=== PATIENT | female | born 1965 | race Caucasian/White ===

== ENCOUNTER 2017-02-01 09:08 | Emergency (ER) | payer MEDICARE, OTHER ==
[2017-02-01] MEDS ORDERED: NS 0.9% 1000 ML* 2,000 ML IV ONE (09:52)
[2017-02-01 10:03] LABS: Hematocrit 47 % (35-47); Hemoglobin 16.2 g/dl (12.0-16.0); Mean Corpuscular HGB Conc 34 g/dl (31-36); Mean Corpuscular Hemoglobin 29 pg (27-31); Mean Corpuscular Volume 85 fL (80-97); Mean Platelet Volume 7 um3 (7.4-10.4); Red Blood Count 5.52 10^6/ul (4.0-5.4); Red Cell Distribution Width 13 % (10.5-15); White Blood Count 6.3 10^3/ul (3.5-10.8)
[2017-02-01 10:05] LABS: Comments Flag Yes
[2017-02-01 10:06] LABS: Add Diff/Slide Review? Slide Review Added
[2017-02-01 10:24] LABS: ALT 13 U/L (7-52); Albumin 4.6 g/dL (3.2-5.2); Alkaline Phosphatase 62 U/L (34-104); Blood Urea Nitrogen 10 mg/dL (6-24); CO2 Carbon Dioxide 27 mmol/L (22-32); Calcium 10.3 mg/dL (8.6-10.3); Chloride 104 mmol/L (101-111); Creatine Kinase 50 U/L (10-223); EGFR African American 92.5 (>60); EGFR Non-African American 71.9 (>60); Globulin 3.2 g/dL (2-4); Glucose 100 mg/dL (70-100); Sodium 137 mmol/L (133-145); Total Protein 7.8 g/dL (6.4-8.9)
[2017-02-01 10:35] LABS: Cholesterol 251 mg/dL; HDL Cholesterol 54.6 mg/dL; LDL Cholesterol 177 mg/dL; Triglycerides 99 mg/dL
--- NOTE | 2017-02-01 10:47 | RAD ---
Indication: Left-sided weakness, stroke. CT of the brain was performed without IV contrast. Comparison is made with previous exam dated December 05, 2016. Ventricular structures are midline. No midline shift is noted. The extraction spaces are unremarkable. There is no evidence of intracranial mass or hemorrhage. No other high or low density lesions are identified. Mastoid air cells and paranasal sinuses are otherwise unremarkable. IMPRESSION: No intracranial mass or hemorrhage is noted.
[2017-02-01 12:50] LABS: TSH (Thyroid Stimulating Horm) 7.31 mcIU/mL (0.34-5.60)
[2017-02-01] MEDS ORDERED: Aspirin TAB* 325 MG PO ONE (12:51)
[2017-02-01 12:55] LABS: Magnesium 1.9 mg/dL (1.9-2.7)
[2017-02-01 13:07] VITALS: BP 141/68
--- NOTE | 2017-02-01 14:15 | ED ---
Jaime Diaz Auryana, scribed for Ivan Callahan MD on 02/01/17 at 1156 . Neurological HPI - HPI Summary HPI Summary: 51 year old female presents with headache starting 2 days and weakness starting 1 day ago. She reports that she also had palpitations and mild chest tightness yesterday intermittently lasting for about 1 hour. She states that her left side feels heavy but is able to control it extremities. She denies vision changes, SOB, pain with inspiration, abdominal pain, pain/edema in the lower extremities, and dysuria/abnormal urine color. She denies any trouble with ambulation. She reports recent long drive for move to [place]. PMHX of stents and denies any history of stroke or DM. No past stress test and no daily medication. She denies any tobacco, alcohol, or other drug use. She has an appointment with Dr. Oro 02/06/17 to establish care. - History of Current Complaint Chief Complaint: EDGeneral Stated Complaint: LIGHT HEADED, WEAK Time Seen by Provider: 02/01/17 09:54 Last Known Well Date: 01/30/17 Hx Obtained From: Patient Hx Last Menstrual Period: n/a Onset/Duration: Gradual Onset, Started days ago - 2 for the headache , 1 day ago - weakness, Still Present Timing: Constant Onset Severity: Mild Current Severity: Mild Seizure Severity: Moderate Pain Intensity: 7 Pain Scale Used: 0-10 Numeric Character: Weak, Motor Weakness, Other: - headache Associated Signs and Symptoms: Positive: Headache, Weakness. Negative: Unsteady Gait, Visual Changes, Pain, Impaired Speech, Numbness - Allergy/Home Medications Allergies/Adverse Reactions: Allergies Allergy/AdvReac Type Severity Reaction Status Date / Time Codeine Allergy Anaphylatic Verified 06/19/16 15:49 Shock Morphine Allergy Anaphylatic Verified 06/19/16 15:49 Shock Penicillins [PCN] Allergy Anaphylatic Verified 06/19/16 15:49 Shock PMH/Surg Hx/FS Hx/Imm Hx Endocrine/Hematology History: Denies: Hx Diabetes Cardiovascular History: Reports: Hx Cardiomegaly, Hx Coronary Artery Disease, Hx Hypertension, Other Cardiovascular Problems/Disorders - stents x8, ventrical disease, post partem cardiomyopathy Denies: Hx Congestive Heart Failure, Hx Pacemaker/ICD Sensory History: Denies: Hx Hearing Aid Psychiatric History: Reports: Hx Panic Disorder - SEVERE PTSD - QUIET SCANS AND MEDICATION NECESSARY - Cancer History Cancer Type, Location and Year: Throat CA, ovarian cancer - Surgical History Surgery Procedure, Year, and Place: PT KEEPS LEAVING AMA - MRI NEEDS ALL STENT INFO PRIOR TO PT BEING ABLE TO BE SCANNED. Hysterectomy, Lt wrist surgery with orif, right calcaneal surgery, tonsillectomy, appendectomy, laproscopic cholecystectomy. multiple heart cath and stentings - ([facility], [facility], [facility]. [facility], [facility] WAS MULTIPLE HEART PROCEDURES D/T INFECTION/CARDIAC ISSUES) MRI NEEDS ALL INFO PRIOR TO SCANNING D/T MULTIPLE STENTS (PER PT UP TO 8 TOTAL STENTS PLACED). Infectious Disease History: No Infectious Disease History: Denies: Traveled Outside the [place] in Last 30 Days - Family History Known Family History: Positive: Unknown, Cardiac Disease, Other - cancer - Social History Alcohol Use: None Alcohol Amount: unknowm Hx Substance Use: No Substance Use Type: Reports: None Hx Tobacco Use: Yes Smoking Status (MU): Former Smoker Type: Cigarettes Amount Used/How Often: 4-10 daily Length of Time of Smoking/Using Tobacco: 10 years Have You Smoked in the Last Year: Yes Review of Systems Constitutional: Negative Negative: Fever Eyes: Negative ENT: Negative Cardiovascular: Negative Negative: Chest Pain Respiratory: Negative Negative: Shortness Of Breath Positive: Weakness Psychological: Normal All Other Systems Reviewed And Are Negative: Yes Physical Exam - Summary Physical Exam Summary: The patient is well-nourished in no acute distress and in no acute pain. The skin is warm and dry and skin color reflects adequate perfusion. HEENT: The head is normocephalic and atraumatic. The pupils are equal and reactive. The conjunctivae are clear and without drainage. Nares are patent and without drainage. Mouth reveals moist mucous membranes and the throat is without erythema and exudate. The external ears are intact. The ear canals are patent and without drainage. The tympanic membranes are intact. Changes in Visual acuity in the left eye. Neck is supple with full range of motion and non-tender. There are no carotid bruits. There is no neck vein distension. Respiratory: Chest is non-tender. Lungs are clear to auscultation and breath sounds are symmetrical and equal. Cardiovascular: Hear is regular rate and rhythm. There is no murmur or rub auscultated. There is no peripheral edema and pulses are symmetrical and equal. No JVD. Abdomen: The abdomen is soft and non-tender. There are normal bowel sounds heard in all four quadrants and there is no organomegaly palpated. Musculoskeletal: There is no back pain noted. Extremities are non-tender with full range of motion. There is good capillary refill. There is no peripheral edema or calf tenderness elicited. Neurological: Patient is alert and oriented to person, place and time. The patient has symmetrical motor strength in all four extremities. Cranial nerves are grossly intact. Deep tendon reflexes are symmetrical and equal in all four extremities. No numbness in the face. No facial droop. Trouble with left shoulder shrug. Good dentition. Left arm drift and decreased motor strength as compared to the right. Left arm trouble with finger to nose. Left leg drift and trouble with heel to toe. Neg babinski sign. Psychiatric: The patient has an appropriate affect and does not exhibit any anxiety or depression. Triage Information Reviewed: Yes Vital Signs On Initial Exam: Initial Vitals Temp Pulse Resp BP Pulse Ox 98.8 F 90 20 144/92 98 02/01/17 09:10 02/01/17 09:10 02/01/17 09:10 02/01/17 09:10 02/01/17 09:10 Vital Signs Reviewed: Yes Diagnostics - Vital Signs Vital Signs Temp Pulse Resp BP Pulse Ox 02/01/17 09:15 99.2 F 100 20 144/92 98 02/01/17 09:10 98.8 F 90 20 144/92 98 - Laboratory Lab Results: Lab Results 02/01/17 Range/Units 09:45 WBC 6.3 (3.5-10.8) 10^3/ul RBC 5.52 H (4.0-5.4) 10^6/ul Hgb 16.2 H (12.0-16.0) g/dl Hct 47 (35-47) % MCV 85 (80-97) fL MCH 29 (27-31) pg MCHC 34 (31-36) g/dl RDW 13 (10.5-15) % Plt Count 286 (150-450) 10^3/ul MPV 7 L (7.4-10.4) um3 Neut % (Auto) 77.1 (38-83) % Lymph % (Auto) 17.0 L (25-47) % Stephens % (Auto) 4.3 (1-9) % Eos % (Auto) 1.3 (0-6) % Baso % (Auto) 0.3 (0-2) % Absolute Neuts (auto) 4.9 (1.5-7.7) 10^3/ul Absolute Lymphs (auto) 1.1 (1.0-4.8) 10^3/ul Absolute Monos (auto) 0.3 (0-0.8) 10^3/ul Absolute Eos (auto) 0.1 (0-0.6) 10^3/ul Absolute Basos (auto) 0 (0-0.2) 10^3/ul Absolute Nucleated RBC 0.06 10^3/ul Nucleated RBC % 0.9 Result Diagrams: 02/01/17 09:45 02/01/17 11:58 Lab Statement: Any lab studies that have been ordered have been reviewed, and results considered in the medical decision making process. - CT BRAIN CT CT Interpretation: No Acute Changes CT Interpretation Completed By: Radiologist - EKG 09:27 EKG Interpretation: NSR, NML AXIS, NON SPECIFIC CHANGES NIH Scale - NIH Scale Level of Consciousness: Alert/Keenly Responsive Ask Patient the Month and His/Her Age: Both Correct Ask Pt to Open/Close Eyes and Clock And Watch Assembler/Release Non-Paretic Hand: Both Correctly Best Gaze (Only Horizontal Eye Movement): Normal Visual Field Testing: Partial Hemianopia Facial Paresis-Pt to Smile & Close Eyes or Grimace Symmetry: Minor Paralysis Motor Function - Right Arm: No Drift-Holds 10 Seconds Motor Function - Left Arm: Drifts LT 10 seconds Motor Function - Right Leg: No Drift-Holds 10 Seconds Motor Function - Left Leg: Drifts LT 10 seconds Limb Ataxia-Must be out of Proportion to Weakness Present: Absent Sensory (Use Pinprick to Test Arms/Legs/Trunk/Face): Normal Best Language (Describe Picture, Name Items): No Aphasia Dysarthria (Read Several Words): Normal Extinction and Inattention: No Abnormality Total Score: 4 Re-Evaluation - Re-Evaluation First Eval Re-Evaluation Time: 12:19 - discussed labs, imaging, and plan of action Change: Unchanged Second Eval Re-Evaluation Time: 12:44 - Patient still wishes to leave despite recommendation to stay Course/Dx - Course Assessment/Plan: 51 year old female comes in with headache starting 2 days ago and left sided weakness starting yesterday. She also has intermittent episodes of chest tightness and palpitations. SHe has a PMHx of cardiac stents. She is not on any daily medication and has not had a stress test. She recently just moved to [place] and has a PCP appointment on 02/06/17 to establish care. Blood work ordered - TSH 7.31, AST 12, nml D-Dimer, otherwise unremarkable. CT brain ordered - negative. EKG- non-specific changes but otherwise normal. Results were discussed with patient and she wishes to go home despite recommendations for admission. Will have patient sign out AMA, recommend daily ASA, and to keep scheduled follow up appointment. Diagnosis: Stroke. - Differential Dx Differential Diagnoses Neuro: Positive: Cerebrovascular Accident, Hypertension, Transient Ischemic Attack, Other - dehydration, chest pain - Diagnoses Provider Diagnoses: Stroke, Left against medical advice Discharge - Discharge Plan Condition: Critical Disposition: AGAINST MEDICAL ADVICE Patient Education Materials: Transient Ischemic Attack (ED), Weakness (ED) Referrals: Abdirashid Oro MD [Medical Doctor] - (Keep scheduled appointment ) Additional Instructions: RECOMMENDED TO TAKE ASPIRIN DAILY. The documentation as recorded by the Jaime friend Auryana accurately reflects the service I personally performed and the decisions made by me, Ivan Callahan MD.
== END 2017-02-01 13:32 | disposition left against medical advice (07) ==
LOC: ED 09:08
DX: I63.9 Cerebral infarction, unspecified (principal); R51 Headache; R53.1 Weakness; Z87.891 Personal history of nicotine dependence; Z53.21 Procedure and treatment not carried out due to patient leaving prior to being seen by health care provider
CPT/HCPCS: 36415; 70450; 80053; 80061; 82550; 83605; 83735; 83880; 84443; 84484; 85025; 85379; 85610; 93005; 99283

== ENCOUNTER 2017-02-05 12:09 | Emergency (ER) | payer SELFPAY ==
[2017-02-05 17:07] LABS: Hematocrit 43 % (35-47); Hemoglobin 14.7 g/dl (12.0-16.0); Mean Corpuscular HGB Conc 34 g/dl (31-36); Mean Corpuscular Hemoglobin 29 pg (27-31); Mean Corpuscular Volume 84 fL (80-97); Red Blood Count 5.16 10^6/ul (4.0-5.4); Red Cell Distribution Width 13 % (10.5-15); White Blood Count 7.6 10^3/ul (3.5-10.8)
[2017-02-05 17:08] LABS: Add Diff/Slide Review? Slide Review Added; Comments Flag Yes
[2017-02-05 17:21] LABS: Albumin 4.3 g/dL (3.2-5.2); BUN/Creatinine Ratio 17.8 (8-20); Calcium 10.1 mg/dL (8.6-10.3); EGFR African American 107.2 (>60); EGFR Non-African American 83.4 (>60); Potassium 3.7 mmol/L (3.5-5.0); Total Bilirubin 0.4 mg/dL (0.2-1.0); Total Protein 7.3 g/dL (6.4-8.9)
--- NOTE | 2017-02-05 18:22 | ED ---
Jaime Diaz Auryana, scribed for Daniele Vazquez MD on 02/05/17 at 1732 . Neurological HPI - HPI Summary HPI Summary: 51 year old female presents with left sided weakness starting 04:00 this morning. She reports that she also has a headache, nausea, and tongue heaviness. She states that this morning her friend said that she sounded confused. She was seen here in [facility] with left sided weakness 2 days ago - left AMA. Per medical records - admission for left sided weakness 06/20/16. PMHx is significant for CAD, NC with stents, CVA, and ovarian cancer. - History of Current Complaint Chief Complaint: EDWeakness Stated Complaint: NUMBNESS ON LEFT SIDE Time Seen by Provider: 02/05/17 17:14 Last Known Well Date: 02/06/16 04:00 Hx Obtained From: Patient Hx Last Menstrual Period: n/a Onset/Duration: Gradual Onset, Started hours ago - AT 04:00, Still Present Timing: Constant Onset Severity: Mild Current Severity: Mild Neurological Deficit Location: Facial - left sided, LUE, LLE Headache Location: Diffuse (Right), Diffuse (Left) Pain Intensity: 5 Pain Scale Used: 0-10 Numeric Character: Motor Weakness Alleviating: Nothing Associated Signs and Symptoms: Positive: Headache, Impaired Speech - tongue heaviness and impaired speech per friend, Nausea/Vomiting - nausea - Allergy/Home Medications Allergies/Adverse Reactions: Allergies Allergy/AdvReac Type Severity Reaction Status Date / Time Codeine Allergy Anaphylatic Verified 06/19/16 15:49 Shock Morphine Allergy Anaphylatic Verified 06/19/16 15:49 Shock Penicillins [PCN] Allergy Anaphylatic Verified 06/19/16 15:49 Shock PMH/Surg Hx/FS Hx/Imm Hx Endocrine/Hematology History: Denies: Hx Diabetes Cardiovascular History: Reports: Hx Cardiomegaly, Hx Coronary Artery Disease, Hx Hypertension, Other Cardiovascular Problems/Disorders - stents x8, ventrical disease, post partem cardiomyopathy Denies: Hx Congestive Heart Failure, Hx Pacemaker/ICD Sensory History: Denies: Hx Hearing Aid Psychiatric History: Reports: Hx Panic Disorder - SEVERE PTSD - QUIET SCANS AND MEDICATION NECESSARY - Cancer History Cancer Type, Location and Year: Throat CA, ovarian cancer - Surgical History Surgery Procedure, Year, and Place: PT KEEPS LEAVING AMA - MRI NEEDS ALL STENT INFO PRIOR TO PT BEING ABLE TO BE SCANNED. Hysterectomy, Lt wrist surgery with orif, right calcaneal surgery, tonsillectomy, appendectomy, laproscopic cholecystectomy. multiple heart cath and stentings - ([facility], [facility]. [facility], [facility] WAS MULTIPLE HEART PROCEDURES D/T INFECTION/CARDIAC ISSUES) MRI NEEDS ALL INFO PRIOR TO SCANNING D/T MULTIPLE STENTS (PER PT UP TO 8 TOTAL STENTS PLACED). Infectious Disease History: Denies: Traveled Outside the US in Last 30 Days - Family History Known Family History: Positive: Unknown, Cardiac Disease, Other - cancer - Social History Occupation: Unemployed Lives: Alone Alcohol Use: None Alcohol Amount: unknowm Hx Substance Use: No Substance Use Type: Reports: None Hx Tobacco Use: Yes Smoking Status (MU): Former Smoker Type: Cigarettes Amount Used/How Often: 4-10 daily Length of Time of Smoking/Using Tobacco: 10 years Have You Smoked in the Last Year: Yes Review of Systems Constitutional: Negative Negative: Fever Eyes: Negative ENT: Negative Cardiovascular: Negative Respiratory: Negative Gastrointestinal: Negative Genitourinary: Negative Musculoskeletal: Negative Skin: Negative Positive: Weakness Psychological: Normal All Other Systems Reviewed And Are Negative: Yes Physical Exam Triage Information Reviewed: Yes Vital Signs On Initial Exam: Initial Vitals Temp Pulse Resp BP Pulse Ox 97.6 F 93 18 117/88 98 02/05/17 12:11 02/05/17 12:11 02/05/17 12:11 02/05/17 12:11 02/05/17 12:11 Vital Signs Reviewed: Yes Appearance: Positive: Well-Appearing, No Pain Distress Skin: Positive: Warm, Skin Color Reflects Adequate Perfusion, Dry Head/Face: Positive: Normal Head/Face Inspection Eyes: Positive: EOMI, KRISTOPHER ENT: Positive: Normal ENT inspection Neck: Positive: Supple, Nontender Respiratory/Lung Sounds: Positive: Clear to Auscultation, Breath Sounds Present Cardiovascular: Positive: RRR Abdomen Description: Positive: Nontender, Soft Bowel Sounds: Positive: Present Musculoskeletal: Positive: Normal, Strength/ROM Intact Neurological: Positive: Normal, Sensory/Motor Intact, Alert, Oriented to Person Place, Time, CN Intact II-III, Finger to Nose - trouble with finger to nose on L , Facial Symmetry - NML, Pronator Drift Present - on Left arm and leg, Other - reports decreased sensation on the left face,arm, and leg Psychiatric: Positive: Affect/Mood Appropriate Diagnostics - Vital Signs Vital Signs Temp Pulse Resp BP Pulse Ox 02/05/17 16:13 97.7 F 103 18 155/93 100 02/05/17 14:58 115 02/05/17 14:01 97.7 F 104 18 150/84 100 02/05/17 12:11 97.6 F 93 18 117/88 98 - Laboratory Lab Results: Lab Results 02/05/17 02/05/17 Range/Units 16:50 16:50 WBC 7.6 (3.5-10.8) 10^3/ul RBC 5.16 (4.0-5.4) 10^6/ul Hgb 14.7 (12.0-16.0) g/dl Hct 43 (35-47) % MCV 84 (80-97) fL MCH 29 (27-31) pg MCHC 34 (31-36) g/dl RDW 13 (10.5-15) % Plt Count Pending Neut % (Auto) 74.7 (38-83) % Lymph % (Auto) 19.8 L (25-47) % Lynn % (Auto) 3.5 (1-9) % Eos % (Auto) 0.9 (0-6) % Baso % (Auto) 1.1 (0-2) % Absolute Neuts (auto) 5.7 (1.5-7.7) 10^3/ul Absolute Lymphs (auto) 1.5 (1.0-4.8) 10^3/ul Absolute Monos (auto) 0.3 (0-0.8) 10^3/ul Absolute Eos (auto) 0.1 (0-0.6) 10^3/ul Absolute Basos (auto) 0.1 (0-0.2) 10^3/ul Absolute Nucleated RBC 0.02 10^3/ul Nucleated RBC % 0.3 INR (Anticoag Therapy) 0.91 (0.89-1.11) APTT 16.6 L (26.0-36.3) seconds Result Diagrams: 02/05/17 16:50 02/05/17 16:50 Lab Statement: Any lab studies that have been ordered have been reviewed, and results considered in the medical decision making process. 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 LEFT Best Gaze (Only Horizontal Eye Movement): Normal Visual Field Testing: Partial Hemianopia - trouble with finger to nose on the left Facial Paresis-Pt to Smile & Close Eyes or Grimace Symmetry: Normal/Symmetrical Motor Function - Right Arm: No Drift-Holds 10 Seconds Motor Function - Left Arm: Drifts LT 10 seconds Motor Function - Right Leg: No Drift-Holds 10 Seconds Motor Function - Left Leg: Drifts LT 10 seconds Limb Ataxia-Must be out of Proportion to Weakness Present: Absent Sensory (Use Pinprick to Test Arms/Legs/Trunk/Face): Pinprick Less on Affected - reports decreased sensation on left arm, and leg Best Language (Describe Picture, Name Items): No Aphasia Dysarthria (Read Several Words): Normal Extinction and Inattention: No Abnormality - reports decreased sensation on left side of face, arm, and leg Total Score: 5 Course/Dx - Course Course Of Treatment: NO CRITICAL CARE TIME Assessment/Plan: DISCUSSED WITH DR MICHELLE. ADMIT HOSPITALIST STABLE. - Diagnoses Provider Diagnoses: Left-sided weakness - Physician Notifications Discussed Care of Patient With: Dr. Laughlin Time Discussed With Above Provider: 17:45 - agrees to admit Discharge - Discharge Plan Condition: Stable Disposition: ADMITTED TO [facility] Referrals: Non Staff,Doctor [Primary Care Provider] - The documentation as recorded by the Jaime friend Auryana accurately reflects the service I personally performed and the decisions made by me, Daniele Vazquez MD.
[2017-02-05 18:46] LABS: TSH (Thyroid Stimulating Horm) 13.05 mcIU/mL (0.34-5.60)
[2017-02-05] MEDS ORDERED: Aspirin TAB* 325 MG PO ONE (18:56)
[2017-02-05] MEDS ORDERED: Atorvastatin* 40 MG TAB PO SCH (18:57)
[2017-02-05] MEDS ORDERED: LORazepam TAB(*) 1 MG PO PRN (18:58)
[2017-02-05] MEDS ORDERED: Metoprolol Succinate XL TAB* 25 MG PO SCH (19:00)
[2017-02-05 19:45] VITALS: BP 105/69
[2017-02-05 21:56] LABS: HDL Cholesterol 56.9 mg/dL
[2017-02-05 22:16] LABS: Free T4 0.62 ng/dL (0.61-1.12)
--- NOTE | 2017-02-06 00:09 | HP ---
HISTORY AND PHYSICAL: DATE OF ADMISSION: 02/05/17 - EMERGENCY DEPT PRIMARY CARE PHYSICIAN: Dr. Gerber Oro. CHIEF COMPLAINT: Left-sided weakness and heaviness. HISTORY OF PRESENT ILLNESS: Ms. Can is a 51-year-old female with a past medical history of hypertension; CAD, status post multiple stents; PTSD; ovarian cancer; aortic insufficiency, status post TAVR within the past 1 to 2 months; reported history of bulimia; possibly newly diagnosed throat cancer, who presents to the hospital with recent syncopal episode and left-sided weakness. The patient seems to have some mild confusion with somewhat limited history, although certainly clear on some aspects. Her friend, Pavithra, is at the bedside with the patient, asked to leave the room twice during our interaction. It seems that the patient's symptoms with left-sided weakness have been ongoing for some time. She states that 2 days ago, she was visiting her brother in assisted and apparently while she was in the assisted, while sitting at a table, she syncopized, slipped forward, and hit her head on the table. She states that she does not remember this. Her friend, Pavithra, who is present here was not there for the event; however, she spoke to the people present for it, who confirmed this. The patient is currently in the process of moving to this area from [place] to try to establish care here and get more help. The patient went back to Pavithra's house that night, was feeling very tired and fatigued, felt that her left side was "dragging." Yesterday, she went to work with Pavithra. She seemed to be doing okay throughout the day, although spent most of the day resting. That night, she made dinner for the family, although she did feel quite fatigued. This morning, the fatigue and confusion seemed to get worse and she felt that her left-sided weakness was also getting worse. States that her tongue has been heavy. Denies any dysphagia. Has not had any fever or chills, although reports some occasional sweats. Denies any shortness of breath. Has chronic nausea and vomiting. No abdominal pain. States she has frequent epistaxis and has needed transfusions in the past for hemoglobin less than 7.5. The patient was here on February 01 with similar symptoms and had a CT scan that was negative; however, she left against medical advice before she could be admitted to the hospital. The patient was also admitted here in May 2016 with similar symptoms. She was evaluated by Neurology at that time and it was felt that her symptoms may be psychosomatic in nature, as she was having large amount of stress in her life at that time, which she states she is also having now. The patient again left AMA prior to getting an MRI. PAST MEDICAL HISTORY: Hypertension; CAD, status post multiple stents; PTSD; ovarian cancer; history of bulimia; aortic insufficiency, status post TAVR; questionable throat cancer. PAST SURGICAL HISTORY: TAVR 1 to [address] [facility]; multiple stent placements; left oophorectomy and salpingectomy. HOME MEDICATIONS: None. The patient states she has tried to treat herself holistically. ALLERGIES: Reports allergies to MORPHINE, CODEINE, and PENICILLIN. FAMILY HISTORY: Significant for her mother with lung cancer. Father with Parkinson's and CAD. Paternal grandmother and paternal grandfather both with cancer. Maternal grandmother with breast cancer. SOCIAL HISTORY: The patient occasionally smokes cigarettes. States the most she smoked was about a half a pack per day for 15 years. Has an occasional glass of wine. Denies any illicit drug use. REVIEW OF SYSTEMS: A 12-point review of systems is negative except for that as noted in the HPI PHYSICAL EXAMINATION GENERAL: The patient is a middle-aged female, lying in bed, in no apparent distress. VITAL SIGNS: On admission, temperature 97.6, heart rate of 93, respiratory rate of 18, O2 saturation 98% on room air, blood pressure of 117/88. HEENT: Pupils equal, round, reactive to light and accommodation. Anicteric sclerae. Moist mucous membranes. NECK: No cervical adenopathy. LUNGS: Clear to auscultation bilaterally. No wheezes, rales, or rhonchi. CARDIOVASCULAR: Regular rate and rhythm. S1, S2 present. No murmurs, gallops , or rubs. ABDOMEN: Soft, nontender, and nondistended. Bowel sounds positive. EXTREMITIES: No cyanosis, clubbing, or edema. NEURO: The patient is alert and oriented x3. Some left-sided gaze abnormalities, left-sided facial droop. Reports decreased sensation over V2 and V3 on the left side. Left-sided weakness with shoulder shrug. Left upper extremity 4/5 strength throughout. Right upper extremity 5/5 strength throughout. Left lower extremity 4/5 strength throughout. Right lower extremity 5/5 strength throughout. No pronator drift on the left; however, she does drop the left arm. The patient also had a staring episode and some left eye twitching. DIAGNOSTIC STUDIES/LAB DATA: White blood cell count of 7.6, hemoglobin of 14.7 , hematocrit of 43, platelets of 242. INR of 0.91. Sodium of 139, potassium 3.7, chloride of 104, carbon dioxide 29, BUN of 13, creatinine 0.73. LFTs within normal limits. Troponin of 0.00. TSH of 13.05. EKG: Personally reviewed shows left ventricular hypertrophy, sinus rhythm, no acute ST changes. Recent CT of the brain, on 02/01/17, shows no intracranial mass or hemorrhage. ASSESSMENT AND PLAN: Left-sided weakness, fatigue, possibly some confusion in a 51- year-old female with past medical history of hypertension; coronary artery disease, status post stenting; posttraumatic stress disorder; ovarian cancer; aortic regurgitation, status post transcatheter aortic valve replacement ; reported history of bulimia; throat cancer, who is currently off medications. 1. Left-sided weakness. The patient is exhibiting a number of neurological symptoms. She has been seen in the hospital multiple times in the past and has signed out AMA prior to getting an MRI. She has also been evaluated by Neurology and had an EEG during the last visit as well that is within normal limits. I think there is a good chance that some or all of her symptoms are psychosomatic in nature; however, it would be prudent to rule out stroke on imaging. The patient states she has had an MRI within the past few years and would ask to be premedicated if she is to get one here. I will order an MRI and Ativan for the patient to get prior to the study. We will start the patient on aspirin and a statin. We will recheck an echocardiogram as the patient reports having a transcatheter aortic valve replacement in the interim since the last echo. We will also monitor the patient on telemetry. 2. Hypertension; coronary artery disease, status post stent placement. As noted above, we will start the patient on aspirin and atorvastatin. We will also start a low-dose beta paty. 3. Aortic insufficiency, status post transcatheter aortic valve replacement. We will try to obtain records from the patient's [facility] stay. She states she had been on blood thinners prior to admission to the hospital; however, she left AMA. It is unclear if the plan is for her to remain on blood thinners or not, but she has not been compliant. 4. Possible throat cancer. The patient states she had a biopsy at [facility]. We will try to obtain records from this as well. 5. Hypothyroidism. The patient's TSH is elevated at 13. We will a check free T4. I will plan to start the patient on thyroid replacement tomorrow morning. 6. DVT prophylaxis: SCDs. The patient states she will refuse Lovenox or subcu heparin. 7. Disposition: The patient has an appointment with PCP tomorrow. Seems she has a very complex medical history and I will try my best to have this workup done and hopefully the patient can keep her appointment tomorrow. She would benefit greatly from more consistent outpatient followup to help juggle her multiple complex medical issues. 8. Code status: The patient is a full code. TIME SPENT: Total time spent on this admission 65 minutes, with over half the time spent [id number] with the patient in counseling and coordinating care. CC: Dr. Gerber Oro* [id number]/[facility] #: [id number] DANAE
[2017-02-06] MEDS ORDERED: Levothyroxine TAB* 50 MCG TAB PO SCH (06:00)
[2017-02-06] MEDS ORDERED: Aspirin Low Dose CHEW TAB* 81 MG PO SCH (09:00)
--- NOTE | 2017-02-06 23:40 | DS ---
DISCHARGE SUMMARY: DATE OF ADMISSION: 02/05/2017. DATE OF DISCHARGE: 02/05/2017. PRIMARY CARE PHYSICIAN: Dr. Gerber Oro. HISTORY: The patient left against medical advice. Please see my full history and physical for full details. Shortly after seeing the patient and dictating the history and physical, I was called back down to the emergency department that the patient wanted to leave immediately. She said she did not want to stay for the MRI and she would instead prefer to go home. The patient signed the AMA paperwork and was sent home against medical advice as she has done numerous times in the past. TIME SPENT: Total time spent on this discharge 5 minutes. This is a summary of the hospitalization, please see the full medical record for further details. [id number]/[facility] #: [id number] MTDD
== END 2017-02-05 20:03 | disposition left against medical advice (07) ==
LOC: ED 12:09 → EEVIPCON 12:09 → UNDOADMOB 18:54 → MEDTELE 18:54 → ED 20:03
DX: R53.1 Weakness (principal); I25.10 Atherosclerotic heart disease of native coronary artery without angina pectoris; F43.10 Post-traumatic stress disorder, unspecified; I25.2 Old myocardial infarction; Z95.818 Presence of other cardiac implants and grafts; Z95.2 Presence of prosthetic heart valve; Z88.5 Allergy status to narcotic agent; Z88.0 Allergy status to penicillin; Z82.49 Family history of ischemic heart disease and other diseases of the circulatory system; F17.210 Nicotine dependence, cigarettes, uncomplicated
CPT/HCPCS: 36415; 80053; 80061; 82550; 82553; 84439; 84443; 84484; 85025; 85610; 85730; 93005; 99284

== ENCOUNTER → 2017-03-12 18:12 | Emergency (ER) | payer MEDICARE | END | disposition left against medical advice (07) | LOC: ED 18:12 | DX: K92.1 Melena (principal); Z53.21 Procedure and treatment not carried out due to patient leaving prior to being seen by health care provider ==

== ENCOUNTER → 2017-04-03 10:30 | Emergency (ER) | payer MEDICARE ==
[~2017-04-03 10:30] MED LIST: NS 0.9% 1000 ML* 1,000 ML IV ONE; Ondansetron INJ* 2 MG/ML VIAL IV ONE
[2017-04-03 12:07] LABS: Hematocrit 44 % (35-47); Hemoglobin 15.1 g/dl (12.0-16.0); Mean Corpuscular HGB Conc 35 g/dl (31-36); Mean Corpuscular Hemoglobin 30 pg (27-31); Mean Corpuscular Volume 86 fL (80-97); Mean Platelet Volume 7 um3 (7.4-10.4); Red Blood Count 5.08 10^6/ul (4.0-5.4); Red Cell Distribution Width 13 % (10.5-15); White Blood Count 5.1 10^3/ul (3.5-10.8)
--- NOTE | 2017-04-03 12:13 | RAD ---
HISTORY: COPD, febrile COMPARISONS: December 05, 2016 VIEWS: 2: Frontal dual-energy and lateral views of the chest. FINDINGS: CARDIOMEDIASTINAL SILHOUETTE: The cardiomediastinal silhouette is normal. AYDEN: The ayden are normal. PLEURA: The costophrenic angles are sharp. No pleural abnormalities are noted. LUNG PARENCHYMA: There is hyperinflation with flattening of the diaphragm . ABDOMEN: The upper abdomen is clear. There is no subphrenic gas. BONES AND SOFT TISSUES: No bone or soft tissue abnormalities are noted. OTHER: None. IMPRESSION: HYPERINFLATION, WHICH CAN BE SEEN WITH COPD OR REACTIVE AIRWAY DISEASE. NO ACTIVE CARDIOPULMONARY DISEASE.
[2017-04-03 12:17] LABS: Albumin 4.1 g/dL (3.2-5.2); BUN/Creatinine Ratio 15.1 (8-20); C Reactive Protein 4.15 mg/L (< 5.00); Calcium 9.6 mg/dL (8.6-10.3); EGFR African American 107.2 (>60); EGFR Non-African American 83.4 (>60); Globulin 2.9 g/dL (2-4); Potassium 3.8 mmol/L (3.5-5.0)
[2017-04-03 12:26] LABS: Total Bilirubin 0.7 mg/dL (0.2-1.0)
[2017-04-03 13:26] VITALS: BP 137/71
--- NOTE | 2017-04-03 14:50 | ED ---
HPI Febrile Illness - HPI Summary HPI Summary: Patient presents to ED with N/V, fever, weakness and diarrhea which has been bustamante in color x 4 days. She states she has been putting off a colonoscopy and follow up with her PCP. She denies SOB or chest pain. N/V a few times per day for several day and diarrhea x 4 days. She feels dehydrated. She states she would not like her information to be sent to her PCP. Denies other symptoms and upon arrival she is requesting to be discharged. - History of Current Complaint Chief Complaint: EDFluSymptoms Time Seen by Provider: 04/03/17 11:28 Hx Obtained From: Patient Onset/Duration: Started Days Ago Timing: Constant Initial Severity: Severe Current Severity: Severe Pain Intensity: 4 Pain Scale Used: 0-10 Numeric Aggravating Factors: Nothing Alleviating Factors: Nothing Associated Signs and Symptoms: Cough, Diaphoresis, Diarrhea, Dizziness, Headache , Nausea, Sore Throat, Vomiting, Weakness - Risk Factors Pseudomonas Risk Factors: Chronic Lung Disease Serious Bacterial Infection Risk Factors: Negative - Allergy/Home Medications Allergies/Adverse Reactions: Allergies Allergy/AdvReac Type Severity Reaction Status Date / Time Codeine Allergy Anaphylatic Verified 04/06/17 03:03 Shock Morphine Allergy Anaphylatic Verified 04/06/17 03:03 Shock Penicillins [PCN] Allergy Anaphylatic Verified 04/06/17 03:03 Shock PMH/Surg Hx/FS Hx/Imm Hx Previously Healthy: Yes Endocrine/Hematology History: Denies: Hx Diabetes Cardiovascular History: Reports: Hx Cardiomegaly, Hx Coronary Artery Disease, Hx Hypertension, Other Cardiovascular Problems/Disorders - stents x8, ventrical disease, post partem cardiomyopathy Denies: Hx Congestive Heart Failure, Hx Pacemaker/ICD Sensory History: Denies: Hx Hearing Aid Psychiatric History: Reports: Hx Panic Disorder - SEVERE PTSD - QUIET SCANS AND MEDICATION NECESSARY - Cancer History Cancer Type, Location and Year: Throat CA, ovarian cancer - Surgical History Surgery Procedure, Year, and Place: PT KEEPS LEAVING AMA - MRI NEEDS ALL STENT INFO PRIOR TO PT BEING ABLE TO BE SCANNED. Hysterectomy, Lt wrist surgery with orif, right calcaneal surgery, tonsillectomy, appendectomy, laproscopic cholecystectomy. multiple heart cath and stentings - ([facility], [facility], [facility]. [facility], [facility] WAS MULTIPLE HEART PROCEDURES D/T INFECTION/CARDIAC ISSUES) MRI NEEDS ALL INFO PRIOR TO SCANNING D/T MULTIPLE STENTS (PER PT UP TO 8 TOTAL STENTS PLACED). Hx Anesthesia Reactions: No - Immunization History Hx Pertussis Vaccination: No Immunizations Up to Date: Unable to Obtain/Confirm Infectious Disease History: No Infectious Disease History: Denies: Traveled Outside the [place] in Last 30 Days - Family History Known Family History: Positive: Unknown, Cardiac Disease, Other - cancer - Social History Occupation: Employed Full-time Lives: With Family Alcohol Use: None Alcohol Amount: unknowm Hx Substance Use: No Substance Use Type: Reports: None Hx Tobacco Use: Yes Smoking Status (MU): Former Smoker Type: Cigarettes Amount Used/How Often: 4-10 daily Length of Time of Smoking/Using Tobacco: 10 years Have You Smoked in the Last Year: Yes Review of Systems Positive: Fever, Chills, Fatigue, Skin Diaphoresis Eyes: Negative Positive: Sore Throat, Nasal Discharge Cardiovascular: Negative Positive: Shortness Of Breath, Cough Positive: Vomiting, Diarrhea, Nausea Positive: no symptoms reported, see HPI Positive: Myalgia Positive: Headache, Weakness, Paresthesia Psychological: Normal All Other Systems Reviewed And Are Negative: Yes Physical Exam Triage Information Reviewed: Yes Vital Signs On Initial Exam: Initial Vitals Temp Pulse Resp BP Pulse Ox 98.4 F 88 15 123/84 98 04/03/17 10:38 04/03/17 10:38 04/03/17 10:38 04/03/17 10:38 04/03/17 10:38 Vital Signs Reviewed: Yes Appearance: Positive: Well-Appearing, No Pain Distress, Well-Nourished Skin: Positive: Warm, Skin Color Reflects Adequate Perfusion Head/Face: Positive: Normal Head/Face Inspection Eyes: Positive: EOMI, KRISTOPHER, Conjunctiva Clear Neck: Positive: Supple, Nontender, No Lymphadenopathy Respiratory/Lung Sounds: Positive: Wheezes Cardiovascular: Positive: RRR, Pulses are Symmetrical in both Upper and Lower Extremities Musculoskeletal: Positive: Normal, Strength/ROM Intact Neurological: Positive: Sensory/Motor Intact, Alert, Oriented to Person Place, Time, Speech Normal Psychiatric: Positive: Normal Diagnostics - Vital Signs Vital Signs Temp Pulse Resp BP Pulse Ox 04/03/17 13:45 99.1 F 70 16 04/03/17 13:24 99.1 F 70 16 137/71 100 04/03/17 11:25 98.7 F 16 04/03/17 10:38 98.4 F 88 15 123/84 98 - Laboratory Lab Results: Lab Results 04/03/17 04/03/17 04/03/17 Range/Units 10:41 11:40 11:55 WBC 5.1 (3.5-10.8) 10^3/ul RBC 5.08 (4.0-5.4) 10^6/ul Hgb 15.1 (12.0-16.0) g/dl Hct 44 (35-47) % MCV 86 (80-97) fL MCH 30 (27-31) pg MCHC 35 (31-36) g/dl RDW 13 (10.5-15) % Plt Count 257 (150-450) 10^3/ul MPV 7 L (7.4-10.4) um3 Neut % (Auto) 71.8 (38-83) % Lymph % (Auto) 19.7 L (25-47) % [place] % (Auto) 6.1 (1-9) % Eos % (Auto) 1.7 (0-6) % Baso % (Auto) 0.7 (0-2) % Absolute Neuts (auto) 3.7 (1.5-7.7) 10^3/ul Absolute Lymphs (auto) 1.0 (1.0-4.8) 10^3/ul Absolute Monos (auto) 0.3 (0-0.8) 10^3/ul Absolute Eos (auto) 0.1 (0-0.6) 10^3/ul Absolute Basos (auto) 0 (0-0.2) 10^3/ul Absolute Nucleated RBC 0 10^3/ul Nucleated RBC % 0.1 Sodium (133-145) mmol/L Potassium (3.5-5.0) mmol/L Chloride (101-111) mmol/L Carbon Dioxide (22-32) mmol/L Anion Gap (2-11) mmol/L BUN (6-24) mg/dL Creatinine (0.51-0.95) mg/dL Est GFR ( Amer) (>60) Est GFR (Non-Af Amer) (>60) BUN/Creatinine Ratio (8-20) Glucose (70-100) mg/dL Lactic Acid (0.5-2.0) mmol/L Calcium (8.6-10.3) mg/dL Total Bilirubin (0.2-1.0) mg/dL AST (13-39) U/L ALT (7-52) U/L Alkaline Phosphatase (34-104) U/L C-Reactive Protein (< 5.00) mg/L Total Protein (6.4-8.9) g/dL Albumin (3.2-5.2) g/dL Globulin (2-4) g/dL Albumin/Globulin Ratio (1-3) Influenza A (Rapid) Negative (Negative) Influenza B (Rapid) Negative (Negative) Group A Strep Rapid Negative (Negative) 04/03/17 04/03/17 Range/Units 11:55 11:55 WBC (3.5-10.8) 10^3/ul RBC (4.0-5.4) 10^6/ul Hgb (12.0-16.0) g/dl Hct (35-47) % MCV (80-97) fL MCH (27-31) pg MCHC (31-36) g/dl RDW (10.5-15) % Plt Count (150-450) 10^3/ul MPV (7.4-10.4) um3 Neut % (Auto) (38-83) % Lymph % (Auto) (25-47) % [place] % (Auto) (1-9) % Eos % (Auto) (0-6) % Baso % (Auto) (0-2) % Absolute Neuts (auto) (1.5-7.7) 10^3/ul Absolute Lymphs (auto) (1.0-4.8) 10^3/ul Absolute Monos (auto) (0-0.8) 10^3/ul Absolute Eos (auto) (0-0.6) 10^3/ul Absolute Basos (auto) (0-0.2) 10^3/ul Absolute Nucleated RBC 10^3/ul Nucleated RBC % Sodium 137 (133-145) mmol/L Potassium 3.8 (3.5-5.0) mmol/L Chloride 105 (101-111) mmol/L Carbon Dioxide 28 (22-32) mmol/L Anion Gap 4 (2-11) mmol/L BUN 11 (6-24) mg/dL Creatinine 0.73 (0.51-0.95) mg/dL Est GFR ( Amer) 107.2 (>60) Est GFR (Non-Af Amer) 83.4 (>60) BUN/Creatinine Ratio 15.1 (8-20) Glucose 110 H (70-100) mg/dL Lactic Acid 1.3 (0.5-2.0) mmol/L Calcium 9.6 (8.6-10.3) mg/dL Total Bilirubin 0.70 (0.2-1.0) mg/dL AST 17 (13-39) U/L ALT 16 (7-52) U/L Alkaline Phosphatase 68 (34-104) U/L C-Reactive Protein 4.15 (< 5.00) mg/L Total Protein 7.0 (6.4-8.9) g/dL Albumin 4.1 (3.2-5.2) g/dL Globulin 2.9 (2-4) g/dL Albumin/Globulin Ratio 1.4 (1-3) Influenza A (Rapid) (Negative) Influenza B (Rapid) (Negative) Group A Strep Rapid (Negative) Result Diagrams: 04/03/17 11:55 04/03/17 11:55 Lab Statement: Any lab studies that have been ordered have been reviewed, and results considered in the medical decision making process. Course/Dx - Course Course Of Treatment: Flu/Strep negative. Febrile at 102. Labs WNL. Patient made aware and requests to leave. Advised to stay and have further workup, patient admits to being behind on her colonoscopy and has cancer in her family. She has a nosebleed on exam and continue to have a cough with sputum production. Patient states she will follow up with PCP tomorrow. Again advised to stay, but patient refuses. - Febrile Illness Differential Diagnoses: Bacteremia, Fever of Unknown Origin, GI Disease, Pyelonephritis - Diagnoses Provider Diagnoses: Fever Discharge - Discharge Plan Condition: Stable Disposition: HOME Patient Education Materials: Viral Syndrome (ED) Referrals: Abdirashid Oro MD [Primary Care Provider] - Additional Instructions: Follow up with your PCP tomorrow. If you develop worsening symptoms, return to the ED immediately Drink plenty of gatorade and other fluids Eat a bland diet Rest Tylenol 650mg three times daily for pain and fevers
== END | disposition home or self-care (01) ==
LOC: ED 10:30
DX: R05 Cough (principal); R19.7 Diarrhea, unspecified; R42 Dizziness and giddiness; R51 Headache; R11.0 Nausea; J02.9 Acute pharyngitis, unspecified; R11.10 Vomiting, unspecified; R53.1 Weakness; Z87.891 Personal history of nicotine dependence; R50.9 Fever, unspecified
CPT/HCPCS: 36415; 71020; 80053; 83605; 85025; 86140; 87502; 87651; 99282; J2405

== ENCOUNTER 2017-04-06 02:30 | Emergency (ER) | payer MEDICARE ==
[2017-04-06] MEDS ORDERED: Aspirin Low Dose CHEW TAB* 81 MG PO ONE (03:13)
[2017-04-06 04:35] VITALS: BP 130/76
--- NOTE | 2017-04-06 08:49 | RAD ---
HISTORY: Chest pain COMPARISONS: None VIEWS:1: Single frontal portable view of the chest at 3:40 AM FINDINGS: LINES AND TUBES: None. CARDIOMEDIASTINAL SILHOUETTE: The cardiomediastinal silhouette is normal for portable technique. PLEURA: The costophrenic angles are sharp. No pleural abnormalities are noted. LUNG PARENCHYMA: The lungs are clear. ABDOMEN: The upper abdomen is clear. There is no subphrenic gas. BONES AND SOFT TISSUES: No bone or soft tissue abnormalities are noted. IMPRESSION: NO ACTIVE CARDIOPULMONARY DISEASE.
--- NOTE | 2017-04-06 09:00 | ED ---
Progress - Progress Note Progress Note: Pt presented with chest pain. Based upon nursing triage and discussion with nurse, elected to start evaluation of pt with labs, EKG and CXR. Pt with hx CA and stents in her 30's due to post cardiomyopathy. Pt also reported cough, fever. Fever not documented in ED. Pt refused labs. EKG showed SR,66, NH 200, nl IVCT, nl QTc, nl axis, no acute changes. No significant change c/w . CXR shows NAD. 0420 went to evaluate pt, and pt was not in room, LWBS and left without notifying staff. Course/Dx - Diagnoses Provider Diagnoses: Patient left without being seen
== END 2017-04-06 04:30 | disposition left against medical advice (07) ==
LOC: EEVIPCON 02:30 → ED 02:30
DX: R06.02 Shortness of breath (principal); Z53.21 Procedure and treatment not carried out due to patient leaving prior to being seen by health care provider
CPT/HCPCS: 71010; 93005; A9270-GY

== ENCOUNTER 2017-05-20 10:41 | Observation (INO) | payer MEDICARE ==
--- NOTE | 2017-05-20 12:47 | RAD ---
INDICATION: Chest pain. Coronary artery disease with stents. Post cardiomyopathy. COMPARISON: April 06, 2017 chest radiograph and June 11, 2016 CT. TECHNIQUE: Dual energy PA and routine lateral views of the chest were obtained. REPORT: Clear lungs and pleural spaces. Negative for pneumothorax. The heart, pulmonary vasculature, and mediastinal contours are unremarkable. Unremarkable osseous structures and soft tissue contours. IMPRESSION: No evidence for acute intrathoracic disease.
[2017-05-20] MEDS ORDERED: Nitroglycerin 2% OINT* 1 GM PAK TOPICAL ONE (13:32)
[2017-05-20] MEDS ORDERED: Ondansetron ODT TAB* 4 MG PO ONE (13:33)
[2017-05-20 13:38] LABS: Hematocrit 42 % (35-47); Hemoglobin 14.3 g/dl (12.0-16.0); Mean Corpuscular HGB Conc 34 g/dl (31-36); Mean Corpuscular Hemoglobin 29 pg (27-31); Mean Corpuscular Volume 85 fL (80-97); Mean Platelet Volume 7 um3 (7.4-10.4); Red Blood Count 4.92 10^6/ul (4.0-5.4); Red Cell Distribution Width 13 % (10.5-15); White Blood Count 6.3 10^3/ul (3.5-10.8)
[2017-05-20 13:57] LABS: Albumin 4.1 g/dL (3.2-5.2); BUN/Creatinine Ratio 18.2 (8-20); Calcium 9.6 mg/dL (8.6-10.3); EGFR African American 100.8 (>60); EGFR Non-African American 78.4 (>60); Globulin 2.7 g/dL (2-4); Potassium 3.8 mmol/L (3.5-5.0); Total Bilirubin 0.5 mg/dL (0.2-1.0); Total Protein 6.8 g/dL (6.4-8.9)
[2017-05-20 13:58] LABS: Troponin I 0.01 ng/mL (<0.04)
--- NOTE | 2017-05-20 15:58 | ADMNOTE ---
Subjective Date of Service: 05/20/17 Interval History: ADMISSION HISTORY AND PHYSICAL EXAM: Allergies Allergy/AdvReac Type Severity Reaction Status Date / Time Codeine Allergy Anaphylatic Verified 04/06/17 03:03 Shock Morphine Allergy Anaphylatic Verified 04/06/17 03:03 Shock Penicillins [PCN] Allergy Anaphylatic Verified 04/06/17 03:03 Shock Home Medications Medication Instructions Recorded Confirmed Type Aspirin Low Dose CHEW TAB* 81 mg PO DAILY 05/20/17 05/20/17 History [Aspirin Low Dose TAB*] oxyCODONE/Acetamin 10/325(NF) 1 tab PO Q6HR PRN 05/20/17 05/20/17 History [Percocet 10/325 (NF)] HPI: Patient awoke at 4 AM today with chest pain L parasternal, radiating to L arm and L face. She had emesis in the ED waiting room. The pain subsided but never went away. No cough or SOB. No diaphoresis. She hasn't had a similar pain before. SHe has NTG at home but it is very old. She hasn't seen a general maintenance technician for years. Family History: Findings - Mother of lung ca, father had Parkinson's and CAD. GM had breast cancer. Social History: Findings - , lives alone. 4 children. Son Man Can in [facility] is her SDM. Quit smoking about 2 yrs ago. No alcohol abuse. 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 Past Medical History: Findings - [place], stents in past. TAVR in [place] about 2016. Trauma L hand and R foot, both have hardware. L ovarian cancer, L oophorectomy. PTSD. ?? throat cancer Review of Systems - Measurements Intake and Output: Intake and Output Last 24 Hours 05/18/17 05/19/17 05/20/17 05/21/17 06:59 06:59 06:59 06:59 Weight 129 lb - Review of Systems Constitutional Symptoms: Negative: Weight Gain, Weight Loss, Weakness, Fatigue, Fever, Night Sweats, Unexplained Falls, Other Dermatology: Positive: Normal HEENT: Positive: Normal Eyes: Positive: Normal Thyroid: Positive: Normal Pulmonary: Positive: Normal Cardiology: Positive: Chest Pain Gastroenterology: Positive: Vomiting Genital - Urinary: Positive: Normal Genitourinay - Female: Positive: Menopause Musculoskeletal: Positive: Other - L hip pain/sciatica Endocrinology: Positive: Normal Hematologic/Lymphatic: Negative: Anemia, Easy Brusing, Hx Leukemia, Hx Lymphoma, Use of Anticoagulant, Use of Antiplatelet Drugs, Other Neurology: Positive: Normal Psychiatry: Positive: Normal Allergic/Immunologic: Negative: Hx Anaphylaxis, Hx Angioedema, Hx Environmental, Hx Seasonal, Athsma, Hx HIV, Immunocompromise, Swollen Glands LymphNodes, Other Objective Vital Signs 05/20/17 05/20/17 05/20/17 10:57 11:49 13:04 Temperature 98.6 F 98.8 F 98.0 F Pulse Rate 96 91 84 Respiratory 20 20 20 Rate Blood Pressure 139/74 125/97 126/67 (mmHg) O2 Sat by Pulse 97 97 96 Oximetry Oxygen Devices in Use Now: None Appearance: Alert, partly up on ED stretcher. In fair spirits. Looks comfortable. Eyes: No Scleral Icterus Ears/Nose/Mouth/Throat: Clear Oropharnyx, Mucous Membranes Moist Neck: NL Appearance and Movements; NL JVP, No Thyroid Enlargement, Masses Respiratory: Symmetrical Chest Expansion and Respiratory Effort, Clear to Auscultation, Clear to Percussion Cardiovascular: RRR, No Edema, - - 1-2/6 systolic murmur LSB Abdominal: NL Sounds; No Tenderness; No Distention, No Hepatosplenomegaly, - Extremities: No Edema, No Clubbing, Cyanosis, - Skin: No Rash or Ulcers, No Nodules or Sclerosis, - Neurological: Alert and Oriented x 3, NL Sensation Result Diagrams: 05/20/17 13:20 05/20/17 13:20 Additional Lab and Data: Lab Results 05/20/17 05/20/17 Range/Units 13:20 13:20 WBC 6.3 (3.5-10.8) 10^3/ul RBC 4.92 (4.0-5.4) 10^6/ul Hgb 14.3 (12.0-16.0) g/dl Hct 42 (35-47) % MCV 85 (80-97) fL MCH 29 (27-31) pg MCHC 34 (31-36) g/dl RDW 13 (10.5-15) % Plt Count 292 (150-450) 10^3/ul MPV 7 L (7.4-10.4) um3 Neut % (Auto) 75.6 (38-83) % Lymph % (Auto) 16.6 L (25-47) % [place] % (Auto) 4.7 (1-9) % Eos % (Auto) 2.5 (0-6) % Baso % (Auto) 0.6 (0-2) % Absolute Neuts (auto) 4.7 (1.5-7.7) 10^3/ul Absolute Lymphs (auto) 1.0 (1.0-4.8) 10^3/ul Absolute Monos (auto) 0.3 (0-0.8) 10^3/ul Absolute Eos (auto) 0.2 (0-0.6) 10^3/ul Absolute Basos (auto) 0 (0-0.2) 10^3/ul Absolute Nucleated RBC 0 10^3/ul Nucleated RBC % 0.1 Sodium 136 (133-145) mmol/L Potassium 3.8 (3.5-5.0) mmol/L Chloride 104 (101-111) mmol/L Carbon Dioxide 29 (22-32) mmol/L Anion Gap 3 (2-11) mmol/L BUN 14 (6-24) mg/dL Creatinine 0.77 (0.51-0.95) mg/dL Est GFR ( Amer) 100.8 (>60) Est GFR (Non-Af Amer) 78.4 (>60) BUN/Creatinine Ratio 18.2 (8-20) Glucose 108 H (70-100) mg/dL Calcium 9.6 (8.6-10.3) mg/dL Total Bilirubin 0.50 (0.2-1.0) mg/dL AST 14 (13-39) U/L ALT 12 (7-52) U/L Alkaline Phosphatase 63 (34-104) U/L Troponin I 0.01 (<0.04) ng/mL Total Protein 6.8 (6.4-8.9) g/dL Albumin 4.1 (3.2-5.2) g/dL Globulin 2.7 (2-4) g/dL Albumin/Globulin Ratio 1.5 (1-3) Assess/Plan/Problems-Billing Assessment: - Patient Problems (1) Chest pain Current Visit: Yes Status: Acute Code(s): R07.9 - CHEST PAIN, UNSPECIFIED SNOMED Code(s): 97089695 Comment: Atypical pain. Troponin and ECG unremarkable 9 and 7 hours after onset of pain. Tele, second troponin, nuclear stress test. Pt wants to try treadmill. Continue ASA. LD 138 on 02/05/17, should be on statin. Pt has stated she does not like medicine, treats herself "holistically". I will discuss statin tx with her on discharge. (2) PTSD (post-traumatic stress disorder) Current Visit: Yes Status: Acute Code(s): F43.10 - POST-TRAUMATIC STRESS DISORDER, UNSPECIFIED SNOMED Code(s): 61979169 Comment: Dx noted. Patient evidently not interested in drug tx.
[2017-05-20] MEDS: Nitroglycerin TAB 0.4 MG* 0.4 MG TAB SL PRN ×4 (16:43→21:13)
[2017-05-20] MEDS ORDERED: Ondansetron INJ* 2 MG/ML VIAL IV ONE (17:25)
[2017-05-20] MEDS ORDERED: Metoprolol Tartrate IV* 1 MG/ML 5 ML VIAL IV ONE (17:25)
[2017-05-20] MEDS ORDERED: Morphine INJ* 2 MG/ML 1 ML SYRINGE IV ONE (17:25)
[2017-05-20] MEDS ORDERED: Morphine INJ* 2 MG/ML 1 ML SYRINGE ONE (17:28)
[2017-05-20] MEDS ORDERED: Metoprolol Tartrate IV* 1 MG/ML 5 ML VIAL ONE (17:35)
[2017-05-20] MEDS ORDERED: Midazolam* 1 MG/ML 5 ML VIAL (5 MG) ONE (17:44)
[2017-05-20] MEDS ORDERED: fentaNYL* 50 MCG/ML 2 ML VIAL (100 MCG VIAL) ONE (17:44)
[2017-05-20] MEDS ORDERED: Heparin 2 UNITS/ML IVPREMIX* 0 ML IV ONE (17:44)
[2017-05-20] MEDS ORDERED: nitroGLYCERIN DRIP* 0 ML ONE (17:45)
[2017-05-20] MEDS ORDERED: Heparin VIAL(*) 5000 UNITS/ML VIAL (FIVE THOUSAND) IV ONE (17:45)
[2017-05-20] MEDS ORDERED: Lidocaine 1% INJ* 10 MG/ML 30 ML SDV ONE (17:45)
[2017-05-20] MEDS ORDERED: Iohexol 350 (CONTRAST) 200 ML MDV IV ONE (17:45)
[2017-05-20] MEDS ORDERED: Heparin VIAL(*) 5000 UNITS/ML VIAL (FIVE THOUSAND) ONE (17:49)
[2017-05-20] MEDS ORDERED: Ondansetron INJ* 2 MG/ML VIAL ONE (17:50)
[2017-05-20 17:56] LABS: Hematocrit 41 % (35-47); Hemoglobin 14.1 g/dl (12.0-16.0); Mean Corpuscular HGB Conc 35 g/dl (31-36); Mean Corpuscular Hemoglobin 29 pg (27-31); Mean Corpuscular Volume 84 fL (80-97); Mean Platelet Volume 7 um3 (7.4-10.4); Red Blood Count 4.81 10^6/ul (4.0-5.4); Red Cell Distribution Width 13 % (10.5-15); White Blood Count 5.6 10^3/ul (3.5-10.8)
[2017-05-20 18:13] LABS: BUN/Creatinine Ratio 22.4 (8-20); Calcium 9.6 mg/dL (8.6-10.3); EGFR African American 102.4 (>60); EGFR Non-African American 79.6 (>60); Globulin 2.6 g/dL (2-4); Potassium 3.5 mmol/L (3.5-5.0); Total Bilirubin 0.3 mg/dL (0.2-1.0); Total Protein 6.6 g/dL (6.4-8.9)
[2017-05-20 18:15] LABS: Troponin I 0.01 ng/mL (<0.04)
[2017-05-20] MEDS ORDERED: Heparin 2 UNITS/ML IVPREMIX* 1,000 ML IV ONE (18:23)
--- NOTE | 2017-05-20 18:47 | ED ---
Lucy Diaz Edward, scribed for Ashok Rodriguez MD on 05/20/17 at 1333 . HPI Chest Pain - HPI Summary HPI Summary: 51 y/o female presents to the ED c/o CP starting at 04:00 this morning. The pain is rated at a 7/10 in severity, described as a pressure like someone is "sitting on her chest". It is still present in the ED. Associated sx: diaphoresis, N/V, dizziness, SOB. Light smoker. Non drinker. PMHx HTN, TIA's and CAD. FHx cardiac disease, CVA. - History of Current Complaint Chief Complaint: EDChestPainROMI Time Seen by Provider: 05/20/17 13:27 Hx Obtained From: Patient Hx Last Menstrual Period: n/a Onset/Duration: Started Hours Ago - 04:00 today, Still Present Current Severity: Moderate Pain Intensity: 7 Pain Scale Used: 0-10 Numeric Character: Other: - "someone sitting on my chest" Associated Signs and Symptoms: Positive: Chest Pain, Dizziness, Shortness of Breath, Diaphoresis, Nausea, Vomiting - Allergy/Home Medications Allergies/Adverse Reactions: Allergies Allergy/AdvReac Type Severity Reaction Status Date / Time Codeine Allergy Anaphylatic Verified 04/06/17 03:03 Shock Morphine Allergy Anaphylatic Verified 04/06/17 03:03 Shock Penicillins [PCN] Allergy Anaphylatic Verified 04/06/17 03:03 Shock Home Medications: Home Medications Aspirin Low Dose CHEW TAB* [Aspirin Low Dose TAB*] 81 mg PO DAILY 05/20/17 [ History Confirmed 05/20/17] oxyCODONE/Acetamin 10/325(NF) [Percocet 10/325 (NF)] 1 tab PO Q6HR PRN 05/20/17 [History Confirmed 05/20/17] PMH/Surg Hx/FS Hx/Imm Hx Previously Healthy: No Endocrine/Hematology History: Denies: Hx Diabetes Cardiovascular History: Reports: Hx Cardiomegaly, Hx Coronary Artery Disease, Hx Hypertension, Other Cardiovascular Problems/Disorders - stents x8, ventrical disease, post partem cardiomyopathy Denies: Hx Congestive Heart Failure, Hx Pacemaker/ICD Sensory History: Denies: Hx Hearing Aid Psychiatric History: Reports: Hx Panic Disorder - SEVERE PTSD - QUIET SCANS AND MEDICATION NECESSARY - Cancer History Cancer Type, Location and Year: Throat CA, ovarian cancer - Surgical History Surgery Procedure, Year, and Place: PT KEEPS LEAVING AMA - MRI NEEDS ALL STENT INFO PRIOR TO PT BEING ABLE TO BE SCANNED. Hysterectomy, Lt wrist surgery with orif, right calcaneal surgery, tonsillectomy, appendectomy, laproscopic cholecystectomy. multiple heart cath and stentings - ([facility], [place] - [facility], [place]. [facility], [facility] WAS MULTIPLE HEART PROCEDURES D/T INFECTION/CARDIAC ISSUES) MRI NEEDS ALL INFO PRIOR TO SCANNING D/T MULTIPLE STENTS (PER PT UP TO 8 TOTAL STENTS PLACED). Hx Anesthesia Reactions: No Infectious Disease History: Yes Infectious Disease History: Denies: Traveled Outside the [place] in Last 30 Days - Family History Known Family History: Positive: Unknown, Cardiac Disease, Other - cancer - Social History Alcohol Use: None Alcohol Amount: unknowm Hx Substance Use: No Substance Use Type: Reports: None Hx Tobacco Use: Yes Smoking Status (MU): Former Smoker Type: Cigarettes Amount Used/How Often: 4-10 daily Length of Time of Smoking/Using Tobacco: 10 years Have You Smoked in the Last Year: Yes Review of Systems Positive: Skin Diaphoresis Eyes: Negative ENT: Negative Positive: Chest Pain Positive: Shortness Of Breath Positive: Vomiting, Nausea Genitourinary: Negative Musculoskeletal: Negative Skin: Negative Neurological: Other - Dizziness Psychological: Normal All Other Systems Reviewed And Are Negative: Yes Physical Exam Triage Information Reviewed: Yes Vital Signs On Initial Exam: Initial Vitals Temp Pulse Resp BP Pulse Ox 98.6 F 96 20 139/74 97 05/20/17 10:57 05/20/17 10:57 05/20/17 10:57 05/20/17 10:57 05/20/17 10:57 Vital Signs Reviewed: Yes Appearance: Positive: Well-Appearing, No Pain Distress Skin: Positive: Warm, Skin Color Reflects Adequate Perfusion Head/Face: Positive: Normal Head/Face Inspection Eyes: Positive: EOMI ENT: Positive: Pharynx normal Neck: Positive: Nontender Respiratory/Lung Sounds: Positive: Clear to Auscultation, Breath Sounds Present Cardiovascular: Positive: RRR. Negative: Murmur Abdomen Description: Positive: Nontender Musculoskeletal: Negative: Edema Left, Edema Right Neurological: Positive: Sensory/Motor Intact, CN Intact II-III Psychiatric: Positive: Normal AVPU Assessment: Alert - Mehul Coma Scale Coma Scale Total: 15 Diagnostics - Vital Signs Vital Signs Temp Pulse Resp BP Pulse Ox 05/20/17 13:04 98.0 F 84 20 126/67 96 05/20/17 11:49 98.8 F 91 20 125/97 97 05/20/17 10:57 98.6 F 96 20 139/74 97 - Laboratory Lab Results: Lab Results 05/20/17 05/20/17 Range/Units 13:20 13:20 WBC 6.3 (3.5-10.8) 10^3/ul RBC 4.92 (4.0-5.4) 10^6/ul Hgb 14.3 (12.0-16.0) g/dl Hct 42 (35-47) % MCV 85 (80-97) fL MCH 29 (27-31) pg MCHC 34 (31-36) g/dl RDW 13 (10.5-15) % Plt Count 292 (150-450) 10^3/ul MPV 7 L (7.4-10.4) um3 Neut % (Auto) 75.6 (38-83) % Lymph % (Auto) 16.6 L (25-47) % [place] % (Auto) 4.7 (1-9) % Eos % (Auto) 2.5 (0-6) % Baso % (Auto) 0.6 (0-2) % Absolute Neuts (auto) 4.7 (1.5-7.7) 10^3/ul Absolute Lymphs (auto) 1.0 (1.0-4.8) 10^3/ul Absolute Monos (auto) 0.3 (0-0.8) 10^3/ul Absolute Eos (auto) 0.2 (0-0.6) 10^3/ul Absolute Basos (auto) 0 (0-0.2) 10^3/ul Absolute Nucleated RBC 0 10^3/ul Nucleated RBC % 0.1 Sodium 136 (133-145) mmol/L Potassium 3.8 (3.5-5.0) mmol/L Chloride 104 (101-111) mmol/L Carbon Dioxide 29 (22-32) mmol/L Anion Gap 3 (2-11) mmol/L BUN 14 (6-24) mg/dL Creatinine 0.77 (0.51-0.95) mg/dL Est GFR ( Amer) 100.8 (>60) Est GFR (Non-Af Amer) 78.4 (>60) BUN/Creatinine Ratio 18.2 (8-20) Glucose 108 H (70-100) mg/dL Calcium 9.6 (8.6-10.3) mg/dL Total Bilirubin 0.50 (0.2-1.0) mg/dL AST 14 (13-39) U/L ALT 12 (7-52) U/L Alkaline Phosphatase 63 (34-104) U/L Troponin I 0.01 (<0.04) ng/mL Total Protein 6.8 (6.4-8.9) g/dL Albumin 4.1 (3.2-5.2) g/dL Globulin 2.7 (2-4) g/dL Albumin/Globulin Ratio 1.5 (1-3) Result Diagrams: 05/20/17 17:45 05/20/17 17:45 Lab Statement: Any lab studies that have been ordered have been reviewed, and results considered in the medical decision making process. - Radiology CXR Xray Interpretation: No Acute Changes - No evidence for acute intrathoracic disease. Radiology Interpretation Completed By: Radiologist - EKG 1 EKG Interpretation: 11:02 - SINUS RHYTHM @ 85 BPM. NO STEMI Chest Pain Course/Dx - Diagnoses Provider Diagnoses: Chest pain - Provider Notifications Discussed Care Of Patient With: Brigitte Villarreal Time Discussed With Above Provider: 15:15 Discharge - Discharge Plan Condition: Fair Disposition: ADMITTED TO [facility] documentation as recorded by the Lucy friend Edward accurately reflects the service I personally performed and the decisions made by Jennifer vegas Walter, MD.
[2017-05-20] MEDS: Morphine INJ* 2 MG/ML 1 ML SYRINGE IV PRN ×2 (19:08→21:22)
[2017-05-20] MEDS ORDERED: Heparin DRIP 25,000 UNITS(*) 25,000 UNITS/500 ML BAG IV SCH (20:15)
[2017-05-20] MEDS ORDERED: Heparin VIAL(*) 5000 UNITS/ML VIAL (FIVE THOUSAND) IV SCH (21:00)
[2017-05-20 21:24] LABS: Hematocrit 41 % (35-47); Hemoglobin 13.8 g/dl (12.0-16.0); Mean Corpuscular HGB Conc 34 g/dl (31-36); Mean Corpuscular Hemoglobin 29 pg (27-31); Mean Corpuscular Volume 85 fL (80-97); Mean Platelet Volume 7 um3 (7.4-10.4); Red Blood Count 4.78 10^6/ul (4.0-5.4); Red Cell Distribution Width 13 % (10.5-15); White Blood Count 5.4 10^3/ul (3.5-10.8)
[2017-05-20 21:42] LABS: Troponin I 0.01 ng/mL (<0.04)
[2017-05-21 00:44] LABS: Troponin I 0.01 ng/mL (<0.04)
[2017-05-21] MEDS: Morphine INJ* 2 MG/ML 1 ML SYRINGE IV PRN ×2 (05:38→20:20)
--- NOTE | 2017-05-21 07:39 | PN ---
Subjective Date of Service: 05/21/17 Interval History: No chest pain overnight. No new c/o. Family History: Findings - Mother of lung ca, father had Parkinson's and CAD. GM had breast cancer. Social History: Findings - , lives alone. 4 children. Son Man Can in [facility] is her SDM. Quit smoking about 2 yrs ago. No alcohol abuse. 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 Past Medical History: Findings - [place], stents in past. TAVR in [place] about 2016. Trauma L hand and R foot, both have hardware. L ovarian cancer, L oophorectomy. PTSD. ?? throat cancer Objective Active Medications: Aspirin (Aspirin Low Dose Tab*) 81 mg PO DAILY [place] Heparin Sodium (Porcine) (Heparin Vial(*)) 0 units IV .PER PROTOCOL [place] PRN Reason: Protocol Heparin Sodium/Dextrose (Heparin Drip 25,000 Units(*)) 25,000 units in 500 mls @ 0 mls/hr IV .NO INITIAL BOLUS [facility]; As Directed PRN Reason: Protocol Last Admin: 05/20/17 21:55 Dose: 19 mls/hr Morphine Sulfate (Morphine Inj (Syringe)*) 2 mg IV Q2H PRN PRN Reason: PAIN Last Admin: 05/21/17 05:38 Dose: 2 mg Nitroglycerin (Nitroglycerin Tab 0.4 Mg*) 0.4 mg SL Q5M PRN PRN Reason: ANGINA Last Admin: 05/20/17 21:13 Dose: 0.4 mg Vital Signs 05/20/17 05/20/17 05/20/17 15:30 16:00 16:40 Temperature 97.9 F Pulse Rate 73 76 69 Respiratory 17 16 40 Rate Blood Pressure 107/56 120/81 122/68 (mmHg) O2 Sat by Pulse 96 96 100 Oximetry 05/20/17 05/20/17 05/20/17 18:34 18:36 18:45 Temperature 99 F Pulse Rate 66 66 70 Respiratory 25 32 21 Rate Blood Pressure 118/81 118/81 127/70 (mmHg) O2 Sat by Pulse 98 98 97 Oximetry 05/20/17 05/20/17 05/20/17 18:56 19:00 19:01 Temperature Pulse Rate 74 71 Respiratory 40 24 18 Rate Blood Pressure 152/85 (mmHg) O2 Sat by Pulse 97 99 Oximetry 05/20/17 05/20/17 05/20/17 19:08 19:16 19:30 Temperature Pulse Rate 73 68 Respiratory 14 18 21 Rate Blood Pressure 127/75 143/94 (mmHg) O2 Sat by Pulse 95 99 Oximetry 05/20/17 05/20/17 05/20/17 19:45 20:00 20:02 Temperature Pulse Rate 67 66 68 Respiratory 17 20 17 Rate Blood Pressure 132/77 138/74 (mmHg) O2 Sat by Pulse 98 98 98 Oximetry 05/20/17 05/20/17 05/20/17 20:31 20:45 21:00 Temperature Pulse Rate 74 72 73 Respiratory 18 21 21 Rate Blood Pressure 87/76 110/81 123/78 (mmHg) O2 Sat by Pulse 96 96 94 Oximetry 05/20/17 05/20/17 05/20/17 21:10 21:16 21:22 Temperature Pulse Rate 80 Respiratory 21 22 24 Rate Blood Pressure 109/82 (mmHg) O2 Sat by Pulse 94 Oximetry 05/20/17 05/20/17 05/20/17 21:39 21:45 22:00 Temperature Pulse Rate 64 74 69 Respiratory 19 17 18 Rate Blood Pressure 139/71 103/56 (mmHg) O2 Sat by Pulse 95 99 98 Oximetry 05/20/17 05/20/17 05/20/17 22:01 22:15 22:32 Temperature Pulse Rate 72 64 65 Respiratory 18 17 16 Rate Blood Pressure 105/45 118/67 155/146 (mmHg) O2 Sat by Pulse 96 98 98 Oximetry 05/20/17 05/20/17 05/21/17 23:00 23:30 00:00 Temperature Pulse Rate 66 72 67 Respiratory 15 13 13 Rate Blood Pressure 123/66 97/52 98/62 (mmHg) O2 Sat by Pulse 93 95 98 Oximetry 05/21/17 05/21/17 05/21/17 00:29 00:30 01:00 Temperature Pulse Rate 63 61 67 Respiratory 24 15 15 Rate Blood Pressure 109/53 86/50 (mmHg) O2 Sat by Pulse 92 92 93 Oximetry 05/21/17 05/21/17 05/21/17 01:30 02:00 02:30 Temperature Pulse Rate 63 65 61 Respiratory 14 20 16 Rate Blood Pressure 98/55 94/52 102/46 (mmHg) O2 Sat by Pulse 93 93 94 Oximetry 05/21/17 05/21/17 05/21/17 03:00 03:31 04:00 Temperature 97.3 F Pulse Rate 61 58 57 Respiratory 15 21 15 Rate Blood Pressure 95/51 114/58 91/52 (mmHg) O2 Sat by Pulse 94 97 96 Oximetry 05/21/17 05/21/17 05/21/17 04:30 05:00 05:30 Temperature Pulse Rate 59 61 63 Respiratory 18 10 14 Rate Blood Pressure 101/52 101/49 87/53 (mmHg) O2 Sat by Pulse 95 95 93 Oximetry 05/21/17 05/21/17 05/21/17 05:32 05:38 06:00 Temperature Pulse Rate 61 Respiratory 17 17 15 Rate Blood Pressure (mmHg) O2 Sat by Pulse 96 Oximetry 05/21/17 05/21/17 06:01 06:30 Temperature Pulse Rate 60 62 Respiratory 13 15 Rate Blood Pressure 105/61 101/50 (mmHg) O2 Sat by Pulse 96 95 Oximetry Oxygen Devices in Use Now: None Appearance: Alert, supine in bed. In good spirits. Looks comfortable. Eyes: No Scleral Icterus Neck: NL Appearance and Movements; NL JVP, No Thyroid Enlargement, Masses Respiratory: Symmetrical Chest Expansion and Respiratory Effort, Clear to Auscultation, Clear to Percussion Cardiovascular: NL Sounds; No Murmurs; No JVD, RRR, No Edema, - Extremities: No Edema, No Clubbing, Cyanosis, - Skin: No Rash or Ulcers, No Nodules or Sclerosis, - Neurological: Alert and Oriented x 3, NL Sensation Result Diagrams: 05/20/17 21:15 05/20/17 21:15 Additional Lab and Data: Lab Results 05/20/17 05/20/17 Range/Units 13:20 13:20 WBC 6.3 (3.5-10.8) 10^3/ul RBC 4.92 (4.0-5.4) 10^6/ul Hgb 14.3 (12.0-16.0) g/dl Hct 42 (35-47) % MCV 85 (80-97) fL MCH 29 (27-31) pg MCHC 34 (31-36) g/dl RDW 13 (10.5-15) % Plt Count 292 (150-450) 10^3/ul MPV 7 L (7.4-10.4) um3 Neut % (Auto) 75.6 (38-83) % Lymph % (Auto) 16.6 L (25-47) % [place] % (Auto) 4.7 (1-9) % Eos % (Auto) 2.5 (0-6) % Baso % (Auto) 0.6 (0-2) % Absolute Neuts (auto) 4.7 (1.5-7.7) 10^3/ul Absolute Lymphs (auto) 1.0 (1.0-4.8) 10^3/ul Absolute Monos (auto) 0.3 (0-0.8) 10^3/ul Absolute Eos (auto) 0.2 (0-0.6) 10^3/ul Absolute Basos (auto) 0 (0-0.2) 10^3/ul Absolute Nucleated RBC 0 10^3/ul Nucleated RBC % 0.1 Sodium 136 (133-145) mmol/L Potassium 3.8 (3.5-5.0) mmol/L Chloride 104 (101-111) mmol/L Carbon Dioxide 29 (22-32) mmol/L Anion Gap 3 (2-11) mmol/L BUN 14 (6-24) mg/dL Creatinine 0.77 (0.51-0.95) mg/dL Est GFR ( Amer) 100.8 (>60) Est GFR (Non-Af Amer) 78.4 (>60) BUN/Creatinine Ratio 18.2 (8-20) Glucose 108 H (70-100) mg/dL Calcium 9.6 (8.6-10.3) mg/dL Total Bilirubin 0.50 (0.2-1.0) mg/dL AST 14 (13-39) U/L ALT 12 (7-52) U/L Alkaline Phosphatase 63 (34-104) U/L Troponin I 0.01 (<0.04) ng/mL Total Protein 6.8 (6.4-8.9) g/dL Albumin 4.1 (3.2-5.2) g/dL Globulin 2.7 (2-4) g/dL Albumin/Globulin Ratio 1.5 (1-3) Assess/Plan/Problems-Billing Assessment: - Patient Problems (1) Chest pain Current Visit: Yes Status: Acute Code(s): R07.9 - CHEST PAIN, UNSPECIFIED SNOMED Code(s): 58556377 Comment: Atypical pain. All troponins, CKMB, myoglobin wnl, also repeat ECG' s. Nuclear stress test. Pt wants to try treadmill. Continue ASA. LD 138 on 02/05/17, should be on statin. Pt has stated she does not like medicine, treats herself "holistically". Start high-dose statin tx--I discussed reason for this with the patient. (2) PTSD (post-traumatic stress disorder) Current Visit: Yes Status: Acute Code(s): F43.10 - POST-TRAUMATIC STRESS DISORDER, UNSPECIFIED SNOMED Code(s): 95600117 Comment: Dx noted. Patient evidently not interested in drug tx for this.
[2017-05-21] MEDS: Aspirin Low Dose CHEW TAB* 81 MG PO SCH (08:40)
--- NOTE | 2017-05-21 11:44 | ECHO ---
Patient: YOSELIN JOSEPH [facility] Rec#: [id number] : 1965 Date: 05/21/2017 Age: 51y Height: 165 cm / 65.0 in Weight: 62.3 kg / 137.3 lbs Sex: F BSA: 1.7 Room#: ICU 9 Admit Date#: 05/20/2017 Type: Inpatient Referring: Matt Marmolejo MD Reading: Matt Marmolejo MD Fast Food Delivery Driver: Eladia Rousseau RN RDCS CC: Abdirashid Oro MD Transthoracic Echocardiogram Indication: Chest pain BP: 106/66 HR: 65 Rhythm: NSR Findings History: CAD with AK and multiple stents, HTN, cardiomyopathy, TIAs, smoker, possible throat cancer, ovarian cancer, PTSD Technical Comments: The study quality is fair. The study is technically limited due to the patient's smoking history. Left Ventricle: The left ventricular chamber size is normal. Mild concentric left ventricular hypertrophy is observed. There is increased basal septal hypertrophy noted without evidence of an increased gradient across the left ventricular outflow tract. The septal knuckle measures 1.3cm. Global left ventricular wall motion and contractility are within normal limits. There is normal left ventricular systolic function. The estimated ejection fraction is 55-60%. There is no consistent Doppler evidence of clinically significant diastolic dysfunction. Left Atrium: The left atrial chamber size is normal. Right Ventricle: The right ventricular chamber size and systolic function are within normal limits. Right Atrium: The right atrial cavity size is normal. Aortic Valve: The aortic valve is trileaflet. There is no evidence of aortic regurgitation. There is no evidence of aortic stenosis. Mitral Valve: The mitral valve leaflets are mildly thickened. There is a trace of mitral regurgitation. There is no evidence of mitral stenosis. Tricuspid Valve: The tricuspid valve leaflets are normal. There is trace to mild tricuspid regurgitation. No pulmonary hypertension is noted. There is no tricuspid stenosis. Pulmonic Valve: The pulmonic valve structure is not well visualized. There is no evidence of pulmonic regurgitation. There is no pulmonic stenosis. Pericardium: There is no significant pericardial effusion. A pericardial fat pad is visualized. Aorta: There is no dilatation of the ascending aorta. There is no dilatation of the aortic arch. There is no dilation of the aortic root. Pulmonary Artery: The main pulmonary artery is not well visualized. Venous: The inferior vena cava appears normal in size. There is a greater than 50% respiratory change in the inferior vena cava dimension. Conclusions Mild concentric left ventricular hypertrophy is observed. Global left ventricular wall motion and contractility are within normal limits. There is normal left ventricular systolic function. The estimated ejection fraction is 55-60%. No significant valvular disease: There is a trace of mitral regurgitation. There is trace to mild tricuspid regurgitation. Compared to report of full study of 06/21/2016 there are no significant changes with mild incease to the degree reported of tricuspid regurgitation (was trace). Measurements Name Value Normal Range RVDdMajor (2D) 3.2 cm (2.2 - 4.4) RAd ISD 4CH 4.2 cm (3.4 - 4.9) RA (A4C)W 3.2 cm (2.9 - 4.6) IVSd (2D) 1.1 cm (0.6 - 1) LVPWd (2D) 1.1 cm (0.6 - 1) LVIDd (2D) 3.8 cm (3.6 - 5.4) LVIDs (2D) 2.6 cm - LV FS (2D) 32 % (25 - 45) Aortic Annulus 2.1 cm (1.4 - 2.6) Ao root diameter (2D) 2.9 cm (2.1 - 3.5) Ascending Ao 2.7 cm (2.1 - 3.4) Aortic arch 2.5 cm (1.8 - 3.4) LA dimension (AP) 2D 2.5 cm (2.3 - 3.8) LAd ISD 4CH 4 cm (2.9 - 5.3) LA ISD 4CH W 4 cm (2.5 - 4.5) Name Value Normal Range LA ESV SP 4CH (A/L) 37.6 ml - LA ESV SP 2CH (A/L) 41.8 ml - LA ESV BP (A/L) 41.7 ml - LA ESV BP (A/L) index 24.7 ml/m2 - LA ESV SP 4CH (MOD) 36.4 ml - LA ESV SP 2CH (MOD) 39.4 ml - Name Value Normal Range MV E-wave Vmax 0.64 m/sec - MV deceleration time 248 msec - MV A-wave Vmax 0.83 m/sec - MV E:A ratio 0.78 ratio - LV septal e' Vmax 0.07 m/sec - LV lateral e' Vmax 0.07 m/sec - LV E:e' septal ratio 9.1 ratio - LV E:e' lateral ratio 9.1 ratio - Name Value Normal Range AV Vmax 1.1 m/sec - AV VTI 27.2 cm - AV peak gradient 5 mmHg - AV mean gradient 3 mmHg - LVOT diameter 2 cm - LVOT Vmax 0.87 m/sec - LVOT VTI 18.8 cm - LVOT peak gradient 3 mmHg - LVOT mean gradient 1.9 mmHg - DOI (VTI) 0.69 ratio - DOI (Vmax) 0.79 ratio - SV LVOT 62 ml - KARIS (continuity Vmax) 2.5 cm2 - KARIS (continuity VTI) 2.2 cm2 - MIESHA Vmax 0.93 m/sec - Name Value Normal Range TR Vmax 2 m/sec - TR peak gradient 16 mmHg - RAP 3 mmHg - RVSP 19 mmHg - IVC diameter 1.1 cm - Name Value Normal Range PV Vmax 0.72 m/sec -
[2017-05-21] MEDS ORDERED: Regadenoson* 0.4 MG/5 ML SYRINGE ONE (11:56)
--- NOTE | 2017-05-21 13:18 | RAD ---
HISTORY: Chest pain, hypertension, hyperlipidemia, previous HI and angioplasty, family history of heart disease COMPARISONS: None TECHNIQUE: A 1 day stress/rest myocardial perfusion study was performed, with pharmacologic stress. The stress portion was monitored by Dr. Mckeon. Gated SPECT imaging was performed, with CT-based attenuation correction DOSE: Stress: Technetium 99m tetrofosmin, 25.05 millicuries, injected at 11:59 AM on May 21, 2017 Rest: Technetium 99m tetrofosmin, 10.3 millicuries, injected at 9:45 AM on May 21, 2017 Pharmacologic agent: Lexiscan FINDINGS: CARDIAC MONITORING: Resting EKG abnormalities without change EF: 66 % TID: 1 MOTION: Normal motion, with normal wall thickening. PERFUSION: There is a small partially reversible defect of the junction of the septum. OTHER: None IMPRESSION: SMALL PARTIALLY REVERSIBLE DEFECT OF THE SEPTUM. ASSESSMENT: LOW RISK. Based on imaging criteria from ACC/AHA 2002. Guideline Update for the Management of Patient's with Chronic Stable Angina, table 23. Noninvasive Risk Stratification.
--- NOTE | 2017-05-21 13:46 | CONS ---
CC: Dr. Gerber Oro * CARDIOLOGY CONSULT: DATE OF CONSULT: 05/20/17 INDICATION FOR CONSULT: Patient presents with severe chest discomfort, abnormal EKG with a STEMI alert call. HISTORY OF PRESENT ILLNESS: The patient is a 51-year-old female whose history is very difficult at best to get in discussing with her she mentions may facts that do not appear to be the case after retrospective review. She stated that she had a history of having had multiple stents placed in the past for her coronary arteries, in addition to having had cardiomyopathy. She presented to the emergency room on 05/20/17. Reportedly, she woke with severe chest discomfort at 4 a.m. with radiation to the left arm and the left face. She apparently eventually decided to go to the emergency room and actually presented there at 10:41 a.m. some 6 hours at least later. She stated, although the pain got less and less, it never completely went away and did vomit in the emergency room. She denied definitive shortness of breath or diaphoresis. She, in the emergency room was noted to have negative cardiac enzymes and her EKG did not show any acute ST-T wave changes. She was admitted to the floor and several hours later had recurrent severe discomfort that had worsened and a repeat EKG raised a question of possible ST segment elevations in the early precordial leads, although the ST configuration was concave upward. A STEMI alert was called by Dr. Carballo who saw the patient who was evaluating the patient. On my arrival the patient was appearing quite distressed and crying. Interestingly, during the course of my interview I was able to calm her down enough to get some basic questions answered and as I did that she seem to be calm enough with no evidence of significant chest discomfort ongoing at that moment. The EKG was assessed and possible early repolarization changes were suggested. A repeat troponin was pending at the time that I initially saw the patient and eventually came back at 0.01. The patient's cardiac risk factors include her denying a history of hypertension although it was written in a prior hospitalization a question hypertension. She denied any hyperlipidemia, any diabetes. She stated she had significant family history of coronary artery disease with a sister at the age of 25 with stents placed and mother had some type of aortic procedure that we came to find out most likely was a TAVR procedure and she had a [id number] history of smoking. She denied any other significant medical problems that she took medications for, but in retrospect I am discussing with her that she mentioned that she had a stroke before. She was also evaluated back in January of this year for stroke in the emergency room and refused to have a complete workup performed. Back in 2015, she was hospitalized with a question of a stroke and was seen by Dr. Kaylin Reddy, neurologist who actually felt that she was having emotional distress with no clear evidence of a stroke, but she never stayed in at that point to get an MRI as well. CURRENT MEDICATIONS: At home none. REVIEW OF SYSTEMS: Unchanged from Dr. Carballo's admission notes. PHYSICAL EXAM: When I see her at the time of consult revealed blood pressure 120/70, pulse was in the 70s, afebrile, respirations were 18 to 20. Neck was supple. There was no increased JVP. Carotids had good upstroke but no bruits. Conjunctivae were pink. Sclerae clear. Lungs: Revealed no accessory muscle usage. There was good excursion. There were no active rales, rhonchi, or wheezes. Heart: Revealed no visible heaves. No palpable heaves or thrills. Normal S1, S2. I did not appreciate any significant S3, S4 gallop. No significant systolic or diastolic murmur was appreciated. Abdomen: Soft, nontender without definitive organomegaly. Extremities: Without clubbing, cyanosis, or significant pitting edema. The peripheral pulses were intact. The femoral pulse was noted without significant bruits. Neuro: The patient was alert, oriented, moves all extremities appropriate. Psychological: The patient with quite a labile affect appearing in extreme emotional distress at some point, otherwise able to talk well without appearing in distress. DIAGNOSTIC STUDIES/LAB DATA: When I saw her revealed initial white count 6,300 , hemoglobin and hematocrit 14.3 and 42 and platelet count 292,000. On repeat white count was 5600, hemoglobin and hematocrit 14.1 and 41, platelet count 282, 000. Initial BNP revealed sodium 136, potassium 3.8, chloride 104, bicarb 29, BUN and creatinine of 14 and 0.7 with glucose 108. Repeat BUN and creatinine was 17 and 0.7. Initial troponin was 0.01 and as mentioned on repeat was 0.01 again. BNP was 11, myoglobin done on the second troponin sample with a 11.4, total CPK on the second sample was 24 with an MB of 0.8. SGOT and SGPT were 13 and 11 respectively. Her bedside echo unofficially performed revealed contractility of all segments of the left ventricle with low normal EF of 50% to 55%. It should be noted the apex appear to contract and there was no evidence of a definitive focal wall motion abnormality, possibility of left ventricular hypertrophy mild in nature was raised. Review of the electrocardiogram: 1. From the emergency room normal sinus rhythm, nonspecific ST segment depression, V4 through V6 and II and a question of slight J-point elevation of 1 mm in V1. 2. Repeat EKG #2 with suggestion of the precordial leads being more rightward place, revealed mild J-point elevation in V1 through V3 but poor R-waves in those leads suggest misplacement of the leads. There was nonspecific ST segment depression again seen certainly in V5 and V6. 3. Repeat EKG #3 suggested minimal J-point elevation in V1 and V2 with nonspecific changes, again elsewhere as mentioned. OVERALL ASSESSMENT: Lakesha presents now with chest discomfort, with now 2 cardiac enzymes that appeared to be negative, and ability to calm her down well enough to the point where I am able to carry on discussion without her actively in distress. At this point in time, she was given a bolus of heparin 4000 units. I believe that it will be reasonable to move her to the unit until we have a better sense given her reported history of multiple stents in the past. I discussed with her at length her last cardiac catheterization which she states that it was performed in [place], [place], at hospital called [facility]. We will try to get the cardiac catheterization report and see if we can glean more information from this. In the meantime, Dr. Carballo will move her to the intensive care unit. We will cycle cardiac enzymes and see how she fares. Consideration for a formal echocardiogram in the morning and a stress test might be appropriate if cardiac enzymes remain negative. If the cardiac enzymes become positive at all, consideration for early cardiac catheterization intervention will be made. ADDENDUM: I was able to personally call the medical records department at [facility] in [place], [place], and they faxed a cardiac catheterization from 27/05. The report stated that the left anterior descending artery had a rather large diagonal branch vessel, free of obstruction, the left anterior descending artery had a smooth 40% to 50% narrowing in its mid portion. Circumflex had no disease and the right coronary artery had no disease and ejection fraction was 65%. There was no mention at all of any comments of stents placed and this was viewed as her most recent cardiac catheterization. I then personally tracked down a assurance manager insurance in the group that performed a cardiac catheterization on her. I spoke with Dr. George a assurance manager insurance, [place], [place], who explained to me they had no office records suggesting that she was followed on a routine basis. He did go into [facility] notes and reviewed an inventory accountant's note from a time when she presented for question of a stroke and at that point in time apparently they did an MRI and it was found to be negative with no evidence of a stroke. She was treated medically in general. On that evaluation, there was no mention of the patient having had stents placed. There was always a mention of the idea of coronary artery disease, whether or not that referred to the mild disease noted by catheterization in 2008, is unclear. [id number]/[facility] #: [id number] MTDD
[2017-05-21] MEDS ORDERED: LORazepam TAB(*) 1 MG PO ONE (15:59)
[2017-05-21] MEDS ORDERED: Atorvastatin* 80 MG TAB PO SCH (17:00)
--- NOTE | 2017-05-21 17:57 | RAD ---
HISTORY: Left hemiparesis COMPARISONS: CT of the brain dated February 01, 2017 TECHNIQUE: The following sequences were obtained of the head: Sagittal T1-weighted images, axial T2-weighted images, axial FLAIR images, axial susceptibility weighted images, axial T1-weighted images. Additionally, axial diffusion-weighted images were obtained with calculated apparent diffusion coefficients.. FINDINGS: HEMORRHAGE/INFARCT: There is no hemorrhage or acute infarct. MASSES/SHIFT: There is no mass or shift. EXTRA-AXIAL SPACES/MENINGES: There are no extra-axial fluid collections. SULCI AND VENTRICLES: The sulci and ventricles are normal in size and position for the patient's stated age. CEREBRUM: There are no focal parenchymal abnormalities. BRAINSTEM: There are no focal parenchymal abnormalities. CEREBELLUM: There are no focal parenchymal abnormalities. The cerebellar tonsils are normal in size and position. SELLA: The sella is normal. PINEAL: The pineal region is clear. CP ANGLE/TEMPORAL BONES: The labyrinthine structures are grossly normal. VESSELS: Normal flow-voids are noted within the visualized vertebral vasculature. DIFFUSION ABNORMALITIES: There are no diffusion abnormalities. PARANASAL SINUSES/MASTOIDS: The paranasal sinuses are clear. ORBITS: The orbits are unremarkable. BONES AND SOFT TISSUE: No bone or soft tissue abnormalities are noted. IMPRESSION: NORMAL MRI OF THE BRAIN.
[2017-05-21 20:18] LABS: Hematocrit 39 % (35-47); Hemoglobin 13.5 g/dl (12.0-16.0); Mean Corpuscular HGB Conc 35 g/dl (31-36); Mean Corpuscular Hemoglobin 29 pg (27-31); Mean Corpuscular Volume 84 fL (80-97); Mean Platelet Volume 7 um3 (7.4-10.4); Red Blood Count 4.65 10^6/ul (4.0-5.4); Red Cell Distribution Width 13 % (10.5-15)
[2017-05-22] MEDS: Nitroglycerin TAB 0.4 MG* 0.4 MG TAB SL PRN ×2 (01:20→01:29)
[2017-05-22 04:11] VITALS: BP 102/64
--- NOTE | 2017-05-22 10:31 | PN ---
Progress Note - Progress Note Date of Service: 05/22/17 Note: Time spent on discharge 45 minutes.
[2017-05-22] MEDS: Aspirin Low Dose CHEW TAB* 81 MG PO SCH (11:34)
--- NOTE | 2017-05-23 04:15 | DS ---
CC: Gerber Oro MD; Aakash Juarez DO * DISCHARGE SUMMARY: DATE OF ADMISSION: 05/20/17 DATE OF DISCHARGE: 05/22/17 HISTORY OF PRESENT ILLNESS: This is a 51-year-old woman who presented with chest pain. The history is detailed on my admission note. She was admitted to the telemetry unit initially, although she had further bout of severe chest pain. There was some degree of ST elevation in V1, 2 and 3. There was concern that she might be having STEMI. Dr. Marmolejo evaluated her. He did a bedside echo, there was no wall motion abnormality at all. Left ventricular function seemed good. Serial troponins as well as CK-MB and myoglobin were all normal. Her chest pain subsided. She underwent a treadmill stress test the next day, which showed small area of partially reversible septal ischemia. As the area was small and the clinical significance was uncertain, she was going to be followed as an outpatient. I did start her on a statin. I am not sure why she had never been on a statin in the past. I note her LDL on 02/05/17 was 138. Her HDL was 56.9, triglycerides 149. I did not repeat them on this admission. There is no reason for there to be any significant change in the past 3 months. FINAL DIAGNOSES: 1. History of non-obstructive coronary artery disease based on cath from 2008. 2. Chronic obstructive pulmonary disease. 3. Posttraumatic stress disorder. DISCHARGE MEDICATIONS: 1. Atorvastatin 80 mg daily at 5 p.m. 2. Nitroglycerin 0.4 mg sublingual every 5 minutes p.r.n. 3. Aspirin 81 mg daily. [id number]/[facility] #: [id number] MTDD
== END 2017-05-22 11:26 | disposition home or self-care (01) ==
LOC: ED 10:41 → MEDTELE 15:18 → ICU 18:05 → MEDTELE 05-21 19:40
PROVIDERS: ADMIT Internal Medicine; ATTEND Internal Medicine
DX: R07.9 Chest pain, unspecified (principal); R11.2 Nausea with vomiting, unspecified; R06.02 Shortness of breath; Z87.891 Personal history of nicotine dependence; F43.10 Post-traumatic stress disorder, unspecified; I25.2 Old myocardial infarction; Z95.5 Presence of coronary angioplasty implant and graft; R00.1 Bradycardia, unspecified; I51.7 Cardiomegaly
CPT/HCPCS: 36415; 70551; 71020; 78452; 80053; 82550; 82553; 83721; 83874; 83880; 84484; 84520; 85025; 85027; 85610; 85730; 86850; 86900; 86901; 87641; 93005; 93017; 93306; 93308; 96374; 96375; 96376; 99284; A9270-GY; A9502; G0378; J1644; J2001; J2250; J2270; J2405; J2785; J3010

== ENCOUNTER 2017-07-11 00:53 | Emergency (ER) | payer MEDICARE, OTHER ==
[2017-07-11 01:02] VITALS: BP 129/81
== END 2017-07-11 01:54 | disposition left against medical advice (07) ==
LOC: EEVIPCON 00:53 → ED 00:53
DX: R05 Cough (principal); Z53.21 Procedure and treatment not carried out due to patient leaving prior to being seen by health care provider

== ENCOUNTER 2017-09-03 11:36 | Emergency (ER) | payer MEDICARE, OTHER ==
[2017-09-03] MEDS ORDERED: Ketorolac INJ* 60 MG/2 ML VIAL IM ONE (13:06)
--- NOTE | 2017-09-03 13:06 | RAD ---
INDICATION: Lateral foot and ankle pain 3 weeks after injury COMPARISON: None. TECHNIQUE: 3 views of the right ankle and 3 views of the right foot were obtained. FINDINGS: The bones are normal alignment. Joint spaces appear maintained. No fracture is seen. IMPRESSION: NO RADIOGRAPHICALLY APPARENT FRACTURE OR DISLOCATION INVOLVING THE RIGHT FOOT OR ANKLE. If the patient's symptoms persist, follow-up imaging is recommended.
[2017-09-03 13:25] VITALS: BP 155/69
--- NOTE | 2017-09-03 18:26 | ED ---
Jose Diaz Angela, scribed for Ashok Ramirez MD on 09/03/17 at 1227 . Lower Extremity - HPI Summary HPI Summary: This pt is a 51 y/o female [facility] [place] [facility] [place]/o right foot pain x2 days s/p fall. Pt reports she fell down the stairs 2 days ago. She states she has difficulty walking secondary to pain. Pt notes she is able to bear weight on right foot but with pain. She currently rates her pain 8/10 in severity. She denies any knee pain, leg pain, hip pain, or any other injury. PMHx includes AK, HTN, CAD, stents x8. - History of Current Complaint Chief Complaint: EDExtremityLower Stated Complaint: RIGHT LEG PAIN Time Seen by Provider: 09/03/17 12:18 Hx Obtained From: Patient Hx Last Menstrual Period: n/a Mechanism Of Injury: Fall From A Standing Position Onset of Pain: Immediate Onset/Duration: Days Severity Currently: Severe Pain Intensity: 7 Pain Scale Used: 0-10 Numeric Timing: Lasting Days Location: Is Discrete @ - right ankle Associated Signs And Symptoms: Negative: Knee Pain Aggravating Factor(s): Ambulation, Movement - Allergies/Home Medications Allergies/Adverse Reactions: Allergies Allergy/AdvReac Type Severity Reaction Status Date / Time Codeine Allergy Anaphylatic Verified 09/03/17 11:48 Shock Morphine Allergy Anaphylatic Verified 09/03/17 11:48 Shock Penicillins [PCN] Allergy Anaphylatic Verified 09/03/17 11:48 Shock PMH/Surg Hx/FS Hx/Imm Hx Endocrine/Hematology History: Denies: Hx Diabetes Cardiovascular History: Reports: Hx Angina, Hx Cardiomegaly - Post-partem cardiomyopathy;, Hx Coronary Artery Disease, Hx Hypercholesterolemia, Hx Hypertension, Hx Myocardial Infarction, Other Cardiovascular Problems/Disorders - stents x8, ventrical disease, post partem cardiomyopathy Denies: Hx Congestive Heart Failure, Hx Pacemaker/ICD, Hx Valvular Heart Disease Respiratory History: Denies: Hx Asthma, Hx Chronic Obstructive Pulmonary Disease (COPD) GI History: Reports: Hx Gall Bladder Disease - Removed in 2006 Sensory History: Denies: Hx Contacts or Glasses, Hx Hearing Aid Opthamlomology History: Denies: Hx Contacts or Glasses Psychiatric History: Reports: Hx Post Traumatic Stress Disorder - Severe PTSD Denies: Hx Panic Disorder - Cancer History Cancer Type, Location and Year: Throat CA, ovarian cancer Hx Radiation Therapy: Yes - 2013; she states she walked away from radiation therapy - Surgical History Surgery Procedure, Year, and Place: Hysterectomy, Lt wrist surgery with orif, right calcaneal surgery, tonsillectomy, appendectomy, laproscopic cholecystectomy, ovarian cancer removal. multiple heart cath and stentings - ( [facility], [facility]. [facility] Hx Anesthesia Reactions: No - Immunization History Immunizations Up to Date: Yes Infectious Disease History: No Infectious Disease History: Denies: Traveled Outside the [place] in Last 30 Days - Family History Known Family History: Positive: Unknown, Cardiac Disease, Other - cancer - Social History Alcohol Use: None Alcohol Amount: unknowm Hx Substance Use: No Substance Use Type: Reports: None Hx Tobacco Use: Yes Smoking Status (MU): Current Some Day Smoker Type: Cigarettes Amount Used/How Often: 4-10 daily Length of Time of Smoking/Using Tobacco: 10 years Have You Smoked in the Last Year: Yes Review of Systems Constitutional: Other - difficulty ambulating secondary to pain Negative: Fever, Chills Eyes: Negative ENT: Negative Cardiovascular: Negative Respiratory: Negative Gastrointestinal: Negative Musculoskeletal: Other - right foot pain Skin: Negative Neurological: Negative All Other Systems Reviewed And Are Negative: Yes Physical Exam - Summary Physical Exam Summary: VITAL SIGNS: Reviewed. GENERAL: Patient is a well-developed and nourished female who is lying comfortable in the stretcher. Patient is not in any acute respiratory distress. HEAD AND FACE: No signs of trauma. No ecchymosis, hematomas or skull depressions. No sinus tenderness. EYES: PERRLA, EOMI x 2, No injected conjunctiva, no nystagmus. EARS: Hearing grossly intact. Ear canals and tympanic membranes are within normal limits. MOUTH: Oropharynx within normal limits. NECK: Supple, trachea is midline, no adenopathy, no JVD, no carotid bruit, no c- spine tenderness, neck with full ROM. CHEST: Symmetric, no tenderness at palpation LUNGS: Clear to auscultation bilaterally. No wheezing or crackles. CVS: Regular rate and rhythm, S1 and S2 present, no murmurs or gallops appreciated. ABDOMEN: Soft, non-tender. No signs of distention. No rebound no guarding, and no masses palpated. Bowel sounds are normal. EXTREMITIES: No edema, no cyanosis or clubbing. RLE: There is tenderness in the right lateral malleolus. There is no swelling, no deformity and no ecchymosis. Decreased ROM on right lower extremity. NEURO: Alert and oriented x 3. No acute neurological deficits. Speech is normal and follows commands. SKIN: Dry and warm Triage Information Reviewed: Yes Vital Signs On Initial Exam: Initial Vitals Temp Pulse Resp BP Pulse Ox 97.2 F 88 16 159/85 100 09/03/17 11:49 09/03/17 11:49 09/03/17 11:49 09/03/17 11:49 09/03/17 11:49 Vital Signs Reviewed: Yes - Mehul Coma Scale Coma Scale Total: 15 Diagnostics - Vital Signs Vital Signs Temp Pulse Resp BP Pulse Ox 09/03/17 11:49 97.2 F 88 16 159/85 100 - Laboratory Lab Statement: Any lab studies that have been ordered have been reviewed, and results considered in the medical decision making process. - Radiology Right ankle XR Xray Interpretation: No Acute Changes - IMPRESSION: No radiographically apparent fracture or dislocation involving the right foot or ankle. If the patient's symptoms persist, follow-up imaging is recommended. ED physician has reviewed this radiology report and agrees. Radiology Interpretation Completed By: Radiologist Right foot XR Xray Interpretation: No Acute Changes - IMPRESSION: No radiographically apparent fracture or dislocation involving the right foot or ankle. If the patient's symptoms persist, follow-up imaging is recommended. ED physician has reviewed this radiology report and agrees. Radiology Interpretation Completed By: Radiologist Lower Extremity Course/Dx - Course Assessment/Plan: This pt is a 51 y/o female [facility] [place] [facility] [place]/o right foot pain x2 days s/p fall. Pt reports she fell down the stairs 2 days ago. She states she has difficulty walking secondary to pain. Pt notes she is able to bear weight on right foot but with pain. She currently rates her pain 8/10 in severity. She denies any knee pain, leg pain, hip pain, or any other injury. PMHx includes AK, HTN, CAD, stents x8. Right foot and right ankle XRs show no radiographically apparent fracture or dislocation involving the right foot or ankle. If the patient's symptoms persist, follow-up imaging is recommended. There is no fracture or dislocation. Pt was given Toradol for the pain in the ED. She was placed in a gel splint and was discharged home. The pt ambulated out of the Emergency Department. Pt is hemodynamically stable, alert and oriented x3. - Diagnoses Differential Diagnosis/HQI/PQRI: Positive: Bursitis, Fracture (Closed), Sprain, Strain Provider Diagnoses: Ankle sprain Discharge - Discharge Plan Condition: Stable Disposition: HOME Patient Education Materials: Ankle Sprain (ED) Referrals: [facility] [place] [facility]YSICIAN REFERRAL [Outside] No Primary Care Phys,NOPCP [Primary Care Provider] - Additional Instructions: Please follow up with your primary care provider. If you don't have one, establish a primary by calling the [facility] Physician Referral number. RETURN TO THE ED FOR ANY WORSENING OR NEW SYMPTOMS. The documentation as recorded by the Jose friend Angela accurately reflects the service I personally performed and the decisions made by James vegas Walter, MD.
== END 2017-09-03 13:35 | disposition home or self-care (01) ==
LOC: ED 11:36
DX: S93.401A Sprain of unspecified ligament of right ankle, initial encounter (principal); M79.671 Pain in right foot; Z72.0 Tobacco use; W10.9XXA Fall (on) (from) unspecified stairs and steps, initial encounter; Y93.9 Activity, unspecified; Y92.9 Unspecified place or not applicable
CPT/HCPCS: 99281; J1885

== ENCOUNTER 2017-09-11 08:43 | Emergency (ER) | payer MEDICARE, OTHER ==
[2017-09-11] MEDS ORDERED: Ondansetron ODT TAB* 4 MG PO ONE (10:17)
[2017-09-11] MEDS ORDERED: Acetaminophen TAB* 325 MG PO ONE (10:37)
[2017-09-11 10:42] LABS: Hematocrit 46 % (35-47); Hemoglobin 15.8 g/dl (12.0-16.0); Mean Corpuscular HGB Conc 34 g/dl (31-36); Mean Corpuscular Hemoglobin 29 pg (27-31); Mean Corpuscular Volume 85 fL (80-97); Mean Platelet Volume 7 um3 (7.4-10.4); Red Blood Count 5.47 10^6/ul (4.0-5.4); Red Cell Distribution Width 14 % (10.5-15); White Blood Count 5.3 10^3/ul (3.5-10.8)
--- NOTE | 2017-09-11 10:43 | ED ---
Influenza-Like Illness - HPI Summary HPI Summary: Pt here w/ flu-like sx x 3 days. Started as vomiting followed by diarrhea. She has not vomited since last night but diarrhea persists and ab is sore (no lindsay pain). Has developed URI sx today - nasal congestion, ST, cough (dry, intermittent), low grade fever + chills. Nausea persists today. Denies chest pain, SOB, difficulty breathing other than from nasal congestion. Has not tried anything prior to arrival. Sick contacts - son w/ brandon currently. - History of Current Complaint Chief Complaint: EDNauseaVomitDiarrh Time Seen by Provider: 09/11/17 09:29 Hx Obtained From: Patient - Allergy/Home Medications Allergies/Adverse Reactions: Allergies Allergy/AdvReac Type Severity Reaction Status Date / Time Codeine Allergy Anaphylatic Verified 09/11/17 08:50 Shock Morphine Allergy Anaphylatic Verified 09/11/17 08:50 Shock Penicillins [PCN] Allergy Anaphylatic Verified 09/11/17 08:50 Shock PMH/Surg Hx/FS Hx/Imm Hx Previously Healthy: Yes Endocrine/Hematology History: Denies: Hx Diabetes Cardiovascular History: Reports: Hx Angina, Hx Cardiomegaly - Post-partem cardiomyopathy;, Hx Coronary Artery Disease, Hx Hypercholesterolemia, Hx Hypertension, Hx Myocardial Infarction - in her 20's d/t virus 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 , Other Cardiovascular Problems/Disorders - stents x8, ventrical disease, post partem cardiomyopathy Denies: Hx Congestive Heart Failure, Hx Pacemaker/ICD, Hx Valvular Heart Disease Respiratory History: Denies: Hx Asthma, Hx Chronic Obstructive Pulmonary Disease (COPD), Hx Pneumonia, Hx Seasonal Allergies GI History: Reports: Hx Gall Bladder Disease - Removed in 2006 Sensory History: Denies: Hx Contacts or Glasses, Hx Hearing Aid Opthamlomology History: Denies: Hx Contacts or Glasses Psychiatric History: Reports: Hx Post Traumatic Stress Disorder - Severe PTSD Denies: Hx Panic Disorder - Cancer History Cancer Type, Location and Year: Throat CA, ovarian cancer Hx Radiation Therapy: Yes - 2013; she states she walked away from radiation therapy - Surgical History Surgery Procedure, Year, and Place: Hysterectomy, Lt wrist surgery with orif, right calcaneal surgery, tonsillectomy, appendectomy, laproscopic cholecystectomy, ovarian cancer removal. multiple heart cath and stentings - ( [facility] [place] [facility], [facility]. [facility], [facility] Hx Anesthesia Reactions: No Infectious Disease History: No Infectious Disease History: Denies: Traveled Outside the [place] in Last 30 Days - Family History Known Family History: Positive: Cardiac Disease, Other - cancer - Social History Lives: With Family Alcohol Use: None Hx Substance Use: No Substance Use Type: Reports: None Hx Tobacco Use: Yes Smoking Status (MU): Current Some Day Smoker Type: Cigarettes Amount Used/How Often: 4-10 daily Length of Time of Smoking/Using Tobacco: 10 years Have You Smoked in the Last Year: Yes Review of Systems Positive: Fever, Chills, Fatigue - generalized - feels wiped out - hasn't eaten in past few days as everything goes through her Eyes: Negative Negative: Photophobia, Blurred Vision, Diplopia, Drainage, Erythema Positive: Sore Throat, Nasal Discharge. Negative: Epistaxis, Dental Pain, Ear Ache Cardiovascular: Negative Negative: Palpitations, Chest Pain Positive: Cough - dry. Negative: Shortness Of Breath Positive: Vomiting, Diarrhea, Nausea. Negative: Abdominal Pain Positive: no symptoms reported Positive: Arthralgia - generalized, Myalgia Skin: Negative Neurological: Negative Negative: Headache, Weakness, Paresthesia, Numbness, Syncope, Slurred Speech Psychological: Normal All Other Systems Reviewed And Are Negative: Yes Physical Exam Triage Information Reviewed: Yes Vital Signs On Initial Exam: Initial Vitals Temp Pulse Resp BP Pulse Ox 97.9 F 95 17 154/92 98 09/11/17 08:45 09/11/17 08:45 09/11/17 08:45 09/11/17 08:45 09/11/17 08:45 Vital Signs Reviewed: Yes Appearance: Positive: Well-Nourished, Ill-Appearing - appears mildly fatigued, bundled up under mulitple blankets, nasal congestion, resting w/ lights out, Pain Distress - mild Skin: Positive: Warm, Dry - no rash observed Head/Face: Positive: Normal Head/Face Inspection Eyes: Positive: Normal, EOMI, Conjunctiva Clear - anicteric sclera ENT: Positive: Normal ENT inspection, Hearing grossly normal, Pharyngeal erythema - cobblestoning - no tonsils visualized (pt sp tonsilectomy), Nasal congestion, Nasal drainage - clear, TMs normal. Negative: Tonsillar swelling, Tonsillar exudate Neck: Positive: Supple, Nontender, No Lymphadenopathy Respiratory/Lung Sounds: Positive: Clear to Auscultation, Breath Sounds Present. Negative: Rales, Rhonchi, Stridor, Tracheal Deviation, Wheezes Cardiovascular: Positive: Normal, RRR, S1, S2. Negative: Leg Edema Left, Leg Edema Right Abdomen Description: Positive: Nontender, No Organomegaly, Soft Bowel Sounds: Positive: Present Musculoskeletal: Positive: Normal, Strength/ROM Intact Neurological: Positive: Normal, Sensory/Motor Intact, Alert, Oriented to Person Place, Time, CN Intact II-III Psychiatric: Positive: Normal - [place] Coma Scale Coma Scale Total: 14 Diagnostics - Vital Signs Vital Signs Temp Pulse Resp BP Pulse Ox 09/11/17 08:45 97.9 F 95 17 154/92 98 - Laboratory Lab Results: Lab Results 09/11/17 09/11/17 Range/Units 09:59 09:59 Influenza A (Rapid) Negative (Negative) Influenza B (Rapid) Negative (Negative) Group A Strep Rapid Negative (Negative) Result Diagrams: 09/11/17 10:30 Lab Statement: Any lab studies that have been ordered have been reviewed, and results considered in the medical decision making process. Discharge - Discharge Plan Referrals: No Primary Care Phys,NOPCP [Primary Care Provider] -
[2017-09-11 11:00] LABS: Albumin 4.5 g/dL (3.2-5.2); BUN/Creatinine Ratio 15.7 (8-20); Calcium 9.8 mg/dL (8.6-10.3); EGFR African American 92.5 (>60); EGFR Non-African American 71.9 (>60); Globulin 2.9 g/dL (2-4); Magnesium 2.3 mg/dL (1.9-2.7); Potassium 3.8 mmol/L (3.5-5.0); Total Bilirubin 0.6 mg/dL (0.2-1.0); Total Protein 7.4 g/dL (6.4-8.9)
[2017-09-11 11:15] LABS: Manual Entry Verification GRE0060; Mono Internal Control QC Line Present
--- NOTE | 2017-09-11 11:40 | RAD ---
INDICATION: Cough. Smoker. COMPARISON: May 20, 2017 TECHNIQUE: PA and lateral dual-energy views were obtained. FINDINGS: Bones/Soft Tissues: There are no acute bony findings. Cardiomediastinal: The cardiomediastinal silhouette is normal. Lungs: There are no infiltrates. Pleura: There are no pleural effusions. Other: None IMPRESSION: NO ACTIVE DISEASE.
[2017-09-11 12:18] VITALS: BP 150/84
== END 2017-09-11 12:17 | disposition home or self-care (01) ==
LOC: ED 08:43
DX: R05 Cough (principal); R11.2 Nausea with vomiting, unspecified; R19.7 Diarrhea, unspecified; Z72.0 Tobacco use
CPT/HCPCS: 36415; 71020; 80053; 83735; 85025; 86308; 87502; 87651; 99282; A9270-GY

== ENCOUNTER 2017-12-02 11:13 | Observation (INO) | payer MEDICARE ==
--- NOTE | 2017-12-02 12:21 | RAD ---
INDICATION: Chest pain. COMPARISON: Comparison is made with prior study from September 11, 2017. TECHNIQUE: Dual-energy PA and lateral views of the chest were obtained. FINDINGS: The heart is within normal limits in size. Mediastinal and hilar contours appear within normal limits. The lungs are clear. No pleural effusion is present. IMPRESSION: NO EVIDENCE FOR ACTIVE CARDIOPULMONARY DISEASE.
[2017-12-02 13:26] LABS: INR 0.86 (0.77-1.02)
[2017-12-02] MEDS ORDERED: Ondansetron ODT TAB* 4 MG PO ONE (13:47)
[2017-12-02] MEDS ORDERED: Ondansetron ODT TAB* 4 MG ONE (13:49)
[2017-12-02] MEDS ORDERED: Nitroglycerin TAB 0.4 MG* 0.4 MG TAB SL ONE (13:52)
[2017-12-02 13:54] LABS: EGFR Non-African American 56.5 (>60)
[2017-12-02] MEDS ORDERED: LORazepam INJ* 2 MG/ML 1 ML VIAL IV ONE (15:18)
[2017-12-02] MEDS ORDERED: LORazepam TAB(*) 1 MG PO ONE (15:55)
[2017-12-02] MEDS ORDERED: Morphine INJ* 2 MG/ML 1 ML CARPUJECT IV PRN ×2 (16:10→18:56)
[2017-12-02] MEDS ORDERED: Acetaminophen TAB* 325 MG PO PRN (16:10)
[2017-12-02 18:28] LABS: ABS Basophils 0 10^3/ul (0-0.2); ABS Eosinophils 0.1 10^3/ul (0-0.6); ABS Lymphocytes 1.4 10^3/ul (1.0-4.8); ABS Monocytes 0.3 10^3/ul (0-0.8); ABS Neutrophils 3.4 10^3/ul (1.5-7.7); ABS Nucleated RBC 0 10^3/ul; Eosinophil % 2.4 % (0-6); Hematocrit 40 % (35-47); Hemoglobin 13.6 g/dl (12.0-16.0); Lymphocyte % 26.8 % (25-47); Mean Corpuscular HGB Conc 34 g/dl (31-36); Mean Corpuscular Hemoglobin 29 pg (27-31); Mean Corpuscular Volume 84 fL (80-97); Mean Platelet Volume 7 um3 (7.4-10.4); Nucleated Red Blood Cells % 0.2; Platelet Count 290 10^3/ul (150-450); Red Blood Count 4.68 10^6/ul (4.0-5.4); Red Cell Distribution Width 14 % (10.5-15); White Blood Count 5.3 10^3/ul (3.5-10.8)
--- NOTE | 2017-12-02 18:51 | ADMNOTE ---
Subjective Date of Service: 12/02/17 Interval History: ADMISSION HISTORY AND PHYSICAL EXAM: Allergies Allergy/AdvReac Type Severity Reaction Status Date / Time codeine Allergy Anaphylatic Verified 12/02/17 16:10 Shock Penicillins Allergy Anaphylatic Verified 12/02/17 16:10 Shock Home Medications Medication Instructions Recorded Confirmed Type Diazepam TAB(*) [Valium TAB(*)] 1 mg PO DAILY PRN 12/02/17 12/02/17 History Levothyroxine TAB* [Synthroid TAB*] 50 mcg PO DAILY 12/02/17 12/02/17 History HPI: The patient was in her usual state of health until 3 AM today. She awoke with palpitations. When she got out of bed she passed out briefly. The plapitations lasted about a minute. Later this morning she was sitting on her couch paying bills. She developed palpitations again, and passed out, her head falling on the table in front of her. These palpitations also lasted about a minute. BOth times she had a heaviness on her anterior chest. She thinks she had this happen to her one previous time but did not seek medical attention then. She does no regular exercise. She states she gets SOB with mild exertion. Family History: Findings - Mother had lung ca, GM had breast ca, father had parkinson's and CAD. Social History: Findings - Quit smoking 3 yrs ago. No alcohol abuse. Light caffeine user. Son Man Can in [facility] is her SDM. L hand and L foot have hardware. Past Medical History: Findings - [place], stents. L Ovarian ca, PTSD, ? TAVR in [place]. Review of Systems - Review of Systems Constitutional Symptoms: Negative: Weight Gain, Weight Loss, Weakness, Fatigue, Fever, Night Sweats, Unexplained Falls, Other Dermatology: Positive: Normal HEENT: Positive: Normal Eyes: Positive: Normal Thyroid: Positive: Goiter, Primary Hypothyroidism - Pt ran out of levothyroxine 1.5 months ago. Pulmonary: Positive: Exercise Intolerance Cardiology: Positive: Chest Pain, Palpitations Gastroenterology: Positive: Normal Musculoskeletal: Positive: Joint Pain - both hands Endocrinology: Positive: Thyroid Problems Hematologic/Lymphatic: Negative: Anemia, Easy Brusing, Hx Leukemia, Hx Lymphoma, Use of Anticoagulant, Use of Antiplatelet Drugs, Other Neurology: Positive: Normal Psychiatry: Positive: Normal Allergic/Immunologic: Positive: Hx Anaphylaxis - ?? history. Objective Active Medications: Acetaminophen (Tylenol Tab*) 650 mg PO Q4H PRN PRN Reason: FEVER/PAIN Aspirin (Aspirin Tab*) 325 mg PO DAILY [facility] Diazepam (Valium Tab(*)) 1.25 mg PO DAILY PRN PRN Reason: ANXIETY Heparin Sodium (Porcine) (Heparin Vial(*)) 5,000 units SUBCUT Q8HR [facility] Levothyroxine Sodium (Synthroid Tab*) 50 mcg PO 0600 [place] Morphine Sulfate (Morphine Inj (Syringe)*) 1 mg IV Q4H PRN PRN Reason: PAIN Vital Signs - 8 hr 12/02/17 12/02/17 12/02/17 16:00 16:05 17:00 Pulse Rate 69 73 Respiratory 18 16 15 Rate Blood Pressure (mmHg) O2 Sat by Pulse 96 96 Oximetry 12/02/17 12/02/17 12/02/17 18:00 18:25 18:30 Pulse Rate 71 70 71 Respiratory 13 16 13 Rate Blood Pressure 112/69 121/63 (mmHg) O2 Sat by Pulse 96 95 96 Oximetry Oxygen Devices in Use Now: None Appearance: Alert, partly up on ED stretcher. In fair spirits. Looks comfortable. Eyes: No Scleral Icterus Ears/Nose/Mouth/Throat: Clear Oropharnyx, Mucous Membranes Moist Neck: NL Appearance and Movements; NL JVP, - - moderate symmetric goiter Respiratory: Symmetrical Chest Expansion and Respiratory Effort, Clear to Auscultation, Clear to Percussion Cardiovascular: NL Sounds; No Murmurs; No JVD, RRR, No Edema, - Abdominal: NL Sounds; No Tenderness; No Distention, No Hepatosplenomegaly, - Extremities: No Clubbing, Cyanosis, - - Tr edema both hands Skin: No Rash or Ulcers, No Nodules or Sclerosis, - Neurological: Alert and Oriented x 3, NL Sensation Result Diagrams: 12/02/17 18:15 12/02/17 13:00 Assess/Plan/Problems-Billing Assessment: - Patient Problems (1) Syncope Current Visit: Yes Status: Acute Code(s): R55 - SYNCOPE AND COLLAPSE SNOMED Code(s): 874655483 Comment: Possible arrhythmia, possible ischemia. Second troponin pending. Chemical stress test 12/03, echo. Tele. Consider loop recorder implantation shortly after discharge. Start high-dose statin--not clear why she didn't t continue this after her last discharge. (2) Goiter Current Visit: Yes Status: Acute Code(s): E04.9 - NONTOXIC GOITER, UNSPECIFIED SNOMED Code(s): 4359798 Comment: add on TSH pending. Levothyroxine ordered. Consider endocrinology referral on discharge.
[2017-12-02] MEDS ORDERED: Morphine INJ* 2 MG/ML 1 ML CARPUJECT ONE (18:57)
[2017-12-02] MEDS: Diazepam TAB(*) 5 MG PO PRN (20:08)
[2017-12-02] MEDS: Atorvastatin* 80 MG TAB PO ONE ×2 (20:08→21:05)
[2017-12-02] MEDS ORDERED: LORazepam INJ* 2 MG/ML 1 ML VIAL IV PUSH ONE (20:16)
[2017-12-02] MEDS: Morphine INJ* 2 MG/ML 1 ML CARPUJECT IV PRN (20:56)
[2017-12-02] MEDS: Aspirin TAB* 325 MG PO SCH (21:04)
[2017-12-03] MEDS: Heparin VIAL(*) 5000 UNITS/ML VIAL (FIVE THOUSAND) SUBCUT SCH ×3 (00:06→16:28)
[2017-12-03] MEDS: Diazepam TAB(*) 5 MG PO PRN (01:48)
[2017-12-03] MEDS: Morphine INJ* 2 MG/ML 1 ML CARPUJECT IV PRN ×3 (01:53→10:14)
[2017-12-03] MEDS ORDERED: Levothyroxine TAB* 50 MCG TAB PO SCH (06:00)
[2017-12-03] MEDS: Aspirin TAB* 325 MG PO SCH (08:00)
--- NOTE | 2017-12-03 10:10 | ECHO ---
Patient: YOSELIN JOSEPH [facility] Rec#: [id number] : 1965 Date: 12/03/2017 Age: 52y Height: 162.56 cm / 64.0 in Weight: 59.42 kg / 131.0 lbs Sex: F BSA: 1.63 Room#: 440 Admit Date#: 12/02/2017 Type: Inpatient Referring: Sid Carballo MD Reading: Homero Mckeon MD Speech Correction Assistant: [facility] Tr[facility]ch[facility] Indication: Syncope, palpitations BP: 98/53 HR: 70 Rhythm: NSR Findings History: CAD with ND and PCI, HTN, TIAs, PTSD, smoker, ovarian cancer, cardiomyopathy. Technical Comments: The study quality is fair. The study is technically limited due to the patient's smoking history. Completed at 0950. Left Ventricle: The left ventricular chamber size is normal. Mild concentric left ventricular hypertrophy is observed. Global left ventricular wall motion and contractility are within normal limits. There is normal left ventricular systolic function. The estimated ejection fraction is 55-60%. Normal left ventricular diastolic filling is observed. Left Atrium: The left atrial chamber size is normal. Right Ventricle: The right ventricular cavity size is normal. The right ventricular global systolic function is normal. Right Atrium: The right atrial cavity size is normal. Aortic Valve: The aortic valve is trileaflet. The aortic valve leaflets are mildly thickened. There is no evidence of aortic regurgitation. There is no evidence of aortic stenosis. Mitral Valve: The mitral valve leaflets are mildly thickened. There is trace to mild mitral regurgitation. There is no evidence of mitral stenosis. Tricuspid Valve: The tricuspid valve leaflets are normal. There is a physiologic tricuspid regurgitation. The right ventricular systolic pressure is estimated at 16 mmHg. No pulmonary hypertension is noted. There is no tricuspid stenosis. Pulmonic Valve: The pulmonic valve appears normal. There is a trace pulmonic regurgitation. There is no pulmonic stenosis. Pericardium: There is no significant pericardial effusion. Aorta: There is no dilatation of the ascending aorta. There is no dilatation of the aortic arch. The aortic root is normal in size. Pulmonary Artery: The main pulmonary artery is not well visualized. Venous: The inferior vena cava appears normal in size. There is a greater than 50% respiratory change in the inferior vena cava dimension. Summary: There are no significant changes when compared to the previous study done on 05/21/17 Conclusions Global left ventricular wall motion and contractility are within normal limits. There is normal left ventricular systolic function. The estimated ejection fraction is 55-60%. The right ventricular global systolic function is normal. There is no evidence of aortic stenosis. There is trace to mild mitral regurgitation. There is a physiologic tricuspid regurgitation. No pulmonary hypertension is noted. There is no significant pericardial effusion. There are no significant changes when compared to the previous study done on 05/21/17 Measurements Name Value Normal Range RVIDd (AP) 2D 2.9 cm (0.9 - 2.6) RVDdMajor (2D) 4 cm (2.2 - 4.4) RAd ISD 4CH 4.9 cm (3.4 - 4.9) RA (A4C)W 3.9 cm (2.9 - 4.6) IVSd (2D) 1.1 cm (0.6 - 1) LVPWd (2D) 1.1 cm (0.6 - 1) LVIDd (2D) 4.5 cm (3.6 - 5.4) LVIDs (2D) 3 cm - LV FS (2D) 32 % (25 - 45) Aortic Annulus 2.1 cm (1.4 - 2.6) Ao root diameter (2D) 3 cm (2.1 - 3.5) Ascending Ao 3.1 cm (2.1 - 3.4) Aortic arch 2.6 cm (1.8 - 3.4) LA dimension (AP) 2D 3.3 cm (2.3 - 3.8) LAd ISD 4CH 4.5 cm (2.9 - 5.3) LA ISD 4CH W 3.8 cm (2.5 - 4.5) Name Value Normal Range LA ESV SP 4CH (A/L) 31 ml - LA ESV SP 2CH (A/L) 58 ml - LA ESV BP (A/L) 45 ml - LA ESV BP (A/L) index 27 ml/m2 - LA ESV SP 4CH (MOD) 29 ml - LA ESV SP 2CH (MOD) 49 ml - Name Value Normal Range MV E-wave Vmax 0.7 m/sec - MV deceleration time 208.3 msec - MV A-wave Vmax 0.55 m/sec - MV E:A ratio 1.25 ratio - LV septal e' Vmax 0.06 m/sec - LV lateral e' Vmax 0.07 m/sec - LV E:e' septal ratio 11.67 ratio - LV E:e' lateral ratio 10 ratio - Name Value Normal Range AV Vmax 1.05 m/sec - AV VTI 19.94 cm - AV peak gradient 4.44 mmHg - AV mean gradient 2.09 mmHg - LVOT Vmax 0.77 m/sec - LVOT VTI 15.56 cm - LVOT peak gradient 2.35 mmHg - LVOT mean gradient 1.16 mmHg - MIESHA Vmax 0.88 m/sec - Name Value Normal Range TR Vmax 1.8 m/sec - TR peak gradient 13 mmHg - RAP 3 mmHg - RVSP 16 mmHg - IVC diameter 1.4 cm - Name Value Normal Range PV Vmax 0.77 m/sec - PV peak gradient 2.39 mmHg -
[2017-12-03 13:23] LABS: EGFR Non-African American 67.9 (>60)
[2017-12-03] MEDS ORDERED: Regadenoson* 0.4 MG/5 ML SYRINGE ONE (14:01)
--- NOTE | 2017-12-03 14:42 | ED ---
Jose Manuel Diaz Julia, scribed for Jorge Orellana MD on 12/02/17 at 1221 . HPI Chest Pain - HPI Summary HPI Summary: This patient is a 52 year old F presenting to [facility] with a chief complaint of sudden palpitations and chest pain that woke her at 3:48 this morning lasting for 3-4 minutes. She reports diaphoresis and states it felt like she just got done with intense exercise upon waking. She reports consistent chest pain radiating to her left jaw and shoulder and SOB since her onset of symptoms this morning. She describes her chest pain as someones sitting on me. She took two baby Aspirin at 4:00 this morning. She has a hx of SC at age 23 and cardiomyopathy. 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 Marmolejo. - History of Current Complaint Chief Complaint: EDChestPainROMI Time Seen by Provider: 12/02/17 11:18 Hx Obtained From: Patient Hx Last Menstrual Period: n/a Onset/Duration: Started Hours Ago, Still Present Time of Onset: 03:45 Timing: Constant - chest pain, Lasting Minutes - palpitations Pain Intensity: 0 Chest Pain Location: Mid Sternal Chest Pain Radiates: Yes Chest Pain Radiates To:: Shoulder - L, Jaw - L Character: Pressure/Squeezing - someone sitting on chest Associated Signs and Symptoms: Positive: Chest Pain, Shortness of Breath, Diaphoresis, Palpitations Related History: Similar Episode/Dx as: - SC, and cardiomyopathy - Additional Pertinent History Primary Care Physician: [id number] - Allergy/Home Medications Allergies/Adverse Reactions: Allergies Allergy/AdvReac Type Severity Reaction Status Date / Time codeine Allergy Anaphylatic Verified 12/02/17 16:10 Shock Penicillins Allergy Anaphylatic Verified 12/02/17 16:10 Shock Home Medications: Home Medications Diazepam TAB(*) [Valium TAB(*)] 1 mg PO DAILY PRN 12/02/17 [History Confirmed ] Levothyroxine TAB* [Synthroid TAB*] 50 mcg PO DAILY 12/02/17 [History Confirmed 12/02/17] PMH/Surg Hx/FS Hx/Imm Hx Endocrine/Hematology History: Denies: Hx Diabetes Cardiovascular History: Reports: Hx Angina, Hx Cardiomegaly - Post-partem cardiomyopathy;, Hx Coronary Artery Disease, Hx Hypercholesterolemia, Hx Hypertension, Hx Myocardial Infarction - in her 20's d/t virus 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 , Other Cardiovascular Problems/Disorders - stents x8, ventrical disease, post partem cardiomyopathy Denies: Hx Congestive Heart Failure, Hx Pacemaker/ICD, Hx Valvular Heart Disease Respiratory History: Denies: Hx Asthma, Hx Chronic Obstructive Pulmonary Disease (COPD), Hx Pneumonia, Hx Seasonal Allergies GI History: Reports: Hx Gall Bladder Disease - Removed in 2006 Sensory History: Denies: Hx Contacts or Glasses, Hx Hearing Aid Opthamlomology History: Denies: Hx Contacts or Glasses Psychiatric History: Reports: Hx Post Traumatic Stress Disorder - Severe PTSD Denies: Hx Panic Disorder - Cancer History Cancer Type, Location and Year: Throat CA, ovarian cancer Hx Radiation Therapy: Yes - 2013; she states she walked away from radiation therapy - Surgical History Surgery Procedure, Year, and Place: Hysterectomy, Lt wrist surgery with orif, right calcaneal surgery, tonsillectomy, appendectomy, laproscopic cholecystectomy, ovarian cancer removal. multiple heart cath and stentings - [facility], [facility] - [facility], [facility]. [facility] Hx Anesthesia Reactions: No Infectious Disease History: No Infectious Disease History: Denies: Traveled Outside the [place] in Last 30 Days - Family History Known Family History: Positive: Cardiac Disease, Other - cancer - Social History Alcohol Use: None Alcohol Amount: unknowm Hx Substance Use: No Substance Use Type: Reports: None Hx Tobacco Use: Yes Smoking Status (MU): Current Some Day Smoker Type: Cigarettes Amount Used/How Often: 4-10 daily Length of Time of Smoking/Using Tobacco: 10 years Have You Smoked in the Last Year: Yes Review of Systems Positive: Skin Diaphoresis Positive: Palpitations, Chest Pain Positive: Shortness Of Breath Positive: Myalgia - L jaw and shoulder pain All Other Systems Reviewed And Are Negative: Yes Physical Exam - Summary Physical Exam Summary: Appearance: The patient is well-nourished in no acute distress and in no acute pain. Skin: The skin is warm and dry and skin color reflects adequate perfusion. HEENT: The head is normocephalic and atraumatic. The pupils are equal and reactive. The conjunctivae are clear and without drainage. Nares are patent and without drainage. Mouth reveals moist mucous membranes and the throat is without erythema and exudate. The external ears are intact. The ear canals are patent and without drainage. The tympanic membranes are intact. Neck: the neck is supple with full range of motion and non-tender. There are no carotid bruits. There is no neck vein distension. Respiratory: Chest is non-tender. Lungs are clear to auscultation and breath sounds are symmetrical and equal. Cardiovascular: Heart is regular rate and rhythm. There is no murmur or rub auscultated. There is no peripheral edema and pulses are symmetrical and equal. Abdomen: The abdomen is soft and non-tender. There are normal bowel sounds heard in all four quadrants and there is no organomegaly palpated. Musculoskeletal: There is no back tenderness noted. Extremities are non-tender with full range of motion. There is good capillary refill. There is no peripheral edema or calf tenderness elicited. Neurological: Patient is alert and oriented to person, place and time. The patient has symmetrical motor strength in all four extremities. Cranial nerves are grossly intact. Deep tendon reflexes are symmetrical and equal in all four extremities. Psychiatric: The patient has an appropriate affect and does not exhibit any anxiety or depression. Triage Information Reviewed: Yes Vital Signs On Initial Exam: Initial Vitals Temp Pulse Resp BP Pulse Ox 98.4 F 88 16 167/96 99 12/02/17 11:15 12/02/17 11:15 12/02/17 11:15 12/02/17 11:15 12/02/17 11:15 Vital Signs Reviewed: Yes Diagnostics - Vital Signs Vital Signs Temp Pulse Resp BP Pulse Ox 12/02/17 11:15 98.4 F 88 16 167/96 99 - Laboratory Lab Results: Lab Results 12/02/17 12/02/17 Range/Units 13:00 13:00 INR (Anticoag Therapy) 0.86 (0.77-1.02) D-Dimer, Quantitative < 200 (Less Than 230) ng/mL Sodium 137 (133-145) mmol/L Potassium 3.9 (3.5-5.0) mmol/L Chloride 104 (101-111) mmol/L Carbon Dioxide 29 (22-32) mmol/L Anion Gap 4 (2-11) mmol/L BUN 10 (6-24) mg/dL Creatinine 1.02 H (0.51-0.95) mg/dL Est GFR ( Amer) 72.6 (>60) Est GFR (Non-Af Amer) 56.5 (>60) BUN/Creatinine Ratio 9.8 (8-20) Glucose 98 (70-100) mg/dL Calcium 9.7 (8.6-10.3) mg/dL Total Bilirubin 0.30 (0.2-1.0) mg/dL AST 14 (13-39) U/L ALT 10 (7-52) U/L Alkaline Phosphatase 67 (34-104) U/L Troponin I 0.00 (<0.04) ng/mL Total Protein 6.9 (6.4-8.9) g/dL Albumin 4.2 (3.2-5.2) g/dL Globulin 2.7 (2-4) g/dL Albumin/Globulin Ratio 1.6 (1-3) Result Diagrams: 12/02/17 18:15 12/03/17 12:41 Lab Statement: Any lab studies that have been ordered have been reviewed, and results considered in the medical decision making process. - Radiology CXR Radiology Interpretation Completed By: Radiologist - NO EVIDENCE FOR ACTIVE CARDIOPULMONARY DISEASE. - EKG 1119 Cardiac Rate: NL - 86 BPM EKG Rhythm: Sinus Rhythm EKG Interpretation: possible LVH EKG Comparison: Other - changed from 05/27/17 1409 Cardiac Rate: NL - at 73 BPM EKG Rhythm: Sinus Rhythm EKG Interpretation: possible LVH, likely early repolarization Re-Evaluation - Re-Evaluation 1 Re-Evaluation Time: 15:05 Change: Unchanged - Patient agrees to admission. Chest Pain Course/Dx - Course Course Of Treatment: Ms. Can had an episode of rapid palpitations that awoke her this AM. She has had CP since and has a history of CAD. Her initial W/U is negative. She is being admitted by the hospitalist. Interesting, her ECG shows a mild LVH. Her most recent ECG shows probable old inferior and anterior MIs. These Q's are gone and I'm not sure what that means. - Diagnoses Provider Diagnoses: Chest pain - Provider Notifications Discussed Care Of Patient With: Kallie Laughlin - hospitalist Time Discussed With Above Provider: 14:37 Instructed by Provider To: Admit As Inpatient - States if patient wants to be admitted she will admit Discharge - Discharge Plan Condition: Stable Disposition: ADMITTED TO [facility] The documentation as recorded by the Jose Manuel friend Julia accurately reflects the service I personally performed and the decisions made by me, Jorge Orellana MD.
--- NOTE | 2017-12-03 15:40 | RAD ---
Edited for charges. INDICATION: Palpitations and chest pain. COMPARISON: Correlation is made with a prior study from May 21, 2017. Technique: A single day myocardial perfusion stress study was performed. Initially the resting study was performed. The patient was given an intravenous injection of 10.1 mCi of technetium 99m tetrofosmin and and the heart was imaged in multiple projections. The patient returned later in the day and under the direction of Dr. Mckeon, the patient was given intervenous injection of Lexiscan. Subsequently the patient was given intravenous injection of 25.2 mCi of technetium 99m tetrofosmin and the heart was imaged in multiple projections. Images were reconstructed in the axial, sagittal and coronal planes and in a 3- D format. FINDINGS: There appears to be normal wall motion and myocardial thickening. The left ventricular ejection fraction was calculated to be 71%. Review of the images demonstrates a moderate size area of decreased activity in the anteroseptal wall which appears similar on both the post pharmacologic stress and resting images. There appears to be normal wall motion in this area which would favor attenuation artifact over infarct. There is also a small area of decreased activity in the inferior wall adjacent to the apex on the post pharmacologic stress images which appears normal on the resting set of images most consistent with a small area of ischemia. IMPRESSION: 1. FINDINGS SUGGESTIVE OF A SMALL AREA OF ISCHEMIA IN THE INFERIOR WALL ADJACENT TO THE APEX WHICH APPEARS NEW FROM THE PRIOR STUDY. 2. DECREASED ACTIVITY IN THE ANTEROSEPTAL WALL SUGGESTIVE OF ATTENUATION ARTIFACT LESS LIKELY INFARCT. ASSESSMENT: Low risk Based on imaging criteria from ACC/AHA 2002 Guideline Update for the Management of Patients With Chronic Stable Angina Table 23. Noninvasive Risk Stratification. MTDD
[2017-12-03 16:29] VITALS: BP 135/57
[2017-12-03] MEDS ORDERED: Atorvastatin* 80 MG TAB PO SCH (17:00)
[2017-12-04] MEDS ORDERED: Aspirin Low Dose CHEW TAB* 81 MG PO SCH (09:00)
--- NOTE | 2017-12-04 14:42 | DS ---
DISCHARGE SUMMARY: DATE OF ADMISSION: 12/02/17 DATE OF DISCHARGE: 12/03/17 HOSPITAL COURSE: This 52-year-old woman presented after 2 episodes of palpitations and syncope, one occurred at 3 a.m. when she was in bed and woke up with palpitations and passed out getting up. Late r in the morning, she was sitting at the couch, writing bills on the table in front of her. She felt the palpitations and passed out with her head ending up on the table. Both these episodes lasted ab out a minute. She notes she is very sedentary. From her previous hospital stay, we found that she had cardiac catheterization in 2007 with a 40% to 50% LAD lesion. She has never had stenting. Although the history states she had a TAVR, it is stacey lly her mother that had a TAVR. Her sister, I believe may have had stenting. The patient states she goes around, I think 3 or 4 different states where her children live and never sees a physician. She did not follow up from her April 2017 admission here. The patient states she ran out of her levothyroxine about a month and a half ago. She could not expla in why she did really nothing to try to obtain more. The rest of the history is detailed in admission note. The patient was admitted to the telemetry unit. She had 4 troponin tests, all of which were within n ormal limits. I note that the IV access was very difficult and she had a midline catheter placed for IV access. She had an echocardiogram, which showed a normal ejection fraction and no wall motion ab normalities. The radiologist's interpretation of the chemical nuclear stress test was a small area o f photopenia near the apex and some in the anterior wall, both were small and she was considered low risk. The anterior wall problem was felt more likely to be attenuation defect rather than ischemia. I think the same was probably true of the apical photopenia as well. The patient was encouraged to get a primary care physician, so she could get a referral to cardiologi st. I think consideration of a loop recorder is reasonable. I have started her on atorvastatin 80 mg daily. She could not get any in the hospital as she was vom iting when the nurse tried to administer it. I note she got a prescription for this last time, but I do not think she ever filled it. I renewed her levothyroxine prescription. I note her TSH was 11. This reflects her not having replacement for over a month. She will be checked in about another sat. She was also instructed to take aspirin 81 mg daily. FINAL DIAGNOSES: 1. Palpitations and syncope. 2. Nonobstructive coronary artery disease. 3. History of smoking. DISCHARGE MEDICATIONS: 1. Aspirin 81 mg daily. 2. Atorvastatin 80 mg daily. 3. Levothyroxine 50 mcg daily. [id number]/[facility] #: [id number]
== END 2017-12-03 17:09 | disposition home or self-care (01) ==
LOC: ED 11:13 → MEDTELE 15:35
PROVIDERS: ADMIT Internal Medicine; ATTEND Internal Medicine
DX: R07.9 Chest pain, unspecified (principal); R55 Syncope and collapse; R06.02 Shortness of breath; E04.9 Nontoxic goiter, unspecified; R00.2 Palpitations; Z72.0 Tobacco use
CPT/HCPCS: 36415; 71046; 78452; 80048; 80053; 80061; 84443; 84484; 85025; 85379; 85610; 93005; 93017; 93306; 96374; 99284; A9270-GY; A9502; C1751; G0378; J1644; J2060; J2270; J2785

== ENCOUNTER → 2018-04-22 23:18 | Emergency (ER) | payer MEDICARE ==
[2018-04-22 23:28] VITALS: BP 125/74
== END | disposition left against medical advice (07) ==
LOC: ED 23:18
DX: R55 Syncope and collapse (principal)

== ENCOUNTER 2018-06-09 09:15 | Emergency (ER) | payer MEDICARE ==
[2018-06-09] MEDS ORDERED: traMADol TAB* 50 MG PO ONE (10:12)
--- NOTE | 2018-06-09 11:07 | RAD ---
Indication: Fall, back pain. CT of the cervical spine was obtained in the axial plane. Sagittal and coronal reconstructed images were obtained. The skull base demonstrates no evidence of fracture. Mastoid air cells are unremarkable. Degenerative changes of the atlantoaxial joint is noted. At C2-C3 there is no disc protrusion noted. No central or foraminal stenosis is noted. At C3-C4 no evidence of disc protrusion is noted. No central or foraminal stenosis is noted. At C4-C5 spondylitic ridge flattens the thecal sac. There is right uncovertebral joint hypertrophy narrowing the right foramen. At C5-C6 spondylitic ridge flattens the thecal sac with right uncovertebral joint hypertrophy narrows the right foramen. At C6-C7 spondylitic ridge flattens the thecal sac. No central or foraminal stenosis is noted. At C7-T1 and T1-T2 no disc protrusion is noted. IMPRESSION: No fracture of the cervical spine is noted. Degenerative disc disease at C4-C5, C5-C6 and C6-C7.
--- NOTE | 2018-06-09 11:16 | RAD ---
Indication: Back pain. CT of the thoracic spine was obtained in the axial plane. Sagittal and coronal reconstructed images were obtained. There is disc space narrowing at multiple levels in the thoracic spine. No fracture is noted. The spinous processes and the posterior ribs are unremarkable. IMPRESSION: No fracture of the thoracic spine is present.
--- NOTE | 2018-06-09 11:19 | RAD ---
Indication: RIGHT low back and RIGHT hip pain; fall 3 weeks ago. Comparison: June 11, 2016 CT. Technique: Multidetector CT pelvis without contrast. Multiplanar reformation with bone algorithm. Report: Moderate diverticulosis of the sigmoid colon without evidence for acute inflammatory change. Negative for ascites or free air within the [id number]. Negative for dilatation of the distal ureters. Unremarkable partially distended urinary bladder as well as the uterus and adnexal regions. Negative for lymphadenopathy. Negative for proximal femur or pelvic fracture or articular malalignment. Both hips are remarkable for mild osteophytosis and axial joint space narrowing without change. Unchanged 0.9 cm sclerotic lesion at the L4 vertebral body compared with the 2016 exam consistent with a benign bone island without concern. Negative for suspicious focal osseous lesions. Variant sacralization of L5. Lumbar sacral spine degenerative spondylosis and facet joint osteoarthritis. Negative for soft tissue plane hematoma or conspicuous soft tissue plane lesions. IMPRESSION: #. No CT evidence for hip or pelvic fracture. #. Mild bilateral hip joint osteoarthritis. #. Refer to dedicated lumbar sacral spine CT report of the same date for further description of degenerative spondylosis and facet joint osteoarthritis. #. Diverticulosis of the colon without findings of diverticulitis within the [id number].
--- NOTE | 2018-06-09 11:23 | RAD ---
INDICATION: Fall, back pain. COMPARISON: Comparison is made with a prior CT of the abdomen and pelvis from June 11, 2016. TECHNIQUE: Contiguous axial sections were obtained beginning above the L1 vertebra and continuing through the L5-S1 disc space. Images were reconstructed in the sagittal and coronal planes. FINDINGS: VERTEBRA: There is a segmentation anomaly at the lumbar sacral junction. For numbering purposes the last full size intervertebral disc will assumed to be the L5-S1 disc space. There is a mild lumbar scoliosis convex toward the left side. The vertebra are otherwise in normal alignment. No acute fracture is seen. There is a sclerotic lesion present within the L5 vertebral body measuring 1 cm in size which is unchanged significantly from the prior study. L1-L2: There is a small left posterior lateral disc protrusion. No significant spinal canal or neural foraminal narrowing is seen. L2-L3: There is a mild broad-based disc bulge and mild hypertrophic changes within the facet joints. No significant spinal canal or neural foraminal narrowing is seen. L3-L4: There is a mild to moderate right posterior lateral and foraminal disc protrusion. There are mild hypertrophic changes within the facet joints. There is mild spinal canal narrowing and mild to moderate neural foraminal narrowing on the right side. L4-L5: There is a moderate broad-based disc bulge which is not well-defined on this study and mild to moderate hypertrophic changes within the facet joints. There appears to be moderate spinal canal narrowing and mild bilateral neural foraminal narrowing. L5-S1: There is a mild broad-based disc bulge and moderate hypertrophic changes within the facet joints. There appears to be mild spinal canal narrowing and mild bilateral neural foraminal narrowing. IMPRESSION: 1. NO EVIDENCE FOR FRACTURE. 2. MODERATE LUMBAR SPONDYLOSIS DESCRIBED WHICH CAN BE FURTHER EVALUATED WITH MR IMAGING CLINICALLY NEEDED. 3. SEGMENTATION ANOMALY NOTED.
--- NOTE | 2018-06-09 11:24 | RAD ---
HISTORY: Right lower extremity pain TECHNIQUE: Multiple transverse and longitudinal ultrasound images were obtained of the veins of the right lower extremity using grayscale, color Doppler, and spectral Doppler imaging with and without compression and with augmentation. FINDINGS: VEINS: The common femoral vein, deep femoral vein, femoral vein and popliteal vein are compressible throughout their course, with normal flow on color Doppler imaging and normal response to augmentation on spectral Doppler imaging. SOFT TISSUES: Grossly normal. No large popliteal fossa cyst was identified. IMPRESSION: No sonographic evidence of deep vein thrombosis.
[2018-06-09 12:12] VITALS: BP 0/0
--- NOTE | 2018-06-09 16:52 | ED ---
Back Pain - HPI Summary HPI Summary: Patient is a 52-year-old female presenting to the ED 3 weeks after sustaining a fall to her right hip. She states since that time she has been having some low right back pain which radiates into the buttocks and to the anterior and posterior upper leg without radiation into the lower leg or foot. She endorses some weakness, however denies any bladder or bowel dysfunction. She remains ambulatory. She has never had these types of symptoms in the past and has never had any trauma to the back. She denies any numbness or tingling to the ipsilateral leg or any radiation of pain throughout the leg in terms of shooting pain. She has been taking ibuprofen 3 weeks with minimal relief. She has not used massage, ice, heat. She has been seen by a chiropractor 1. - History of Current Complaint Chief Complaint: EDBackInjuryPain Stated Complaint: BACK/HIP PAIN Time Seen by Provider: 06/09/18 09:19 Hx Obtained From: Patient Hx Last Menstrual Period: n/a Onset/Duration: Sudden Onset Onset/Duration: Started Hours Ago Timing: Constant Back Pain Location: Is Discrete @ - right sided low back extending to the buttocks and Pain Intensity: 6 Pain Scale Used: 0-10 Numeric Character: Aching Aggravating Symptom(s): Movement Alleviating Symptom(s): Rest Associated Signs And Symptoms: Positive: Negative - Risk Factors AAA Risk Factors: Negative TAD Risk Factors: Negative Cauda Equina Risk Factors: Negative Epidural Abscess Risk Factors: Negative - Allergies/Home Medications Allergies/Adverse Reactions: Allergies Allergy/AdvReac Type Severity Reaction Status Date / Time codeine Allergy Anaphylatic Verified 12/02/17 16:10 Shock morphine Allergy Unknown Verified 06/09/18 11:15 Reaction Details Penicillins Allergy Anaphylatic Verified 12/02/17 16:10 Shock PMH/Surg Hx/FS Hx/Imm Hx Previously Healthy: Yes Endocrine/Hematology History: Reports: Hx Thyroid Disease Denies: Hx Diabetes Cardiovascular History: Reports: Hx Angina, Hx Cardiomegaly - Post-partem cardiomyopathy;, Hx Coronary Artery Disease, Hx Hypercholesterolemia, Hx Hypertension, Hx Myocardial Infarction - in her 20's d/t virus 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 , Other Cardiovascular Problems/Disorders - stents x8, ventrical disease, post partem cardiomyopathy Denies: Hx Congestive Heart Failure, Hx Pacemaker/ICD, Hx Valvular Heart Disease Respiratory History: Denies: Hx Asthma, Hx Chronic Obstructive Pulmonary Disease (COPD), Hx Pneumonia, Hx Seasonal Allergies GI History: Reports: Hx Gall Bladder Disease - Removed in 2006 Sensory History: Denies: Hx Contacts or Glasses, Hx Hearing Aid Opthamlomology History: Denies: Hx Contacts or Glasses Psychiatric History: Reports: Hx Post Traumatic Stress Disorder - Severe PTSD Denies: Hx Panic Disorder - Cancer History Cancer Type, Location and Year: Throat CA, ovarian cancer Hx Radiation Therapy: Yes - 2013; she states she walked away from radiation therapy - Surgical History Surgery Procedure, Year, and Place: Hysterectomy, Lt wrist surgery with orif, right calcaneal surgery, tonsillectomy, appendectomy, laproscopic cholecystectomy, ovarian cancer removal. multiple heart cath and stentings - ( [facility], [facility] - [facility], [facility]. [facility], [facility] Hx Anesthesia Reactions: No - Immunization History Hx Pertussis Vaccination: No Immunizations Up to Date: Yes Infectious Disease History: No Infectious Disease History: Denies: Traveled Outside the [place] in Last 30 Days - Family History Known Family History: Positive: Cardiac Disease, Other - cancer - Social History Occupation: Employed Full-time Lives: With Family Alcohol Use: None Alcohol Amount: unknowm Hx Substance Use: No Substance Use Type: Reports: Other Substance Use Comment - Amount & Last Used: CBD oil Hx Tobacco Use: Yes Smoking Status (MU): Current Some Day Smoker Type: Cigarettes Amount Used/How Often: 4-10 daily Length of Time of Smoking/Using Tobacco: 10 years Have You Smoked in the Last Year: Yes Review of Systems Constitutional: Negative Negative: Fever, Fatigue, Skin Diaphoresis Negative: Palpitations, Chest Pain Negative: Shortness Of Breath, Cough Negative: Abdominal Pain, Vomiting, Diarrhea Positive: Arthralgia, Myalgia Skin: Negative Neurological: Negative All Other Systems Reviewed And Are Negative: Yes Physical Exam Triage Information Reviewed: Yes Vital Signs On Initial Exam: Initial Vitals Temp Pulse Resp BP Pulse Ox 98.8 F 105 16 127/93 97 06/09/18 09:17 06/09/18 09:17 06/09/18 09:17 06/09/18 09:17 06/09/18 09:17 Vital Signs Reviewed: Yes Appearance: Positive: Well-Appearing, Well-Nourished Skin: Positive: Warm, Skin Color Reflects Adequate Perfusion Head/Face: Positive: Normal Head/Face Inspection Eyes: Positive: EOMI, KRISTOPHER, Conjunctiva Clear Neck: Positive: Supple, No Lymphadenopathy Respiratory/Lung Sounds: Positive: Clear to Auscultation, Breath Sounds Present Cardiovascular: Positive: Normal, RRR, Pulses are Symmetrical in both Upper and Lower Extremities Musculoskeletal: Positive: Pain @ - right low back extending to R buttocks and R anterior and posterior upper leg. Negative: Kim Sign Left, Kim Sign Right , Edema Left, Edema Right Neurological: Positive: Speech Normal Psychiatric: Positive: Normal, Affect/Mood Appropriate AVPU Assessment: Alert Diagnostics - Vital Signs Vital Signs Temp Pulse Resp BP Pulse Ox 06/09/18 12:10 0 F 0 0 0/0 0 06/09/18 11:29 77 39 95 06/09/18 11:28 78 24 138/76 97 06/09/18 10:01 20 06/09/18 09:59 15 126/73 06/09/18 09:29 102 6 97 06/09/18 09:28 105 152/107 96 06/09/18 09:17 98.8 F 105 16 127/93 97 - Laboratory Lab Statement: Any lab studies that have been ordered have been reviewed, and results considered in the medical decision making process. Back Pain Course/Dx - Course Course Of Treatment: CT spine cervical, thoracic, lumbar, pelvis as well as ultrasound of the right leg obtained all which was WNL except for some moderate spondylosis. No obvious signs of protrusions which could be a concern for entrapment. Likely this is nerve innervation pain extending into the anterior and posterior thigh. I have offered Flexeril and steroids, both of which she has declined. She will follow-up with neurosurgery. 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 She is diagnosed with lumbar radiculopathy. - Diagnoses Differential Diagnosis/HQI/PQRI: Positive: Strain, Sprain Provider Diagnoses: Lumbar radiculopathy Discharge - Sign-Out/Discharge Documenting (check all that apply): Patient Departure - Discharge Plan Condition: Stable Disposition: HOME Referrals: No Primary Care Phys,NOPCP [Primary Care Provider] - Cholo Ash MD [Medical Doctor] - Additional Instructions: Ibuprofen, gentle low back exercises and stretches, physical therapy could help (through your PCP), moist heat to the area and youth care worker If symptoms persist or fail to improve despite these measures, it could help to see a neurosurgeon (however I feel at this point you are not a surgical candidate) and these other measures will be initially more helpful! - Billing Disposition and Condition Condition: STABLE Disposition: Home
== END 2018-06-09 12:10 | disposition home or self-care (01) ==
LOC: ED 09:15
DX: M54.16 Radiculopathy, lumbar region (principal); M25.551 Pain in right hip; M54.5 Low back pain; Z88.0 Allergy status to penicillin; Z72.0 Tobacco use
CPT/HCPCS: 72125; 72128; 72131; 72192; 99283; A9270-GY

== ENCOUNTER 2018-07-08 15:12 | Emergency (ER) | payer MEDICARE ==
[2018-07-08 20:09] VITALS: BP 142/81
--- NOTE | 2018-07-08 20:40 | ED ---
HPI Cardiac - HPI Summary HPI Summary: A 52 y/o female presents to the ED c/o feeling tachycardic since last night. She had two episodes when lying in bed watching TV. Each episode lasted a couple minutes with 45 mins in between episodes last night where she was feeling tachycardic before her HR would drop. She also c/o dizziness, diaphoresis, feeling disoriented and mid-sternal CP with weakness radiating to her left shoulder. She claims to have a PHx of cardiomyopathy, [place] at 23 years old, cardiac catheterizations and 6 stents. She takes daily Aspirin. She admits to not following up with her cardiologists and she smokes occasionally. The patient eloped. - History of Current Complaint Chief Complaint: EDChestPainROMI Stated Complaint: PALPATATIONS/RT LEG NUMBNESS Time Seen by Provider: 07/08/18 16:12 Hx Obtained From: Patient Hx Last Menstrual Period: n/a Onset/Duration: Started Days Ago Timing: Constant Initial Severity: Severe Current Severity: Severe Pain Intensity: 10 Pain Scale Used: 0-10 Numeric Chest Pain Location: Mid Sternal Chest Pain Radiates: Yes Chest Pain Radiates To:: Shoulder - Additional Pertinent History Primary Care Physician: [id number] - Allergy/Home Medications Allergies/Adverse Reactions: Allergies Allergy/AdvReac Type Severity Reaction Status Date / Time codeine Allergy Anaphylatic Verified 07/08/18 15:38 Shock morphine Allergy Unknown Verified 07/08/18 15:38 Reaction Details Penicillins Allergy Anaphylatic Verified 07/08/18 15:38 Shock PMH/Surg Hx/FS Hx/Imm Hx Endocrine/Hematology History: Reports: Hx Thyroid Disease Denies: Hx Diabetes Cardiovascular History: Reports: Hx Angina, Hx Cardiomegaly - Post-partem cardiomyopathy;, Hx Coronary Artery Disease, Hx Hypercholesterolemia, Hx Hypertension, Hx Myocardial Infarction - in her 20's d/t virus 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 , Other Cardiovascular Problems/Disorders - stents x8, ventrical disease, post partem cardiomyopathy Denies: Hx Congestive Heart Failure, Hx Pacemaker/ICD, Hx Valvular Heart Disease Respiratory History: Denies: Hx Asthma, Hx Chronic Obstructive Pulmonary Disease (COPD), Hx Pneumonia, Hx Seasonal Allergies GI History: Reports: Hx Gall Bladder Disease - Removed in 2006 Sensory History: Denies: Hx Contacts or Glasses, Hx Hearing Aid Opthamlomology History: Denies: Hx Contacts or Glasses Psychiatric History: Reports: Hx Post Traumatic Stress Disorder - Severe PTSD Denies: Hx Panic Disorder - Cancer History Cancer Type, Location and Year: Throat CA, ovarian cancer Hx Radiation Therapy: Yes - 2013; she states she walked away from radiation therapy - Surgical History Surgery Procedure, Year, and Place: Hysterectomy, Lt wrist surgery with orif, right calcaneal surgery, tonsillectomy, appendectomy, laproscopic cholecystectomy, ovarian cancer removal. multiple heart cath and stentings - ( [facility], [facility], [facility]. [facility], [facility] Hx Anesthesia Reactions: No Infectious Disease History: No Infectious Disease History: Denies: Traveled Outside the [place] in Last 30 Days - Family History Known Family History: Positive: Cardiac Disease, Other - cancer - Social History Alcohol Use: None Alcohol Amount: unknowm Hx Substance Use: No Substance Use Type: Reports: Other Substance Use Comment - Amount & Last Used: CBD oil Hx Tobacco Use: Yes Smoking Status (MU): Current Some Day Smoker Type: Cigarettes Amount Used/How Often: 4-10 daily Length of Time of Smoking/Using Tobacco: 10 years Have You Smoked in the Last Year: Yes Review of Systems Positive: Skin Diaphoresis. Negative: Fever Positive: Chest Pain Neurological: Other - Positive: dizziness, feeeling disoriented All Other Systems Reviewed And Are Negative: Yes Physical Exam - Summary Physical Exam Summary: VITAL SIGNS: Reviewed. GENERAL: Patient is a well-developed and nourished FEMALE who is lying comfortable in the stretcher. Patient is not in any acute respiratory distress. HEAD AND FACE: No signs of trauma. No ecchymosis, hematomas or skull depressions. No sinus tenderness. EYES: PERRLA, EOMI x 2, No injected conjunctiva, no nystagmus. EARS: Hearing grossly intact. Ear canals and tympanic membranes are within normal limits. MOUTH: Oropharynx within normal limits. NECK: Supple, trachea is midline, no adenopathy, no JVD, no carotid bruit, no c- spine tenderness, neck with full ROM. CHEST: Symmetric, no tenderness at palpation LUNGS: Clear to auscultation bilaterally. No wheezing or crackles. CVS: Regular rate and rhythm, S1 and S2 present, no murmurs or gallops appreciated. ABDOMEN: Soft, non-tender. No signs of distention. No rebound no guarding, and no masses palpated. Bowel sounds are normal. EXTREMITIES: FROM in all major joints, no edema, no cyanosis or clubbing. NEURO: Alert and oriented x 3. No acute neurological deficits. Speech is normal and follows commands. SKIN: Dry and warm Triage Information Reviewed: Yes Vital Signs On Initial Exam: Initial Vitals Temp Pulse Resp BP Pulse Ox 98.6 F 93 16 134/96 95 07/08/18 15:32 07/08/18 15:32 07/08/18 15:32 07/08/18 15:32 07/08/18 15:32 Vital Signs Reviewed: Yes Diagnostics - Vital Signs Vital Signs Temp Pulse Resp BP Pulse Ox 07/08/18 19:49 80 15 142/81 97 07/08/18 19:19 83 12 121/77 99 07/08/18 19:18 12 07/08/18 17:37 98.3 F 79 16 145/66 99 07/08/18 15:32 98.6 F 93 16 134/96 95 - Laboratory Lab Statement: Any lab studies that have been ordered have been reviewed, and results considered in the medical decision making process. - EKG 15:46 Cardiac Rate: NL - 84bpm EKG Rhythm: Sinus Rhythm ST Segment: Normal EKG Interpretation: Normal axis. Normal interval. No ischemic changes Disposition - Course Course Of Treatment: A 52 y/o female presents to the ED c/o feeling tachycardic since last night. She had two episodes when lying in bed watching TV. Each episode lasted a couple minutes with 45 mins in between episodes last night where she was feeling tachycardic before her HR would drop. She also c/o dizziness, diaphoresis, feeling disoriented and mid-sternal CP with weakness radiating to her left shoulder. She claims to have a PHx of cardiomyopathy, [place] at 23 years old, cardiac catheterizations and 6 stents. She takes daily Aspirin. She admits to not following up with her cardiologists and she smokes occasionally. An EKG revealed a normal rate of 84 bpm. The patient eloped. The patient had a normal exam and then the patient eloped at 20:00. The patient was diagnosed with palpitations and CP. - Diagnoses Provider Diagnoses: Chest pain, Palpitations Discharge - Sign-Out/Discharge Documenting (check all that apply): Patient Departure - Discharge Plan Condition: Good Disposition: ELOPEMENT Referrals: No Primary Care Phys,NOPCP [Primary Care Provider] - - Attestation Statements Document Initiated by Scribe: Yes Documenting Scribe: Matt Cassidy Provider For Whom Scribe is Documenting (Include Credential): Jacob Cruz MD Scribe Attestation: IMatt, scribed for Jacob Cruz MD on 07/08/18 at 5975.
[2018-07-09] MEDS ORDERED: Aspirin 81 mg CHEW TAB* 81 MG TAB.CHEW PO SCH (09:00)
== END 2018-07-08 20:11 | disposition home or self-care (01) ==
LOC: ED 15:12
DX: R07.9 Chest pain, unspecified (principal); R00.2 Palpitations; I25.2 Old myocardial infarction; Z79.82 Long term (current) use of aspirin; F17.210 Nicotine dependence, cigarettes, uncomplicated; I25.10 Atherosclerotic heart disease of native coronary artery without angina pectoris; I10 Essential (primary) hypertension; Z85.43 Personal history of malignant neoplasm of ovary; Z85.819 Personal history of malignant neoplasm of unspecified site of lip, oral cavity, and pharynx
CPT/HCPCS: 93005; 99282

== ENCOUNTER 2019-03-04 09:07 | Emergency (ER) | payer MEDICARE ==
--- NOTE | 2019-03-04 09:47 | ED ---
Influenza-Like Illness - HPI Summary HPI Summary: Patient is a 53-year-old otherwise healthy female presenting to the ED with chest congestion and cough 3 weeks. She states she begin the symptoms 3 weeks ago, and they have been worsening. Endorses fevers, sweats, chills. Endorses cough with production of green sputum. She is not taking anything over-the- counter for relief. She states she had a -induced cardiomyopathy many years ago and had stent placements. She does not take any medication and does not see a stick puller. She denies any chest pain with this, however is endorsing chest wall discomfort with cough. Denies any shortness of breath. Denies any weakness. Patient is a former smoker. - History of Current Complaint Chief Complaint: EDFluSymptoms Time Seen by Provider: 03/04/19 09:15 Hx Obtained From: Patient Severity: Moderate Associated Signs & Symptoms: Fever, T Max, F/C - Risk Factors Influenza Risk Factors: Negative - Allergy/Home Medications Allergies/Adverse Reactions: Allergies Allergy/AdvReac Type Severity Reaction Status Date / Time codeine Allergy Anaphylatic Verified 07/08/18 15:38 Shock morphine Allergy Unknown Verified 07/08/18 15:38 Reaction Details Penicillins Allergy Anaphylatic Verified 07/08/18 15:38 Shock PMH/Surg Hx/FS Hx/Imm Hx Previously Healthy: Yes Endocrine/Hematology History: Reports: Hx Thyroid Disease Denies: Hx Diabetes Cardiovascular History: Reports: Hx Angina, Hx Cardiomegaly - Post-partem cardiomyopathy;, Hx Coronary Artery Disease, Hx Hypercholesterolemia, Hx Hypertension, Hx Myocardial Infarction - in her s d/t virus 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 , Other Cardiovascular Problems/Disorders - stents x8, ventrical disease, post partem cardiomyopathy Denies: Hx Congestive Heart Failure, Hx Pacemaker/ICD, Hx Valvular Heart Disease Respiratory History: Denies: Hx Asthma, Hx Chronic Obstructive Pulmonary Disease (COPD), Hx Pneumonia, Hx Seasonal Allergies GI History: Reports: Hx Gall Bladder Disease - Removed in 2006 Sensory History: Denies: Hx Contacts or Glasses, Hx Hearing Aid Opthamlomology History: Denies: Hx Contacts or Glasses Psychiatric History: Reports: Hx Post Traumatic Stress Disorder - Severe PTSD Denies: Hx Panic Disorder - Cancer History Cancer Type, Location and Year: Throat CA, ovarian cancer Hx Radiation Therapy: Yes - 2013; she states she walked away from radiation therapy - Surgical History Surgery Procedure, Year, and Place: Hysterectomy, Lt wrist surgery with orif, right calcaneal surgery, tonsillectomy, appendectomy, laproscopic cholecystectomy, ovarian cancer removal. multiple heart cath and stentings - ( [facility] [place] [facility], [facility]. [facility], [facility] Hx Anesthesia Reactions: No - Immunization History Hx Pertussis Vaccination: No Immunizations Up to Date: Yes Infectious Disease History: No Infectious Disease History: Denies: Traveled Outside the [place] in Last 30 Days - Family History Known Family History: Positive: Cardiac Disease, Other - cancer - Social History Occupation: Employed Full-time Lives: With Family Alcohol Use: None Alcohol Amount: unknowm Hx Substance Use: No Substance Use Type: Reports: Other Substance Use Comment - Amount & Last Used: CBD oil Hx Tobacco Use: Yes Smoking Status (MU): Former Smoker Type: Cigarettes Amount Used/How Often: 4-10 daily Length of Time of Smoking/Using Tobacco: 10 years Have You Smoked in the Last Year: Yes Review of Systems Positive: Fever, Chills, Fatigue, Skin Diaphoresis Negative: Blurred Vision Negative: Dental Pain Negative: Palpitations, Chest Pain Positive: Shortness Of Breath, Cough Negative: Abdominal Pain, Vomiting, Nausea Genitourinary: Negative Positive: no symptoms reported, see HPI Negative: Rash, Bruising Neurological: Negative All Other Systems Reviewed And Are Negative: Yes Physical Exam Triage Information Reviewed: Yes Vital Signs On Initial Exam: Initial Vitals Temp Pulse Resp BP Pulse Ox 97.8 F 75 18 114/72 98 03/04/19 09:09 03/04/19 09:09 03/04/19 09:09 03/04/19 09:09 03/04/19 09:09 Vital Signs Reviewed: Yes Appearance: Positive: Well-Appearing, Well-Nourished Skin: Positive: Warm, Skin Color Reflects Adequate Perfusion Head/Face: Positive: Normal Head/Face Inspection Eyes: Positive: EOMI, Conjunctiva Clear Neck: Positive: Supple, No Lymphadenopathy Respiratory/Lung Sounds: Positive: Rhonchi, Wheezes. Negative: Unable to speak in full sentences, Fatigue Cardiovascular: Positive: RRR, Pulses are Symmetrical in both Upper and Lower Extremities Musculoskeletal: Positive: Normal, Strength/ROM Intact Psychiatric: Positive: Affect/Mood Appropriate AVPU Assessment: Alert Diagnostics - Vital Signs Vital Signs Temp Pulse Resp BP Pulse Ox 03/04/19 09:09 97.8 F 75 18 114/72 98 - Laboratory Result Diagrams: 03/04/19 09:58 03/04/19 09:58 Lab Statement: Any lab studies that have been ordered have been reviewed, and results considered in the medical decision making process. Flu Symptom Course/Dx - Course Course Of Treatment: Patient is evaluated for cough and congestion 3 weeks. Endorses fevers, sweats, chills. She states she has not taken anything over-the -counter for relief. On physical examination, she has wheezing noted bilaterally as well as rhonchorous sounds, most notably to the left lung base. Cough is heard on exam which is rhonchorous. Labs obtained. Chest x-ray obtained which shows no acute cardiopulmonary findings. Based on patient's symptoms of fevers, sweats, chills, productive cough 3 weeks, as well as smoking history, patient will be treated with Zithromax and Tessalon. Albuterol inhaler given for shortness of breath. Patient will be discharged with the diagnosis of acute bronchitis. She offers no complaint this time. - Diagnoses Differential Diagnosis/HQI/PQRI: Positive: Bronchitis, Influenza, Pneumonia, Upper Respiratory Infection Provider Diagnoses: Bronchitis Discharge - Sign-Out/Discharge Documenting (check all that apply): Patient Departure Patient Received Moderate/Deep Sedation with Procedure: No - Discharge Plan Condition: Stable Disposition: HOME Prescriptions: Azithromyxin HUGH (NF) [Z-Hugh (Zithromax) 250 mg tabs #6] 2 tab PO .TODAY, THEN 1 DAILY #6 tab Benzonatate CAP* [Tessalon CAP*] 100 mg PO TID #21 cap Patient Education Materials: Acute Bronchitis (ED) Referrals: No Primary Care Phys,NOPCP [Primary Care Provider] - Additional Instructions: Azithromycin, 2 tabs today than 14 days Albuterol inhaler as needed for cough and shortness of breath Tessalon to 3 times daily for cough He is [id number] cough medications as well, cough drops for relief Humidifier in the home health Vitamin C and echinacea - Billing Disposition and Condition Condition: STABLE Disposition: Home - Attestation Statements Provider Attestation: I was available for consult. This patient was seen by the HONG. The patient was not presented to, seen by, or examined by me. -Jose Manuel
[2019-03-04 10:08] LABS: ABS Eosinophils 0.1 10^3/ul (0-0.6); ABS Lymphocytes 0.8 10^3/ul (1.0-4.8); ABS Monocytes 0.2 10^3/ul (0-0.8); ABS Neutrophils 3.3 10^3/ul (1.5-7.7); Eosinophil % 1.9 %; Hematocrit 41 % (35-47); Hemoglobin 13.9 g/dL (12.0-16.0); Lymphocyte % 18.4 %; Mean Corpuscular HGB Conc 34 g/dL (31-36); Mean Corpuscular Hemoglobin 29 pg (27-31); Mean Corpuscular Volume 85 fL (80-97); Mean Platelet Volume 6.8 fL (7.4-10.4); Platelet Count 301 10^3/uL (150-450); Red Blood Count 4.78 10^6 /uL (3.70-4.87); Red Cell Distribution Width 14 % (10.5-15); White Blood Count 4.5 10^3/uL (3.5-10.8)
[2019-03-04 10:29] LABS: C Reactive Protein 12.07 mg/L (<8.01); Calcium 10.3 mg/dL (8.6-10.3); EGFR African American 69.7 (>60); EGFR Non-African American 57.6 (>60); Potassium 3.2 mmol/L (3.5-5.0)
[2019-03-04 10:49] VITALS: BP 139/63
[2019-03-04] MEDS: Albuterol HFA INHALER* 8 gm MDI INH ONE (11:04)
== END 2019-03-04 10:49 | disposition home or self-care (01) ==
LOC: ED 09:07
DX: J40 Bronchitis, not specified as acute or chronic (principal); I25.10 Atherosclerotic heart disease of native coronary artery without angina pectoris; I10 Essential (primary) hypertension; Z87.891 Personal history of nicotine dependence; Z88.5 Allergy status to narcotic agent; Z88.0 Allergy status to penicillin
CPT/HCPCS: 36415; 71046; 80048; 85025; 86140; 93005; 99283; A9270-GY

== ENCOUNTER 2019-06-16 06:05 | Emergency (ER) | payer MEDICARE, MEDICAID ==
[2019-06-16] MEDS ORDERED: Albuterol/Ipratropium NEB.SOL* Albuterol 2.5 MG/Ipratropium 0.5 MG 3 ML INH ONE (06:40)
--- NOTE | 2019-06-16 06:47 | ED ---
Respiratory - HPI Summary HPI Summary: 53 year old female presents with cough and shortness breath for the past month. States that she can't get over this cough. She states she took a zpack 2 weeks ago without relief. She is a smoker. She does have a history of cardiomyopathy. She denies any increase swelling or weight change. She denies any chest pain. No bowel pain. No sore throat. Admits to occasional sinus congestion. Was also treated for an external ear infection 2 weeks ago that has resolved. She hasn't taking anything for her symptoms. - History of Current Complaint Chief Complaint: EDShortnessOfBreath Stated Complaint: SOB PER PT Time Seen by Provider: 06/16/19 06:25 Pain Intensity: 5 - Allergy/Home Medications Allergies/Adverse Reactions: Allergies Allergy/AdvReac Type Severity Reaction Status Date / Time codeine Allergy Anaphylatic Verified 06/16/19 06:08 Shock morphine Allergy Unknown Verified 06/16/19 06:08 Reaction Details Penicillins Allergy Anaphylatic Verified 06/16/19 06:08 Shock PMH/Surg Hx/FS Hx/Imm Hx Endocrine/Hematology History: Reports: Hx Thyroid Disease Denies: Hx Diabetes Cardiovascular History: Reports: Hx Angina, Hx Cardiomegaly - Post-partem cardiomyopathy;, Hx Coronary Artery Disease, Hx Hypercholesterolemia, Hx Hypertension, Hx Myocardial Infarction - in her s d/t virus 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 , Other Cardiovascular Problems/Disorders - stents x8, ventrical disease, post partem cardiomyopathy Denies: Hx Congestive Heart Failure, Hx Pacemaker/ICD, Hx Valvular Heart Disease Respiratory History: Denies: Hx Asthma, Hx Chronic Obstructive Pulmonary Disease (COPD), Hx Pneumonia, Hx Seasonal Allergies GI History: Reports: Hx Gall Bladder Disease - Removed in 2006 Sensory History: Denies: Hx Contacts or Glasses, Hx Hearing Aid Opthamlomology History: Denies: Hx Contacts or Glasses Psychiatric History: Reports: Hx Post Traumatic Stress Disorder - Severe PTSD Denies: Hx Panic Disorder - Cancer History Cancer Type, Location and Year: Throat CA, ovarian cancer Hx Radiation Therapy: Yes - 2013; she states she walked away from radiation therapy - Surgical History Surgery Procedure, Year, and Place: Hysterectomy, Lt wrist surgery with orif, right calcaneal surgery, tonsillectomy, appendectomy, laproscopic cholecystectomy, ovarian cancer removal. multiple heart cath and stentings - ( [facility], [place] [facility], [facility]. [facility], [facility] Hx Anesthesia Reactions: No Infectious Disease History: No Infectious Disease History: Denies: Traveled Outside the [place] in Last 30 Days - Family History Known Family History: Positive: Cardiac Disease, Other - cancer - Social History Alcohol Use: None Alcohol Amount: unknowm Hx Substance Use: No Substance Use Type: Reports: Other Substance Use Comment - Amount & Last Used: CBD oil Hx Tobacco Use: Yes Smoking Status (MU): Former Smoker Type: Cigarettes Amount Used/How Often: 4-10 daily Length of Time of Smoking/Using Tobacco: 10 years Have You Smoked in the Last Year: Yes Review of Systems Negative: Fever Negative: Chest Pain Positive: Shortness Of Breath, Cough Negative: Abdominal Pain All Other Systems Reviewed And Are Negative: Yes Physical Exam Triage Information Reviewed: Yes Vital Signs On Initial Exam: Initial Vitals Temp Pulse Resp BP Pulse Ox 98.4 F 94 20 138/88 97 06/16/19 06:05 06/16/19 06:05 06/16/19 06:05 06/16/19 06:05 06/16/19 06:05 Vital Signs Reviewed: Yes Appearance: Positive: Well-Appearing Skin: Positive: Warm, Dry Head/Face: Positive: Normal Head/Face Inspection Eyes: Positive: Normal, EOMI, KRISTOPHER, Conjunctiva Clear ENT: Positive: Normal ENT inspection, Pharynx normal, TMs normal Respiratory/Lung Sounds: Positive: Decreased Breath Sounds, Wheezes Cardiovascular: Positive: Normal, RRR Abdomen Description: Positive: Nontender, Soft Bowel Sounds: Positive: Present Musculoskeletal: Positive: Normal Neurological: Positive: Normal Psychiatric: Positive: Normal Diagnostics - Vital Signs Vital Signs Temp Pulse Resp BP Pulse Ox 06/16/19 06:26 83 136/83 98 06/16/19 06:25 86 98 06/16/19 06:05 98.4 F 94 20 138/88 97 - Laboratory Result Diagrams: 06/16/19 07:13 Lab Statement: Any lab studies that have been ordered have been reviewed, and results considered in the medical decision making process. - Radiology chest Radiology Interpretation Completed By: Radiologist Summary of Radiographic Findings: IMPRESSION: HYPERINFLATION, CONSISTENT WITH COPD. NO ACTIVE CARDIOPULMONARY DISEASE. - EKG No standard instances Cardiac Rate: NL EKG Rhythm: Sinus Rhythm EKG Comparison: No Significant Change Summary of EKG Findings: sinus rhythm Re-Evaluation - Re-Evaluation First Eval Re-Evaluation Time: 08:03 Change: Improved Comment: lungs CTA after breathing treatment, unable to get cbc and patient does not want to be poked anymore. as got cmp will not need further labs Disposition - Course Course Of Treatment: 53 year old female presents with cough and shortness breath for the past month. States that she can't get over this cough. She states she took a zpack 2 weeks ago without relief. She is a smoker. She does have a history of cardiomyopathy. She denies any increase swelling or weight change. She denies any chest pain. No bowel pain. No sore throat. Admits to occasional sinus congestion. Was also treated for an external ear infection 2 weeks ago that has resolved. She hasn't taking anything for her symptoms. on exam dec breath sounds and wheezing heard. chest xray shows . ekg is similiar to previous. lab work unable to get cbc. bnp normal. troponin zero. will treat for bronchitis with inhaler and steriod. told to est care with primary as likely needs further testing bc likely has copd. patient understand and agrees with plan. - Differential Dx - Cardiopulmonary Differential Diagnoses - Cardiopulmonary: Bronchitis, Exacerbation Of COPD, Lower Resp Infection - Diagnoses Provider Diagnoses: Bronchitis Discharge ED - Sign-Out/Discharge Documenting (check all that apply): Patient Departure Patient Received Moderate/Deep Sedation with Procedure: No - Discharge Plan Condition: Good Disposition: HOME Prescriptions: Albuterol HFA INHALER* [Ventolin HFA Inhaler*] 1 - 2 puff INH Q6H PRN #1 mdi PRN Reason: Cough Benzonatate CAP* [Tessalon 100 MG CAP*] 100 mg PO TID #21 cap predniSONE TAB* [Deltasone TAB*] 50 mg PO DAILY #4 tab Patient Education Materials: Acute Bronchitis (ED) Referrals: [facility] [Outside] Additional Instructions: Use inhaler up to two puffs every 4 hours for cough and wheezing Take steroid once a day for 4 more days starting tomorrow take tessalon three times a day for cough Take Tylenol for pain every 6 hours Establish care with primary Return to ED if develop any new or worsening symptoms - Billing Disposition and Condition Condition: GOOD Disposition: Home
[2019-06-16] MEDS ORDERED: predniSONE TAB* 20 MG PO ONE (07:32)
[2019-06-16 07:41] LABS: Albumin 4.2 g/dL (3.2-5.2); Albumin/Globulin Ratio 1.6 (1-3); BUN/Creatinine Ratio 20.8 (8-20); Calcium 9.8 mg/dL (8.6-10.3); EGFR African American 101.8 (>60); EGFR Non-African American 84.1 (>60); Globulin 2.6 g/dL (2-4); Potassium 4.3 mmol/L (3.5-5.0); Total Bilirubin 0.5 mg/dL (0.2-1.0); Total Protein 6.8 g/dL (6.4-8.9)
[2019-06-16 08:14] VITALS: BP 149/73
== END 2019-06-16 08:14 | disposition home or self-care (01) ==
LOC: ED 06:05
DX: J40 Bronchitis, not specified as acute or chronic (principal); E07.9 Disorder of thyroid, unspecified; I25.119 Atherosclerotic heart disease of native coronary artery with unspecified angina pectoris; E78.00 Pure hypercholesterolemia, unspecified; I10 Essential (primary) hypertension; I25.2 Old myocardial infarction; Z95.5 Presence of coronary angioplasty implant and graft; Z85.89 Personal history of malignant neoplasm of other organs and systems; Z85.43 Personal history of malignant neoplasm of ovary; Z90.710 Acquired absence of both cervix and uterus; Z90.49 Acquired absence of other specified parts of digestive tract; Z87.891 Personal history of nicotine dependence; Z79.899 Other long term (current) drug therapy; Z88.5 Allergy status to narcotic agent; Z88.0 Allergy status to penicillin
CPT/HCPCS: 36415; 71046; 80053; 83880; 84484; 93005; 99282; A9270-GY; J7512

== ENCOUNTER 2019-06-21 01:03 | Emergency (ER) | payer MEDICARE, MEDICAID ==
[2019-06-21] MEDS ORDERED: Ketorolac INJ* 30 MG/ML 1 ML VIAL IV PUSH ONE (01:51)
[2019-06-21] MEDS ORDERED: Morphine 4 MG/ML VIAL (1 ml) 4 MG/ML VIAL IV ONE (01:51)
[2019-06-21] MEDS ORDERED: NS 0.9% 1000 ML** 1,000 ML IV ONE (01:51)
[2019-06-21] MEDS ORDERED: Morphine 4 MG/ML VIAL (1 ml) 4 MG/ML VIAL IV PRN (01:51)
[2019-06-21 02:30] LABS: Urine Appearance Clear; Urine Bacteria Absent (Absent); Urine Bilirubin Negative (Negative); Urine Blood Negative (Negative); Urine Color Yellow; Urine Glucose Negative (Negative); Urine Ketones Negative (Negative); Urine Nitrite Negative (Negative); Urine Protein Negative (Negative); Urine Red Blood Cell Absent (Absent); Urine Specific Gravity 1.025 (1.010-1.030); Urine Squamous Epithelial Cell Present (Absent); Urine Urobilinogen Negative (Negative); Urine White Blood Cell Trace(0-5/hpf) (Absent)
[2019-06-21] MEDS ORDERED: Ketorolac INJ* 30 MG/ML 1 ML VIAL IM ONE (02:31)
--- NOTE | 2019-06-21 02:32 | ED ---
HPI Chest Pain - HPI Summary HPI Summary: 53 year old F presenting to [facility] with a chief complaint of chest pain pain starting several hours ago. The patient rates the pain 10/10 in severity, describing it as paralyzing. The chest pain radiates to her back and is accompanied by left rib pain from trauma endured from a fall several days ago. She also reports low left flank and abdominal pain and difficulty ambulating. The patient has a history of cancer and seizures. She is unsure if she had a seizure tonight. Currently, her symptoms are rated 10/10 in severity with movement as an aggravating factor and rest as alleviating. No hx of back problems. - History of Current Complaint Chief Complaint: EDChestWallPain Time Seen by Provider: 06/21/19 01:45 Hx Obtained From: Patient Hx Last Menstrual Period: n/a Onset/Duration: Started Hours Ago, Still Present Timing: Constant Initial Severity: Severe Current Severity: Severe Pain Intensity: 10 Pain Scale Used: 0-10 Numeric Chest Pain Location: Diffuse Chest Pain Radiates: Yes Chest Pain Radiates To:: Back, Flank Character: Sharp/Stabbing Aggravating Factor(s): Movement Alleviating Factor(s): Rest Associated Signs and Symptoms: Positive: Chest Pain, Back Pain, Abdominal Pain - flank, LLQ - Additional Pertinent History Primary Care Physician: BENJI - Allergy/Home Medications Allergies/Adverse Reactions: Allergies Allergy/AdvReac Type Severity Reaction Status Date / Time codeine Allergy Anaphylatic Verified 06/21/19 01:14 Shock morphine Allergy Unknown Verified 06/21/19 01:14 Reaction Details Penicillins Allergy Anaphylatic Verified 06/21/19 01:14 Shock PMH/Surg Hx/FS Hx/Imm Hx Endocrine/Hematology History: Reports: Hx Thyroid Disease Denies: Hx Diabetes Cardiovascular History: Reports: Hx Angina, Hx Cardiomegaly - Post-partem cardiomyopathy;, Hx Coronary Artery Disease, Hx Hypercholesterolemia, Hx Hypertension, Hx Myocardial Infarction - in her 20's d/t virus 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 , Other Cardiovascular Problems/Disorders - stents x8, ventrical disease, post partem cardiomyopathy Denies: Hx Congestive Heart Failure, Hx Pacemaker/ICD, Hx Valvular Heart Disease Respiratory History: Denies: Hx Asthma, Hx Chronic Obstructive Pulmonary Disease (COPD), Hx Pneumonia, Hx Seasonal Allergies GI History: Reports: Hx Gall Bladder Disease - Removed in 2006 Sensory History: Denies: Hx Contacts or Glasses, Hx Hearing Aid Opthamlomology History: Denies: Hx Contacts or Glasses Psychiatric History: Reports: Hx Post Traumatic Stress Disorder - Severe PTSD Denies: Hx Panic Disorder - Cancer History Cancer Type, Location and Year: Throat CA, ovarian cancer Hx Radiation Therapy: Yes - 2013; she states she walked away from radiation therapy - Surgical History Surgery Procedure, Year, and Place: Hysterectomy, Lt wrist surgery with orif, right calcaneal surgery, tonsillectomy, appendectomy, laproscopic cholecystectomy, ovarian cancer removal. multiple heart cath and stentings - ( [facility], [facility], [facility]. [facility], [facility] Hx Anesthesia Reactions: No Infectious Disease History: No Infectious Disease History: Denies: Traveled Outside the [place] in Last 30 Days - Family History Known Family History: Positive: Cardiac Disease, Other - cancer - Social History Alcohol Use: None Alcohol Amount: unknowm Hx Substance Use: No Substance Use Type: Reports: Other Substance Use Comment - Amount & Last Used: CBD oil Hx Tobacco Use: Yes Smoking Status (MU): Former Smoker Type: Cigarettes Amount Used/How Often: 4-10 daily Length of Time of Smoking/Using Tobacco: 10 years Have You Smoked in the Last Year: Yes Review of Systems Positive: Chest Pain Positive: Abdominal Pain Positive: Other - Rib pain, back pain, difficulty walking All Other Systems Reviewed And Are Negative: Yes Physical Exam - Summary Physical Exam Summary: Appearance: Well-appearing, Well-nourished. Obvious distress, tearful in pain. Skin: Warm, dry, no obvious rash Eyes: sclera anicteric, no conjunctival pallor ENT: mucous membranes moist, pharynx appears normal Neck: Supple, nontender Respiratory: Clear to auscultation, no signs of respiratory distress Cardiovascular: Normal S1, S2. No murmurs. Normal distal pulses in tibial and radial bilaterally. Abdomen: Soft, nontender, normal active bowel sounds present Musculoskeletal: Normal, Strength/ROM Intact. Focal tenderness over left lower lateral rib with small associated bruise from a few days ago. Pain and tenderness in the lower left back, radiating into the left flank also with a small associated bruise. Neurological: A&Ox3, awake and alert, mentation is normal, speech is fluent and appropriate Psychiatric: affect is normal, does not appear anxious or depressed Triage Information Reviewed: Yes Vital Signs On Initial Exam: Initial Vitals Temp Pulse Resp BP Pulse Ox 99 F 96 22 140/86 96 06/21/19 01:12 06/21/19 01:12 06/21/19 01:12 06/21/19 01:12 06/21/19 01:12 Vital Signs Reviewed: Yes Diagnostics - Vital Signs Vital Signs Temp Pulse Resp BP Pulse Ox 06/21/19 01:26 98 108/93 96 06/21/19 01:12 99 F 96 22 140/86 96 - Laboratory Result Diagrams: 06/21/19 02:35 06/21/19 02:35 Lab Statement: Any lab studies that have been ordered have been reviewed, and results considered in the medical decision making process. - Radiology Lumbar XR Radiology Interpretation Completed By: ED Physician Summary of Radiographic Findings: No fractures, dislocations, or deformities noted. ED physician has reviewed this report. Pending official read. R Radiology Interpretation Completed By: ED Physician Summary of Radiographic Findings: No fractures, dislocations, or deformities noted. ED physician has reviewed this report. Pending official read. Ribs with Chest XR Radiology Interpretation Completed By: ED Physician Summary of Radiographic Findings: No fractures, dislocations, or deformities noted. ED physician has reviewed this report. Pending official read. - EKG 01:07 Cardiac Rate: NL - 87 bpm EKG Rhythm: Sinus Rhythm Summary of EKG Findings: NSR at 87 BPM, P waves, QRS complex, and T waves are within normal limits, T waves and intervals are normal, no ischemic changes. This is a normal EKG. Chest Pain Course/Dx - Course Course Of Treatment: 53 year old F presenting to [facility] with a chief complaint of chest pain starting several hours ago. The patient rates the pain 10/10 in severity, describing it as paralyzing. The chest pain radiates to her back and is accompanied by rib pain from trauma endured from a fall several days ago. She also reports abdominal pain and difficulty ambulating. The patient has a history of cancer and seizures. Patient displays obvious distress upon physical exam. She is tearful and in pain. Focal tenderness over left lower lateral rib with small associated bruise from a few days ago, pain and tenderness in the lower left back radiating into the left flank also with a small associated bruise. No fractures, dislocations, or deformities noted in both the lumbar back XR and ribs with chest XR, per my evaluation. Laboratory results show an RBC of 4.96 H, MPV of 6.9 L, BUN/Creatinine Ratio of 20.5 H, 104 H, trace A urine leukocyte esterase, and present A urine squamous epitheal cells. EKG at 01:07 shows NSR at 87 BPM, P waves, QRS complex, and T waves are within normal limits, T waves and intervals are normal, no ischemic changes. This is a normal EKG. Diagnosis is acute lower back pain and rib contusion. - Diagnoses Provider Diagnoses: Lower back pain, Rib contusion Is Visit Related: No Discharge ED - Sign-Out/Discharge Documenting (check all that apply): Patient Departure - Patient will be discharged home. Patient Received Moderate/Deep Sedation with Procedure: No - Discharge Plan Condition: Improved Disposition: HOME Prescriptions: HYDROmorphone TAB* [Dilaudid TAB*] 4 mg PO Q4H PRN #12 tab MDD 4 PRN Reason: Pain - Severe Patient Education Materials: Acute Low Back Pain (ED), Rib Contusion (ED) Referrals: [facility] [Outside] Additional Instructions: Check in with your regular doctor if the pain persists more than a few days. I did not see any sign of a broken rib or back bone on your xrays, they will be checked by the radiologist in the morning. - Billing Disposition and Condition Condition: IMPROVED Disposition: Home - Attestation Statements Document Initiated by Sondra: Yes Documenting Scribe: Julius Winn Provider For Whom Sondra is Documenting (Include Credential): Jorge Banda MD. Scribe Attestation: Julius Diaz, scribed for Jorge Banda MD. on 06/22/19 at 0656. Scribe Documentation Reviewed: Yes Provider Attestation: The documentation as recorded by the [email or web address] tobar accurately reflects the service I personally performed and the decisions made by me, Jorge Banda MD. Status of Scribe Document: Viewed
[2019-06-21 02:56] LABS: ABS Eosinophils 0.2 10^3/ul (0-0.6); ABS Lymphocytes 1.1 10^3/ul (1.0-4.8); ABS Monocytes 0.3 10^3/ul (0-0.8); ABS Neutrophils 3.8 10^3/ul (1.5-7.7); Eosinophil % 2.8 %; Hematocrit 43 % (35-47); Hemoglobin 14.7 g/dL (12.0-16.0); Lymphocyte % 20.4 %; Mean Corpuscular HGB Conc 34 g/dL (31-36); Mean Corpuscular Hemoglobin 30 pg (27-31); Mean Corpuscular Volume 87 fL (80-97); Mean Platelet Volume 6.9 fL (7.4-10.4); Platelet Count 286 10^3/uL (150-450); Red Blood Count 4.96 10^6 /uL (3.70-4.87); Red Cell Distribution Width 13 % (10-15); White Blood Count 5.4 10^3/uL (3.5-10.8)
[2019-06-21] MEDS ORDERED: HYDROmorphone TAB* 4 MG PO ONE (02:58)
[2019-06-21 03:04] LABS: ALT 10 U/L (7-52); AST 14 U/L (13-39); Albumin 4.4 g/dL (3.2-5.2); Albumin/Globulin Ratio 1.8 (1-3); Alkaline Phosphatase 72 U/L (34-104); Anion Gap 6 mmol/L (2-11); BUN/Creatinine Ratio 20.5 (8-20); Blood Urea Nitrogen 15 mg/dL (6-24); C Reactive Protein 3.25 mg/L (<8.01); CO2 Carbon Dioxide 25 mmol/L (22-32); Calcium 9.7 mg/dL (8.6-10.3); Chloride 108 mmol/L (101-111); EGFR African American 100.2 (>60); EGFR Non-African American 82.8 (>60); Globulin 2.5 g/dL (2-4); Glucose 104 mg/dL (70-100); Potassium 3.7 mmol/L (3.5-5.0); Sodium 139 mmol/L (135-145); Total Protein 6.9 g/dL (6.4-8.9)
[2019-06-21 03:24] LABS: Alcohol < 10 mg/dL (<10)
[2019-06-21 04:37] VITALS: BP 159/80
== END 2019-06-21 05:39 | disposition home or self-care (01) ==
LOC: ED 01:03
DX: M54.5 Low back pain (principal); S20.20XA Contusion of thorax, unspecified, initial encounter; W19.XXXA Unspecified fall, initial encounter; Y92.9 Unspecified place or not applicable; R10.32 Left lower quadrant pain; M51.37 Other intervertebral disc degeneration, lumbosacral region; I25.2 Old myocardial infarction; I10 Essential (primary) hypertension; Z95.5 Presence of coronary angioplasty implant and graft; Z90.49 Acquired absence of other specified parts of digestive tract; Z88.5 Allergy status to narcotic agent; Z88.0 Allergy status to penicillin; Z85.43 Personal history of malignant neoplasm of ovary; Z85.818 Personal history of malignant neoplasm of other sites of lip, oral cavity, and pharynx; Z82.49 Family history of ischemic heart disease and other diseases of the circulatory system; Z80.9 Family history of malignant neoplasm, unspecified; Z87.891 Personal history of nicotine dependence
CPT/HCPCS: 36415; 72100; 80053; 80320; 81003; 81015; 85025; 86140; 87086; 93005; 96372; 99283; A9270-GY; G0480; J1885; J2270

== ENCOUNTER 2019-09-08 07:06 | Emergency (ER) | payer MEDICARE, MEDICAID ==
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
[2019-09-08] MEDS ORDERED: Albuterol/Ipratropium NEB.SOL* Albuterol 2.5 MG/Ipratropium 0.5 MG 3 ML INH ONE (07:32)
--- NOTE | 2019-09-08 07:34 | ED ---
Influenza-Like Illness - HPI Summary HPI Summary: 53-year-old female with a significant past medical history of cardiomyopathy reports the emergency department today complaining of flulike symptoms 2 weeks. She states she began having body aches, fevers, cough, shortness of breath, sore throat, right ear pain 2 weeks ago. She states she just returned home from visiting her daughter and her grandson was diagnosed with mononucleosis, whom She spent 2 weeks with. She denies alcohol, recreational drug use but does endorse smoking history. She denies chest pain, abdominal pain, pain with urination, rash, nausea, vomiting, diarrhea. - History of Current Complaint Chief Complaint: EDFluSymptoms Time Seen by Provider: 09/08/19 07:24 Hx Obtained From: Patient Onset/Duration: Gradual Onset, Lasting Weeks Severity: Mild Associated Signs & Symptoms: Fever, Myalgia, Cough, Sore Throat, Nasal Congestion Related Hx: Possible Flu/Infectious Exposure - Allergy/Home Medications Allergies/Adverse Reactions: Allergies Allergy/AdvReac Type Severity Reaction Status Date / Time codeine Allergy Anaphylatic Verified 09/08/19 07:08 Shock morphine Allergy Unknown Verified 09/08/19 07:08 Reaction Details Penicillins Allergy Anaphylatic Verified 09/08/19 07:08 Shock PMH/Surg Hx/FS Hx/Imm Hx Endocrine/Hematology History: Reports: Hx Thyroid Disease Denies: Hx Diabetes Cardiovascular History: Reports: Hx Angina, Hx Cardiomegaly - Post-partem cardiomyopathy;, Hx Coronary Artery Disease, Hx Hypercholesterolemia, Hx Hypertension, Hx Myocardial Infarction - in her s d/t virus 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 , Other Cardiovascular Problems/Disorders - stents x8, ventrical disease, post partem cardiomyopathy Denies: Hx Congestive Heart Failure, Hx Pacemaker/ICD, Hx Valvular Heart Disease Respiratory History: Denies: Hx Asthma, Hx Chronic Obstructive Pulmonary Disease (COPD), Hx Pneumonia, Hx Seasonal Allergies GI History: Reports: Hx Gall Bladder Disease - Removed in 2006 Sensory History: Denies: Hx Contacts or Glasses, Hx Hearing Aid Opthamlomology History: Denies: Hx Contacts or Glasses Psychiatric History: Reports: Hx Post Traumatic Stress Disorder - Severe PTSD Denies: Hx Panic Disorder - Cancer History Cancer Type, Location and Year: Throat CA, ovarian cancer Hx Radiation Therapy: Yes - 2013; she states she walked away from radiation therapy - Surgical History Surgery Procedure, Year, and Place: Hysterectomy, Lt wrist surgery with orif, right calcaneal surgery, tonsillectomy, appendectomy, laproscopic cholecystectomy, ovarian cancer removal. multiple heart cath and stentings - ( [facility] - [facility], [facility]. [facility], [facility] Hx Anesthesia Reactions: No Infectious Disease History: No Infectious Disease History: Denies: Traveled Outside the [place] in Last 30 Days - Family History Known Family History: Positive: Cardiac Disease, Other - cancer - Social History Alcohol Use: None Alcohol Amount: unknowm Hx Substance Use: No Substance Use Type: Reports: Other Substance Use Comment - Amount & Last Used: CBD oil Hx Tobacco Use: Yes Smoking Status (MU): Former Smoker Type: Cigarettes Amount Used/How Often: 4-10 daily Length of Time of Smoking/Using Tobacco: 10 years Have You Smoked in the Last Year: Yes Review of Systems Positive: Fever, Fatigue Eyes: Negative ENT: Negative Cardiovascular: Negative Positive: Cough Gastrointestinal: Negative Genitourinary: Negative Positive: Myalgia. Negative: Arthralgia, Edema Skin: Negative Neurological: Negative Psychological: Normal All Other Systems Reviewed And Are Negative: Yes Physical Exam Triage Information Reviewed: Yes Vital Signs On Initial Exam: Initial Vitals Temp Pulse Resp BP Pulse Ox 98.3 F 95 15 114/99 97 09/08/19 07:07 09/08/19 07:07 09/08/19 07:07 09/08/19 07:07 09/08/19 07:07 Vital Signs Reviewed: Yes Appearance: Positive: Well-Appearing, No Pain Distress, Well-Nourished Skin: Positive: Warm, Skin Color Reflects Adequate Perfusion Eyes: Positive: EOMI, KRISTOPHER ENT: Positive: Hearing grossly normal, Nasal congestion, TMs normal Respiratory/Lung Sounds: Positive: Breath Sounds Present, Rhonchi Cardiovascular: Positive: RRR, S1, S2 Abdomen Description: Positive: Nontender, Soft Bowel Sounds: Positive: Present Musculoskeletal: Positive: Strength/ROM Intact Neurological: Positive: Sensory/Motor Intact, Alert, Oriented to Person Place, Time, Speech Normal Psychiatric: Positive: Normal AVPU Assessment: Alert Procedures - Sedation Patient Received Moderate/Deep Sedation with Procedure: No Diagnostics - Vital Signs Vital Signs Temp Pulse Resp BP Pulse Ox 09/08/19 07:07 98.3 F 95 15 114/99 97 - Laboratory Result Diagrams: 09/08/19 08:08 09/08/19 08:08 Lab Statement: Any lab studies that have been ordered have been reviewed, and results considered in the medical decision making process. Flu Symptom Course/Dx - Course Course Of Treatment: Patient was evaluated in the emergency department today for flulike illness. She is seen and examined her vitals are stable and she is afebrile. Laboratory studies are done including Monospot and influenza screening which resulted as negative with no evidence of leukocytosis. Patient is likely suffering viral upper respiratory infection which can be managed as an outpatient. She is given a prescription for Mucinex and fluticasone presumptive relief. She was told to follow-up with her primary care provider in 3-5 days if her symptoms do not resolve. She is told to return to the emergency department immediately if she developed any new or worsening symptoms. - Diagnoses Differential Diagnosis/HQI/PQRI: Positive: Bronchitis, Influenza, Pneumonia, Upper Respiratory Infection, Other - Mononucleosis Provider Diagnoses: URI (upper respiratory infection) Discharge ED - Sign-Out/Discharge Documenting (check all that apply): Patient Departure - Discharge Plan Condition: Stable Disposition: HOME Prescriptions: Albuterol HFA INHALER* [Ventolin HFA Inhaler*] 1 puff INH Q4H PRN #100 mdi PRN Reason: Shortness Of Breath Fluticasone NASAL SPRAY 50MCG* [Flonase NASAL SPRAY 50MCG*] 2 spray BOTH NARES DAILY #1 btl guaiFENesin [Mucinex] 600 mg PO Q12HR #15 tab.er.12h Patient Education Materials: Upper Respiratory Infection (ED) Referrals: Care [facility] [Outside] - 3 Days No Primary Care Phys,NOPCP [Primary Care Provider] - 3 Days Additional Instructions: You were seen in the emergency department today for viral illness. Your Monospot was negative and influenza was negative. It is likely you have an upper respiratory infection due to a virus and this will resolve on its own shortly. In the meantime you may take steroid nasal spray for symptom relief as well as Mucinex. Please follow-up with your doctor in 3 days if your symptoms do not improve. Please return to the emergency department immediately if you develop any new or worsening symptoms. - Billing Disposition and Condition Condition: STABLE Disposition: Home - Attestation Statements Provider Attestation: I was available for consult. This patient was seen by the HONG. The patient was not presented to, seen by, or examined by me. Des Obregon MD
[2019-09-08 08:18] LABS: ABS Eosinophils 0.2 10^3/ul (0-0.6); ABS Lymphocytes 0.9 10^3/ul (1.0-4.8); ABS Monocytes 0.3 10^3/ul (0-0.8); ABS Neutrophils 2.9 10^3/ul (1.5-7.7); Eosinophil % 4.2 %; Hematocrit 42 % (35-47); Hemoglobin 14.6 g/dL (12.0-16.0); Lymphocyte % 20.4 %; Mean Corpuscular HGB Conc 35 g/dL (31-36); Mean Corpuscular Hemoglobin 30 pg (27-31); Mean Corpuscular Volume 86 fL (80-97); Mean Platelet Volume 6.5 fL (7.4-10.4); Platelet Count 283 10^3/uL (150-450); Red Cell Distribution Width 14 % (10-15); White Blood Count 4.3 10^3/uL (3.5-10.8)
[2019-09-08 08:35] LABS: Albumin 4.2 g/dL (3.2-5.2); Albumin/Globulin Ratio 1.6 (1-3); BUN/Creatinine Ratio 17.6 (8-20); Calcium 9.4 mg/dL (8.6-10.3); EGFR African American 98.6 (>60); EGFR Non-African American 81.5 (>60); Globulin 2.6 g/dL (2-4); Potassium 3.7 mmol/L (3.5-5.0); Total Bilirubin 0.4 mg/dL (0.2-1.0); Total Protein 6.8 g/dL (6.4-8.9)
[2019-09-08 08:57] LABS: Influenza A Molecular NEGATIVE (Negative); Influenza B Molecular NEGATIVE (Negative)
[2019-09-08 09:28] VITALS: BP 150/79
== END 2019-09-08 09:28 | disposition home or self-care (01) ==
LOC: ED 07:06
DX: J06.9 Acute upper respiratory infection, unspecified (principal); R50.9 Fever, unspecified; R05 Cough; J02.9 Acute pharyngitis, unspecified; R09.81 Nasal congestion; E03.9 Hypothyroidism, unspecified; E78.00 Pure hypercholesterolemia, unspecified; I25.10 Atherosclerotic heart disease of native coronary artery without angina pectoris; I10 Essential (primary) hypertension; I25.2 Old myocardial infarction; Z87.891 Personal history of nicotine dependence; R53.83 Other fatigue
CPT/HCPCS: 36415; 71046; 80053; 85025; 86308; 93005; 99282; A9270-GY